=== PATIENT | male | born 1995 | race Caucasian/White ===

== ENCOUNTER 2016-03-08 06:10 | Emergency (ER) | payer OTHER ==
[~2016-03-08] VITALS: Ht 182.9 cm; Wt 88.0 kg
[~2016-03-08 06:10] MED LIST: CLIN1CAP6 PO; LEVO.1 PO; METO100T PO; MONT4CHW2 CHEW
[2016-03-08 06:14] VITALS: BP 145/72; PULSE 74; RESP 18; TEMP 100.2; O2SAT 98
[2016-03-08 07:57] VITALS: O2SAT 98
[2016-03-08] MEDS ORDERED: SODIUM CHLOR 0.9% 1000 ML INJ 1,000 ML IV SCH (08:02)
[2016-03-08] MEDS ORDERED: DEXAMETHASONE SOD PHOS 20 MG/5 ML VIAL IV ONE (08:15)
[2016-03-08] MEDS ORDERED: RESP: ALBUTEROL 2.5 MG/IPRATROPIUM 0.5 MG NEB (SCH) NEB ONE (08:15)
[2016-03-08] MEDS ORDERED: KETOROLAC TROMETHAMINE 30 MG/ML (IVP) VIAL IV PUSH ONE ×2 (08:15→10:00)
[2016-03-08] MEDS ORDERED: ACETAMINOPHEN 325 MG TAB PO ONE (08:15)
[2016-03-08] MEDS ORDERED: DICYCLOMINE HCL 10 MG CAP PO ONE (08:15)
[2016-03-08] MEDS ORDERED: SODIUM CHLORIDE 0.9% FLUSH 5 ML FLUSH IVF PRN (08:15)
[2016-03-08] MEDS ORDERED: ONDANSETRON HCL 4 MG/2 ML VIAL IVP ONE (08:15)
[2016-03-08 08:18] VITALS: BP 136/63; PULSE 93; RESP 15; O2SAT 98
[2016-03-08 08:30] VITALS: BP 136/63; PULSE 91; RESP 16; O2SAT 98
--- NOTE | 2016-03-08 08:33 | RADRPT ---
EXAM DATE/TIME: 03/08/2016 08:26 [place] COMPARISON: CHEST PA & LAT, November 14, 2015, 0:05. INDICATIONS : Short of breath. MEDICAL HISTORY : Heart myopathy. SURGICAL HISTORY : CABG. ENCOUNTER: Initial ACUITY: 1 day PAIN SCORE: 0/10 LOCATION: Bilateral chest FINDINGS: Rotated and underinflated portable AP view of the chest demonstrates a normal-sized cardiac silhouett e. Patient is post median sternotomy. Lungs are underinflated but no effusion, consolidation, or pneu mothorax is visualized. The bones and soft tissues demonstrate no acute finding. There is stable dext roscoliosis of the thoracic spine. CONCLUSION: Stable chest x-ray. No acute cardiopulmonary abnormality is identified. Zak Ellsworth MD on March 08, 2016 at 8:30 Board Certified Radiologist. This report was verified electronically.
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
[2016-03-08 08:43] LABS: AUTOMATED NEUTROPHIL # 3.7 TH/MM3 (1.8-7.7); BASOPHIL % 0.4 % (0.0-2.0); EOSINOPHIL % 0.3 % (0.0-4.0); HEMATOCRIT 39.8 % (39.0-51.0); HEMO FLAGS DIFF FINAL; LYMPH % 14.6 % (9.0-44.0); LYMPHOCYTE # 0.8 TH/MM3 (1.0-4.8); MEAN CELL VOLUME 84.2 FL (80.0-100.0); MEAN CORPUSCULAR HEMOGLOBIN 27.3 PG (27.0-34.0); MEAN CORPUSCULAR HGB CONC 32.4 % (32.0-36.0); MONO % 18.1 % (0.0-8.0); NEUT % 66.6 % (16.0-70.0); PLATELET COUNT 216 TH/MM3 (150-450); RED BLOOD COUNT 4.72 MIL/MM3 (4.50-5.90); RED CELL DISTRIBUTION WIDTH 16.1 % (11.6-17.2); WHITE BLOOD COUNT 5.6 TH/MM3 (4.0-11.0)
[2016-03-08 08:53] LABS: APTT (PATIENT) 29.4 SEC (24.3-30.1); PROTHROMBIN TIME - PATIENT 11.4 SEC (9.8-11.6)
[2016-03-08 09:01] LABS: ALT (GPT) 34 U/L (9-52); ANION GAP 10 MEQ/L (5-15); AST (GOT) 14 U/L (15-39); BICARBONATE 22.2 MEQ/L (21.0-32.0); BLOOD UREA NITROGEN 10 MG/DL (7-18); CHLORIDE 107 MEQ/L (98-107); GLOMERULAR FILTRATION RATE 76 ML/MIN (>89); POTASSIUM 3.6 MEQ/L (3.5-5.1); SODIUM (NA) 139 MEQ/L (136-145)
[2016-03-08 09:04] LABS: ALKALINE PHOSPHATASE 87 U/L (45-117); TOTAL BILIRUBIN ADULT 0.4 MG/DL (0.2-1.0)
[2016-03-08 09:10] LABS: BLOOD, URINE NEG (NEG); COMMENT (UR) CULT NOT INDICATED; CULTURE IF INDICATED CULT NOT INDICATED; GLUCOSE,URINE NEG (NEG); KETONE, URINE NEG (NEG); MUCUS URINE FEW /lpf (OCC); NITRITE,URINE NEG (NEG); URINE COLOR YELLOW (YELLW/STRAW)
[2016-03-08] MEDS ORDERED: OSEL75 PO (09:53)
[2016-03-08 10:09] VITALS: TEMP 99.3
[2016-03-08 16:44] LABS: C. DIFF EPI 027 PRESUMPTIVE NEGATIVE (NEGATIVE); C. DIFF TOXIN PCR NEGATIVE (NEGATIVE)
[2016-03-08] MEDS ORDERED: BENZ100 PO (21:18)
[2016-03-08] MEDS ORDERED: KETO10 PO (21:18)
[2016-03-08] MEDS ORDERED: PRED20 PO (21:18)
[2016-03-08] MEDS ORDERED: ZOFR4TAB PO (21:18)
== END 2016-03-08 10:23 | disposition home or self-care (01) ==
LOC: NEPE 06:10
DX: J10.1 Influenza due to other identified influenza virus with other respiratory manifestations (principal); E86.0 Dehydration; I42.2 Other hypertrophic cardiomyopathy; I25.10 Atherosclerotic heart disease of native coronary artery without angina pectoris; E03.9 Hypothyroidism, unspecified; Z72.0 Tobacco use
CPT/HCPCS: 71010; 80053; 81001; 83690; 85025; 85610; 85730; 87081; 87493; 87804; 87880; 96361; 96374; 96375; 96376; 99284; J1100; J1885; J2405; J7030

== ENCOUNTER 2016-03-08 20:49 | Emergency (ER) | payer OTHER ==
[~2016-03-08 20:49] MED LIST changes: +OSEL75 PO
[2016-03-08 20:55] VITALS: BP 145/77; PULSE 97; RESP 16; TEMP 98.7; O2SAT 99
[2016-03-08] MEDS ORDERED: SODIUM CHLOR 0.9% 1000 ML INJ 1,000 ML IV ONE (21:09)
[2016-03-08] MEDS ORDERED: ONDANSETRON HCL 4 MG/2 ML VIAL IVP ONE (21:15)
[2016-03-08] MEDS ORDERED: methylPREDNISolone SOD SUCC 125 MG/2 ML VIAL IV PUSH ONE (21:15)
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
[2016-03-08] MEDS ORDERED: BENZ100 PO (21:18)
[2016-03-08] MEDS ORDERED: ZOFR4TAB PO (21:18)
[2016-03-08] MEDS ORDERED: KETO10 PO (21:18)
[2016-03-08] MEDS ORDERED: PRED20 PO (21:18)
== END 2016-03-08 22:52 | disposition home or self-care (01) ==
LOC: NEPB 20:49
DX: J10.1 Influenza due to other identified influenza virus with other respiratory manifestations (principal); I42.1 Obstructive hypertrophic cardiomyopathy; I25.10 Atherosclerotic heart disease of native coronary artery without angina pectoris
CPT/HCPCS: 96361; 96374; 96375; 99283; J2405; J2930; J7030

== ENCOUNTER 2016-04-08 21:00 | Inpatient (IN) | payer OTHER ==
[~2016-04-08] VITALS: Ht 182.9 cm; Wt 88.5 kg
[~2016-04-08 21:00] MED LIST changes: +BENZ100 PO; +KETO10 PO; +PRED20 PO; +ZOFR4TAB PO
[2016-04-08 21:02] VITALS: BP 143/63; PULSE 78; RESP 20; TEMP 98.5; O2SAT 98
[2016-04-08] MEDS ORDERED: SODIUM CHLOR 0.9% 1000 ML INJ 1,000 ML IV SCH (21:36)
--- NOTE | 2016-04-08 21:41 | PD ---
HPI Chief Complaint: Abdominal Pain Time Seen by Provider: 21:27 Travel History International Travel<30 days: No Contact w/Intl Traveler<30days: No Traveled to known affect area: No History of Present Illness HPI 20-year-old male history of hypertrophic obstructive cardiomyopathy, hypothyroidism presents for evaluation of right upper quadrant abdominal pain. He reports this evening at approximately 6:37 PM he ate a hamburger and drank a few sips of beer. Shortly thereafter he developed right upper quadrant abdominal pain which she describes as stabbing, constant but getting worse in waves, associated with nausea and 2 episodes of green "bilious" vomiting. He tried taking a total of 1200 mg of ibuprofen but the pain persists which prompted evaluation. Denies any radiating pain symptoms, chest pain or shortness of breath, dysuria, flank pain, fevers or chills. He does report that he was hospitalized in late January in [place] with biliary colic type symptoms. He was told that he needed to have his gallbladder removed but he ended up returning here for school shortly thereafter without undergoing cholecystectomy. He has no other complaints at this time. PFSH Past Medical History Hx Anticoagulant Therapy: No Autoimmune Disease: No Heart Rhythm Problems: Yes Cancer: No Cardiomyopathy: Yes Cardiovascular Problems: Yes Chemotherapy: No Cerebrovascular Accident: No Coronary Artery Disease: Yes Diabetes: No Diminished Hearing: No Endocrine: Yes Genitourinary: No Immune Disorder: No Musculoskeletal: Yes (RECEIVES STEROID INJECTIONS FOR BACK) Neurologic: No Psychiatric: No Respiratory: No Immunizations Current: Yes Thyroid Disease: Yes (Hypothyroid) Past Surgical History Appendectomy: Yes (05/09/06) Cardiac Surgery: Yes (Removal of extra muscle out of mitral wall ) Hysterectomy: No Thoracic Surgery: Yes (Heart transplant age 6) Valve Replacement: Yes (removal of extra muscle out of mitrial wall ) Other Surgery: Yes (Subaortic resection) Social History Alcohol Use: Yes (occ) Tobacco Use: Yes (Cigars occ.) Substance Use: No Allergies-Medications (Allergen,Severity, Reaction): Coded Allergies: Penicillin (Verified Allergy, Intermediate, Rash, 04/08/16) Sulfa (Verified Allergy, Intermediate, Rash, 04/08/16) Imitrex (Verified Adverse Reaction, Severe, SVT, 04/08/16) Reported Meds & Prescriptions Reported Meds & Active Scripts Active Zofran (Ondansetron HCl) 4 Mg Tab 4 Mg PO Q6HR PRN Reported Metoprolol Succinate/HCTZ 100-12.5 ER 1 Tab Tab 1 Tab PO BID Synthroid (Levothyroxine Sodium) 100 Mcg Tab 100 Mcg PO DAILY Singulair (Montelukast Sodium) 4 Mg Chew 4 Mg CHEW HS Review of Systems Except as stated in HPI: all other systems reviewed are Neg Physical Exam Narrative GENERAL: Well-developed well-nourished male in no acute distress SKIN: Warm and dry. HEAD: Atraumatic. Normocephalic. EYES: Pupils equal and round. No scleral icterus. No injection or drainage. ENT: No nasal bleeding or discharge. Mucous membranes pink and moist. NECK: Trachea midline. No JVD. CARDIOVASCULAR: Regular rate and rhythm. 1+ holosystolic murmur noted. RESPIRATORY: No accessory muscle use. Clear to auscultation. Breath sounds equal bilaterally. GASTROINTESTINAL: Abdomen soft, tender to palpation right upper quadrant without guarding. No CVA tenderness. MUSCULOSKELETAL: No obvious deformities. No edema. NEUROLOGICAL: Awake and alert. No obvious cranial nerve deficits. Motor grossly within normal limits. Normal speech. PSYCHIATRIC: Appropriate mood and affect; insight and judgment normal. Data Data Last Documented VS Vital Signs Date Time Temp Pulse Resp B/P Pulse Ox O2 Delivery O2 Flow Rate FiO2 04/09/16 00:38 80 16 108/52 98 Room Air 04/08/16 21:02 98.5 Orders Complete Blood Count With Diff (04/08/16 21:36) Comprehensive Metabolic Panel (04/08/16 21:36) Lipase (04/08/16 21:36) Prothrombin Time / Inr (Pt) (04/08/16 21:36) Act Partial Throm Time (Ptt) (04/08/16 21:36) Us Abdomen Gallbladder (04/08/16 ) Iv Access Insert/Monitor (04/08/16 21:36) Ecg Monitoring (04/08/16 21:36) Oximetry (04/08/16 21:36) Ondansetron Inj (Zofran Inj) (04/08/16 21:45) Pantoprazole Inj (Protonix Inj) (04/08/16 21:45) Sodium Chlor 0.9% 1000 Ml Inj (Ns 1000 M (04/08/16 21:36) Sodium Chloride 0.9% Flush (Ns Flush) (04/08/16 21:45) Hydromorphone Pf Inj (Dilaudid Pf Inj) (04/08/16 21:45) Hydromorphone Pf Inj (Dilaudid Pf Inj) (04/08/16 22:45) Oral Contrast - Adult (04/08/16 22:56) Hydromorphone Pf Inj (Dilaudid Pf Inj) (04/09/16 00:30) Diatrizoate Liq (Md Marroquin Liq) (04/09/16 00:31) Ct Abd/Pel W Iv Contrast(Rout) (04/09/16 00:45) Iohexol 350 Inj (Omnipaque 350 Inj) (04/09/16 01:26) Ceftriaxone Inj (Rocephin Inj) (04/09/16 02:15) Metronidazole 500 Mg Inj (Flagyl 500 Mg (04/09/16 02:15) Admit Order (Ed Use Only) (04/09/16 ) Vital Signs (Adult) FRED.Q4H (04/09/16 02:15) Activity Oob Ad Pascale (04/09/16 02:15) Labs Laboratory Tests Test 04/08/16 21:45 White Blood Count 7.5 TH/MM3 Red Blood Count 3.80 MIL/MM3 Hemoglobin 10.6 GM/DL Hematocrit 32.4 % Mean Corpuscular Volume 85.2 FL Mean Corpuscular Hemoglobin 27.8 PG Mean Corpuscular Hemoglobin 32.7 % Concent Red Cell Distribution Width 17.0 % Platelet Count 363 TH/MM3 Mean Platelet Volume 7.3 FL Neutrophils (%) (Auto) 43.5 % Lymphocytes (%) (Auto) 45.1 % Monocytes (%) (Auto) 7.6 % Eosinophils (%) (Auto) 2.5 % Basophils (%) (Auto) 1.3 % Neutrophils # (Auto) 3.3 TH/MM3 Lymphocytes # (Auto) 3.4 TH/MM3 Monocytes # (Auto) 0.6 TH/MM3 Eosinophils # (Auto) 0.2 TH/MM3 Basophils # (Auto) 0.1 TH/MM3 CBC Comment DIFF FINAL Differential Comment Prothrombin Time 10.4 SEC Prothromb Time International 0.9 RATIO Ratio Activated Partial 25.7 SEC Thromboplast Time Sodium Level 141 MEQ/L Potassium Level 4.0 MEQ/L Chloride Level 106 MEQ/L Carbon Dioxide Level 26.9 MEQ/L Anion Gap 8 MEQ/L Blood Urea Nitrogen 17 MG/DL Creatinine 1.35 MG/DL Estimat Glomerular Filtration 67 ML/MIN Rate Random Glucose 101 MG/DL Calcium Level 8.9 MG/DL Total Bilirubin 0.5 MG/DL Aspartate Amino Transf 24 U/L (AST/SGOT) Alanine Aminotransferase 35 U/L (ALT/SGPT) Alkaline Phosphatase 89 U/L Total Protein 8.0 GM/DL Albumin 4.3 GM/DL Lipase 114 U/L MDM Medical Decision Making Medical Screen Exam Complete: Yes Emergency Medical Condition: Yes Medical Record Reviewed: Yes Interpretation(s) CBC hemoglobin 10.6 otherwise unremarkable CMP creatinine 1.35 otherwise unremarkable Differential Diagnosis Cholecystitis, biliary colic, choledocholithiasis, cholangitis, gastritis, pancreatitis Narrative Course 20-year-old male with right upper quadrant abdominal pain, nausea, vomiting after eating a hamburger this evening. Quadrant ultrasound has been ordered, basic lab work, Protonix, small dose of Dilaudid. The patient's hemoglobin is mildly low at 10.6, he does note that he gave blood about 1 week ago. Denies any hematochezia or hematemesis. Additional dose of 0.5 mg Dilaudid administered prior to ultrasound. At the end of my shift the patient was signed out to Dr. Hess pending CR/ ultrasound imaging. Holger Kline Apr 08, 2016 21:41
[2016-04-08] MEDS ORDERED: HYDROmorphone HCL PF 1 MG/ML VIAL IV PUSH ONE ×2 (21:45→22:45)
[2016-04-08] MEDS ORDERED: ONDANSETRON HCL 4 MG/2 ML VIAL IVP ONE (21:45)
[2016-04-08] MEDS ORDERED: SODIUM CHLORIDE 0.9% FLUSH 5 ML FLUSH IVF PRN (21:45)
[2016-04-08] MEDS ORDERED: PANTOPRAZOLE SODIUM 40 MG VIAL IVP ONE (21:45)
[2016-04-08 21:47] VITALS: PULSE 86; RESP 16; O2SAT 98
[2016-04-08 22:10] LABS: AUTOMATED NEUTROPHIL # 3.3 TH/MM3 (1.8-7.7); BASOPHIL # 0.1 TH/MM3 (0-0.2); BASOPHIL % 1.3 % (0.0-2.0); EOSINOPHIL # 0.2 TH/MM3 (0-0.4); EOSINOPHIL % 2.5 % (0.0-4.0); HEMATOCRIT 32.4 % (39.0-51.0); HEMO FLAGS DIFF FINAL; LYMPH % 45.1 % (9.0-44.0); LYMPHOCYTE # 3.4 TH/MM3 (1.0-4.8); MEAN CELL VOLUME 85.2 FL (80.0-100.0); MEAN CORPUSCULAR HEMOGLOBIN 27.8 PG (27.0-34.0); MEAN CORPUSCULAR HGB CONC 32.7 % (32.0-36.0); MONO % 7.6 % (0.0-8.0); NEUT % 43.5 % (16.0-70.0); PLATELET COUNT 363 TH/MM3 (150-450); WHITE BLOOD COUNT 7.5 TH/MM3 (4.0-11.0)
[2016-04-08 22:32] LABS: APTT (PATIENT) 25.7 SEC (24.3-30.1); INTERNATIONAL NORMALIZED RATIO 0.9 RATIO; PROTHROMBIN TIME - PATIENT 10.4 SEC (9.8-11.6)
[2016-04-08 22:38] LABS: ALKALINE PHOSPHATASE 89 U/L (45-117); TOTAL BILIRUBIN ADULT 0.5 MG/DL (0.2-1.0)
[2016-04-08 22:39] LABS: ALT (GPT) 35 U/L (9-52); ANION GAP 8 MEQ/L (5-15); AST (GOT) 24 U/L (15-39); BICARBONATE 26.9 MEQ/L (21.0-32.0); BLOOD UREA NITROGEN 17 MG/DL (7-18); CHLORIDE 106 MEQ/L (98-107); GLOMERULAR FILTRATION RATE 67 ML/MIN (>89); SODIUM (NA) 141 MEQ/L (136-145)
--- NOTE | 2016-04-08 23:45 | PD ---
Data Data Last Documented VS Vital Signs Date Time Temp Pulse Resp B/P Pulse Ox O2 Delivery O2 Flow Rate FiO2 04/09/16 00:38 80 16 108/52 98 Room Air 04/08/16 21:02 98.5 Orders Complete Blood Count With Diff (04/08/16 21:36) Comprehensive Metabolic Panel (04/08/16 21:36) Lipase (04/08/16 21:36) Prothrombin Time / Inr (Pt) (04/08/16 21:36) Act Partial Throm Time (Ptt) (04/08/16 21:36) Us Abdomen Gallbladder (04/08/16 ) Iv Access Insert/Monitor (04/08/16 21:36) Ecg Monitoring (04/08/16 21:36) Oximetry (04/08/16 21:36) Ondansetron Inj (Zofran Inj) (04/08/16 21:45) Pantoprazole Inj (Protonix Inj) (04/08/16 21:45) Sodium Chlor 0.9% 1000 Ml Inj (Ns 1000 M (04/08/16 21:36) Sodium Chloride 0.9% Flush (Ns Flush) (04/08/16 21:45) Hydromorphone Pf Inj (Dilaudid Pf Inj) (04/08/16 21:45) Hydromorphone Pf Inj (Dilaudid Pf Inj) (04/08/16 22:45) Oral Contrast - Adult (04/08/16 22:56) Hydromorphone Pf Inj (Dilaudid Pf Inj) (04/09/16 00:30) Diatrizoate Liq ( Gastroview Liq) (04/09/16 00:31) Ct Abd/Pel W Iv Contrast(Rout) (04/09/16 00:45) Iohexol 350 Inj (Omnipaque 350 Inj) (04/09/16 01:26) Ceftriaxone Inj (Rocephin Inj) (04/09/16 02:15) Metronidazole 500 Mg Inj (Flagyl 500 Mg (04/09/16 02:15) Admit Order (Ed Use Only) (04/09/16 ) Vital Signs (Adult) FRED.Q4H (04/09/16 02:15) Activity Oob Ad Pascale (04/09/16 02:15) Diet Npo (04/09/16 Breakfast) Labs Laboratory Tests Test 04/08/16 21:45 White Blood Count 7.5 TH/MM3 Red Blood Count 3.80 MIL/MM3 Hemoglobin 10.6 GM/DL Hematocrit 32.4 % Mean Corpuscular Volume 85.2 FL Mean Corpuscular Hemoglobin 27.8 PG Mean Corpuscular Hemoglobin 32.7 % Concent Red Cell Distribution Width 17.0 % Platelet Count 363 TH/MM3 Mean Platelet Volume 7.3 FL Neutrophils (%) (Auto) 43.5 % Lymphocytes (%) (Auto) 45.1 % Monocytes (%) (Auto) 7.6 % Eosinophils (%) (Auto) 2.5 % Basophils (%) (Auto) 1.3 % Neutrophils # (Auto) 3.3 TH/MM3 Lymphocytes # (Auto) 3.4 TH/MM3 Monocytes # (Auto) 0.6 TH/MM3 Eosinophils # (Auto) 0.2 TH/MM3 Basophils # (Auto) 0.1 TH/MM3 CBC Comment DIFF FINAL Differential Comment Prothrombin Time 10.4 SEC Prothromb Time International 0.9 RATIO Ratio Activated Partial 25.7 SEC Thromboplast Time Sodium Level 141 MEQ/L Potassium Level 4.0 MEQ/L Chloride Level 106 MEQ/L Carbon Dioxide Level 26.9 MEQ/L Anion Gap 8 MEQ/L Blood Urea Nitrogen 17 MG/DL Creatinine 1.35 MG/DL Estimat Glomerular Filtration 67 ML/MIN Rate Random Glucose 101 MG/DL Calcium Level 8.9 MG/DL Total Bilirubin 0.5 MG/DL Aspartate Amino Transf 24 U/L (AST/SGOT) Alanine Aminotransferase 35 U/L (ALT/SGPT) Alkaline Phosphatase 89 U/L Total Protein 8.0 GM/DL Albumin 4.3 GM/DL Lipase 114 U/L [facility] Supervised Visit with ARLEN: Yes Narrative Course Patient care assumed from Holger Kline [facility] at 2300. Briefly patient is a 20- year-old male presents right upper quadrant pain after eating a greasy hamburger tonight. Patient states she's had problems with his gallbladder in the past but is yet to have it removed. Patient denies any fever. He does state he has one episode of "bilious green vomiting". Patient does have an ultrasound which is equivocal for a coccus cholecystitis. CT scan of the abdomen performed after patient was given total of 2 mg Dilaudid and is negative for acute disease. Patient will be discussed with Dr. Miranda is laboratory operations coordinator for general surgery likely admitted for intractable abdominal pain and surgical consultation. Dr. Suárez has been consulted, will cover with roceparash and flagyl. Patient to CDU for night. Transition orders have been placed. Diagnosis Primary Impression: Right upper quadrant abdominal pain Admitting Information Admitting Physician Requests: Observation Condition: Stable Zeyad Hess MD Apr 08, 2016 23:45
[2016-04-09] VITALS (8 sets, daily range): BP systolic 94–129; BP diastolic 41–74; PULSE 64–87; RESP 14–20; TEMP 96.4–98.1; O2SAT 95–100
--- NOTE | 2016-04-09 00:06 | RADRPT ---
EXAM DATE/TIME: 04/08/2016 23:06 [facility] COMPARISON: No previous studies available for comparison. INDICATIONS : Right upper quadrant pain. MEDICAL HISTORY : Hypothyroidism. Cardiomyopathy. Coronary artery disease. Back pain. Irregul ar heart beat. Blood transfusion. SURGICAL HISTORY : Appendectomy. Heart transplant. Mitral valve surgery. Right knee arthrosco py. Subaortic resction. ENCOUNTER: Initial ACUITY: 1 day PAIN SCORE: 10/10 LOCATION: Right upper quadrant MEASUREMENTS: LIVER: 15.4 cm length COMMON DUCT: 4 mm RIGHT KIDNEY: 9.9 x 5.1 x 4.4 cm FINDINGS: Ultrasound of the upper abdomen demonstrates increased echogenicity of the liver compatible with fatt y infiltration or hepatocellular disease. The spleen is unremarkable. The pancreas is not visualized secondary to overlying bowel gas. The right kidney is unremarkable. The gallbladder wall is slightly thickened but no stones are identified. A positive sonographic Slater sign is present. Cholecystitis is not excluded. CONCLUSION: Possible acalculus cholecystitis. Radionuclide imaging is recommended for further evaluation if clini heaven indicated. There is fatty infiltration of the liver. Dickson Wheat MD on April 09, 2016 at 0:03 Board Certified Radiologist. This report was verified electronically.
[2016-04-09] MEDS ORDERED: HYDROmorphone HCL PF 1 MG/ML VIAL IV PUSH ONE (00:30)
[2016-04-09] MEDS ORDERED: DIATRIZOATE MEGLUM/DIATRIZOATE SOD 9 ML CUP ONE (00:31)
[2016-04-09] MEDS ORDERED: IOHEXOL 350 MG/ML 10 ML VIAL (for RAD DIAG) IV ONE (01:26)
--- NOTE | 2016-04-09 01:55 | RADRPT ---
EXAM DATE/TIME: 04/09/2016 01:26 [facility] COMPARISON: CT ABDOMEN & PELVIS W CONTRAST, September 01, 2015, 22:22. INDICATIONS : Right upper quadrant abdominal pain. IV CONTRAST: 80 cc Omnipaque 350 (iohexol) IV ORAL CONTRAST: Prescribed oral contrast ingested. RADIATION DOSE: 15.81 CTDIvol (mGy) MEDICAL HISTORY : Cardiovascular disease. Coronary artery disease. SURGICAL HISTORY : Appendectomy. ENCOUNTER: Initial ACUITY: 1 week PAIN SCALE: 4/10 LOCATION: Right upper quadrant abdomen TECHNIQUE: Volumetric scanning of the abdomen and pelvis was performed. Using automated exposure control and ad justment of the mA and/or kV according to patient size, radiation dose was kept as low as reasonably achievable to obtain optimal diagnostic quality images. FINDINGS: LOWER LUNGS: The visualized lower lungs are clear. LIVER: Homogeneous density without lesion. There is no dilation of the biliary tree. No calcified gallston es. SPLEEN: Normal size without lesion. PANCREAS: Within normal limits. KIDNEYS: Normal in size and shape. There is no mass, stone or hydronephrosis. ADRENAL GLANDS: Within normal limits. VASCULAR: There is no aortic aneurysm. BOWEL/MESENTERY: The stomach, small bowel, and colon demonstrate no acute abnormality. There is no free intraperitone al air or fluid. ABDOMINAL WALL: Within normal limits. RETROPERITONEUM: There is no lymphadenopathy. BLADDER: No wall thickening or mass. REPRODUCTIVE: Within normal limits. INGUINAL: There is no lymphadenopathy or hernia. MUSCULOSKELETAL: Moderate scoliotic deformity is present to the left with a rotatory component with the apex at L3 CONCLUSION: 1. No evidence of acute abdominal or pelvic process. No masses are identified. Dickson Wheat MD on April 09, 2016 at 1:51 Board Certified Radiologist. This report was verified electronically.
[2016-04-09] MEDS ORDERED: cefTRIAXone INJ 1,000 MG in SODIUM CHLORIDE 0.9% INJ 100 ML IV ONE (02:15)
[2016-04-09] MEDS ORDERED: metroNIDAZOLE 500 MG INJ 100 ML IV ONE (02:15)
[2016-04-09] MEDS ORDERED: ONDANSETRON HCL 4 MG/2 ML VIAL IV PUSH PRN (02:45)
[2016-04-09] MEDS ORDERED: SODIUM CHLOR 0.9% 1000 ML INJ 1,000 ML IV SCH ×2 (02:45→08:06)
[2016-04-09] MEDS: MORPHINE SULFATE 4 MG/ML INJ IV PRN ×3 (04:11→22:03)
[2016-04-09] MEDS ORDERED: METO-489 PO (05:09)
[2016-04-09] MEDS ORDERED: MAGNESIUM HYDROXIDE SUSP 30 ML CUP PO PRN (08:15)
[2016-04-09] MEDS ORDERED: SODIUM CHLORIDE 0.9% FLUSH 5 ML FLUSH IVF PRN (08:15)
[2016-04-09] MEDS ORDERED: ACETAMINOPHEN/HYDROcodone 325 MG/5 MG TAB PO PRN ×4 (08:15→18:15)
--- NOTE | 2016-04-09 08:50 | MH ---
cc: NEDA MCKEON DATE OF ADMISSION: 04/09/2016 CHIEF COMPLAINT Right upper quadrant pain. HISTORY OF PRESENT ILLNESS The patient is a 20-year-old male who presented to [facility] with intractable right upper quadrant pain. The patient had a history of right upper quadrant pain and biliary colic that was managed non-operatively in [place], as well as a strong family history of gallbladder disease. The patient ate a cheeseburger and macaroni and cheese and developed severe 10/10 right upper quadrant pain just below his xiphoid and to the right of his xiphoid. This is the pain that he had previous but much worse this time. The patient was evaluated in the emergency department with an ultrasound and CT scan suggestive of gallbladder disease, although no stones were visualized. Liver function tests were within normal limits. The patient did not respond to IV medication analgesics and had persistent pain. Therefore, there was concern for early acute cholecystitis due to the persistent pain and positive Slater's sign on exam. General surgery was consulted for evaluation and treatment of possible acute cholecystitis. The patient denied any fevers, chills, night sweats, nausea, vomiting, constipation, diarrhea, jaundice or any other sick contacts or illnesses. REVIEW OF SYSTEMS A 12-point review of systems was discussed with the patient and negative except for the pertinent positives mentioned above in history present illness. PAST MEDICAL HISTORY 1. History of cardiomyopathy treated with surgery in 2011. 2. Back pain. 3. Hypothyroidism. PAST SURGICAL HISTORY 1. Appendectomy in 2006. 2. Surgery for cardiomyopathy in 2011. ALLERGIES 1. PENICILLIN. 2. SULFA. 3. IMITREX MEDICATIONS 1. Synthroid. 2. Singulair. 3. Metoprolol. FAMILY HISTORY Strong history of benign gallbladder disease. SOCIAL HISTORY The patient drinks alcohol, occasionally smokes cigars, denies illicit drug use. PHYSICAL EXAMINATION VITAL SIGNS: Temperature 98.5 degrees, pulse 86, respiratory rate 16, blood pressure 143/63, O2 saturation 98%. GENERAL: The patient is a well-developed, well-nourished white male in no acute distress. He does not appear acute or chronically ill. HEENT: Head is normocephalic, atraumatic. Pupils round and reactive to light. Sclera is anicteric. Mucous membranes are moist. NECK: Supple. No JVD. LUNGS: Clear to auscultation bilaterally. Non-labored breathing pattern. HEART: Regular rate and rhythm. No murmurs. ABDOMEN: Soft. Tender to palpation in the right upper quadrant. Positive Slater's sign with deep inspiration. No ascites. No hernias. No organomegaly. BACK: No CVA tenderness. EXTREMITIES: No clubbing, cyanosis or edema. NEUROLOGIC: The patient is awake, alert and oriented x4, moving all extremities. Nonfocal. Cranial nerves II through XII grossly intact. ASSESSMENT AND PLAN The patient is a 20-year-old male with history of cardiomyopathy asymptomatic at this time with likely acute cholecystitis with severe unremitting right upper quadrant pain. I discussed with the patient the diagnosis and management of acute cholecystitis. I discussed the antibiotics and non-operative management as well as surgical intervention. Despite the patient's heart history he strongly desires to undergo laparoscopic cholecystectomy as he has had previous episodes in the past and would like to have pain relief from these recurrent episodes. We will continue the patient's home medications, give adequate analgesia and start the patient on appropriate antibiotics. Will perform a laparoscopic cholecystectomy at next available urgent operating time either later today or possibly tomorrow morning. MD NIGEL Gillespie/GALA /8:04 AM /8:34 AM
[2016-04-09] MEDS: HYDROCHLOROTHIAZIDE 12.5 MG CAP PO SCH ×2 (09:00→20:51)
[2016-04-09] MEDS ORDERED: NON-FORMULARY DRUG (Metoprolol Succinate/HCTZ 100-12.5 ER 1 TAB) PO SCH (09:00)
[2016-04-09] MEDS: METOPROLOL SUCCINATE 50 MG EXTENDED RELEASE TAB PO SCH ×2 (09:00→20:51)
[2016-04-09] MEDS ORDERED: LACTATED RINGER'S 1000 ML INJ 1,000 ML IV ONE ×2 (09:49)
[2016-04-09] MEDS ORDERED: KETOROLAC TROMETHAMINE 60 MG/2 ML (IM) VIAL IM ONE (09:49)
[2016-04-09] MEDS ORDERED: PHENYLEPH/NS 1000 MCG/10 ML SYR IV ONE (09:49)
[2016-04-09] MEDS ORDERED: NEOSTIGMINE 3 MG/3 ML SYR IV ONE (09:49)
[2016-04-09] MEDS ORDERED: PROPOFOL 200 MG/20 ML AMP IV ONE (09:49)
[2016-04-09] MEDS: ONDANSETRON HCL 4 MG/2 ML VIAL IV PRN ×2 (10:12→20:29)
[2016-04-09] MEDS: LEVOTHYROXINE SODIUM 100 MCG TAB PO SCH (10:12)
[2016-04-09] MEDS: PANTOPRAZOLE SODIUM 40 MG VIAL IVP SCH (10:13)
[2016-04-09] MEDS: CIPROFLOXACIN 400 MG PREMIX 200 ML IV SCH ×2 (10:13→20:27)
[2016-04-09] MEDS: HYDROmorphone HCL PF 1 MG/ML VIAL IVP PRN ×2 (11:11→13:51)
[2016-04-09] MEDS: metroNIDAZOLE 500 MG INJ 100 ML IV SCH ×2 (12:06→19:00)
[2016-04-09] MEDS ORDERED: BUPIVACAINE/EPINEPHRINE 0.25% PF 30 ML VIAL ONE (16:22)
[2016-04-09] MEDS ORDERED: ceFAZolin INJ 1,000 MG VIAL ONE (16:22)
--- NOTE | 2016-04-09 18:01 | HHI.PR ---
Immediate Post Op Note Procedure Date: Apr 09, 2016 Pre Op Diagnosis: (1) Acute cholecystitis Post Op Diagnosis: (1) Acute cholecystitis Surgeon: Chet Adams Java Programmer(s): none Procedure: Laparoscopic Cholecystectomy Findings: acute inflammation/edema Complications: none Specimen(s) removed: GB Estimated blood loss: 10ml Anesthesia: General Drains: None IVF Patient to: PACU Patient Condition: Good Chet Adams MD Apr 09, 2016 18:01
[2016-04-09] MEDS ORDERED: *HYDROmorphone PF 1 MG VIAL PERIprocedural Use ONLY ONE ×2 (18:14→18:28)
[2016-04-09] MEDS ORDERED: Post-op Orders (for Pharmacy) MISC XX ONE (18:15)
[2016-04-09] MEDS ORDERED: MIDAZOLAM HCL 2 MG/2 ML VIAL ONE (18:20)
[2016-04-09] MEDS ORDERED: fentaNYL CITRATE 250 MCG/5 ML AMP ONE (18:21)
[2016-04-09] MEDS ORDERED: MORPHINE SULFATE 4 MG/ML INJ ONE (18:21)
[2016-04-09] MEDS ORDERED: LORazepam 2 MG/ML VIAL ONE (18:40)
[2016-04-09] MEDS ORDERED: LORazepam 2 MG/ML VIAL IV ONE (19:15)
[2016-04-09] MEDS ORDERED: HYDROmorphone HCL PF 1 MG/ML VIAL IV ONE ×2 (19:15)
[2016-04-09] MEDS ORDERED: HYDROmorphone HCL PF 1 MG/ML VIAL IV PRN (19:15)
[2016-04-09] MEDS: KETOROLAC TROMETHAMINE 30 MG/ML (IVP) VIAL IVP PRN (20:04)
[2016-04-09] MEDS: SODIUM CHLORIDE 0.9% FLUSH 5 ML FLUSH IVF SCH (20:24)
[2016-04-09] MEDS ORDERED: diphenhydrAMINE HCL 50 MG/ML VIAL ONE (20:35)
[2016-04-09] MEDS: MONTELUKAST SODIUM 4 MG CHEWABLE TAB CHEW SCH (20:50)
[2016-04-10] VITALS (7 sets, daily range): BP systolic 98–130; BP diastolic 56–71; PULSE 66–86; RESP 16–18; TEMP 98–100.6; O2SAT 96–99
[2016-04-10] MEDS: HYDROmorphone HCL PF 1 MG/ML VIAL IVP PRN ×8 (00:59→22:06)
[2016-04-10] MEDS: KETOROLAC TROMETHAMINE 30 MG/ML (IVP) VIAL IVP PRN ×3 (03:16→17:33)
[2016-04-10] MEDS: MORPHINE SULFATE 4 MG/ML INJ IV PRN ×3 (04:32→23:24)
[2016-04-10] MEDS: LEVOTHYROXINE SODIUM 100 MCG TAB PO SCH (06:27)
[2016-04-10] MEDS: PANTOPRAZOLE SODIUM 40 MG VIAL IVP SCH (08:13)
[2016-04-10] MEDS: METOPROLOL SUCCINATE 50 MG EXTENDED RELEASE TAB PO SCH ×2 (08:14→20:45)
[2016-04-10] MEDS: SODIUM CHLORIDE 0.9% FLUSH 5 ML FLUSH IVF SCH ×2 (08:14→21:48)
[2016-04-10] MEDS: HYDROCHLOROTHIAZIDE 12.5 MG CAP PO SCH ×2 (08:14→21:00)
[2016-04-10] MEDS: SODIUM CHLORIDE 0.9% FLUSH 5 ML FLUSH IVF PRN ×5 (10:31→18:51)
--- NOTE | 2016-04-10 11:49 | HHI.PR ---
Subjective Subjective Notes pain not fully controlled on [place] Objective Vitals/I&O Vital Signs Date Time Temp Pulse Resp B/P Pulse Ox O2 Delivery O2 Flow Rate FiO2 04/10/16 11:20 98.2 66 18 98/60 96 04/09/16 20:00 Room Air 04/09/16 18:40 1 Cardiovascular: Regular Lungs: Clear Abdomen: Non-distended Extremities: No edema Narrative Exam incisions c/d/i A/P Assessment and Plan 20yo male s/p Lap [place], doing well. - change to percocet - DC home if pain controlled on oral meds Chet Adams MD Apr 10, 2016 11:49
[2016-04-10] MEDS ORDERED: diphenhydrAMINE HCL 25 MG CAP PO PRN (12:00)
[2016-04-10] MEDS ORDERED: diphenhydrAMINE HCL 25 MG CAP PO ONE (12:00)
[2016-04-10] MEDS: oxyCODONE/ACETAMINOPHEN 10 MG/325 MG TAB PO PRN ×2 (12:11→20:45)
[2016-04-10] MEDS ORDERED: ENOXAPARIN SODIUM 40 MG/0.4 ML SYRINGE SQ SCH (17:15)
[2016-04-10] MEDS: DOCUSATE SODIUM 100 MG CAP PO SCH ×2 (17:27→21:00)
[2016-04-10] MEDS ORDERED: diphenhydrAMINE HCL 50 MG CAP PO PRN (18:00)
[2016-04-10] MEDS: ONDANSETRON HCL 4 MG/2 ML VIAL IV PRN (19:58)
[2016-04-10] MEDS: MONTELUKAST SODIUM 4 MG CHEWABLE TAB CHEW SCH (21:48)
[2016-04-11] VITALS: BP 113/72; PULSE 72; RESP 20; TEMP 100; O2SAT 99
[2016-04-11] MEDS: KETOROLAC TROMETHAMINE 30 MG/ML (IVP) VIAL IVP PRN ×2 (01:07→08:12)
[2016-04-11] MEDS: MORPHINE SULFATE 4 MG/ML INJ IV PRN (03:45)
[2016-04-11 04:12] VITALS: PULSE 80; RESP 18; TEMP 99; O2SAT 99
[2016-04-11 08:00] VITALS: BP 124/67; PULSE 95; RESP 20; TEMP 101.6; O2SAT 100
[2016-04-11] MEDS: ONDANSETRON HCL 4 MG/2 ML VIAL IV PRN (08:11)
[2016-04-11] MEDS: SODIUM CHLORIDE 0.9% FLUSH 5 ML FLUSH IVF SCH (08:12)
[2016-04-11] MEDS: PANTOPRAZOLE SODIUM 40 MG VIAL IVP SCH (08:12)
[2016-04-11] MEDS ORDERED: IBUPROFEN 600 MG TAB PO PRN (08:30)
[2016-04-11] MEDS: HYDROCHLOROTHIAZIDE 12.5 MG CAP PO SCH (09:00)
[2016-04-11 09:10] VITALS: TEMP 99.7
[2016-04-11] MEDS: DOCUSATE SODIUM 100 MG CAP PO SCH (09:18)
[2016-04-11] MEDS: METOPROLOL SUCCINATE 50 MG EXTENDED RELEASE TAB PO SCH (09:19)
[2016-04-11] MEDS: LEVOTHYROXINE SODIUM 100 MCG TAB PO SCH (09:19)
[2016-04-11] MEDS: oxyCODONE/ACETAMINOPHEN 10 MG/325 MG TAB PO PRN ×2 (09:19→13:19)
[2016-04-11 12:00] VITALS: BP 121/68; PULSE 78; RESP 15; TEMP 99; O2SAT 99
[2016-04-11 12:12] LABS: AUTOMATED NEUTROPHIL # 4.4 TH/MM3 (1.8-7.7); BASOPHIL % 0.4 % (0.0-2.0); EOSINOPHIL # 0.1 TH/MM3 (0-0.4); EOSINOPHIL % 1.7 % (0.0-4.0); HEMATOCRIT 26.1 % (39.0-51.0); HEMO FLAGS DIFF FINAL; LYMPH % 19.3 % (9.0-44.0); LYMPHOCYTE # 1.2 TH/MM3 (1.0-4.8); MEAN CELL VOLUME 86.1 FL (80.0-100.0); MEAN CORPUSCULAR HEMOGLOBIN 28.2 PG (27.0-34.0); MEAN CORPUSCULAR HGB CONC 32.8 % (32.0-36.0); MONO % 8.3 % (0.0-8.0); NEUT % 70.3 % (16.0-70.0); PLATELET COUNT 264 TH/MM3 (150-450); RED BLOOD COUNT 3.03 MIL/MM3 (4.50-5.90); WHITE BLOOD COUNT 6.3 TH/MM3 (4.0-11.0)
[2016-04-11 12:29] LABS: ANION GAP 8 MEQ/L (5-15); AST (GOT) 15 U/L (15-39); BICARBONATE 28.1 MEQ/L (21.0-32.0); BLOOD UREA NITROGEN 14 MG/DL (7-18); CHLORIDE 105 MEQ/L (98-107); GLOMERULAR FILTRATION RATE 76 ML/MIN (>89); POTASSIUM 3.9 MEQ/L (3.5-5.1); SODIUM (NA) 141 MEQ/L (136-145)
[2016-04-11 12:33] LABS: ALKALINE PHOSPHATASE 71 U/L (45-117); ALT (GPT) 26 U/L (9-52); TOTAL BILIRUBIN ADULT 0.3 MG/DL (0.2-1.0)
[2016-04-11 13:20] VITALS: TEMP 98.4
--- NOTE | 2016-04-11 13:34 | MP ---
cc: NEDA MCKEON DATE OF SURGERY: 04/09/2016 PREOPERATIVE DIAGNOSIS Acute cholecystitis. POSTOPERATIVE DIAGNOSIS Acute cholecystitis. PROCEDURE Laparoscopic cholecystectomy. ANESTHESIA General. ATTENDING SURGEON Dr. Mckeon. LEAD CASE MANAGER Staff. BLOOD LOSS 10 ccs. COMPLICATIONS None. FINDINGS Some edema of the gallbladder consistent with minimal chronic inflammation. No other intra-abdominal pathology. INDICATIONS FOR PROCEDURE The patient is a 20-year-old male who developed severe right upper quadrant pain over the last 24 hours. The patient had a history of previous pain and was diagnosed with gallbladder disease of some type in [place]. The pain was not relieved after several hours in the emergency department with IV pain medications and he had persistent nausea and vomiting and pain and was unable to be treated as outpatient. His imaging did not show any significant findings, although clinically the patient had physical exam consistent with acute cholecystitis. After discussion with the patient about the risks, benefits, alternatives to laparoscopic cholecystectomy as well as his increased risk due to his history of cardiomyopathy, the patient wished to undergo the procedure. All questions were answered to his satisfaction. PROCEDURE After informed consent was obtained, the patient was taken to the operating room and placed in the supine position and placed under general endotracheal anesthesia. The patient's abdomen was shaved, prepped and draped in a sterile fashion. Time-out was performed. The abdomen was entered through OptiVu type technique with a 0 degree 5 mm camera with a 5 mm port just to the left of the umbilicus. Easily entered the abdomen under visualization and insufflated the abdomen without difficulty. We placed a 5 mm 30 degree camera through this port and surveyed the abdomen. There was no evidence of any complication from entry and there was no evidence of any intra-abdominal pathology. We placed a 10-mm port in the subxiphoid position and two 5 mm ports in the right upper quadrant under visualization with the laparoscope. We were then able to grasp the gallbladder and retract it upward and evaluate the gallbladder. There was no chronic inflammation, although there was some acute edema around the infundibulum in particular. We did use hook electrocautery to take down the visceral peritoneum around the triangle of [place]. We used the [place] dissector to define the cystic duct and cystic artery. There was a small cystic duct and a critical view of safety was obtained. We triply clipped the small cystic duct proximal and clipped distal and single clipped the cystic artery proximal and one distal and divided these structures with laparoscopic Endo geo. We used the hook electrocautery to take the gallbladder off the gallbladder fossa without difficulty. We took the gallbladder out of the abdomen with the EndoCatch bag at the subxiphoid port. We did have a very small amount of bile spillage during the surgery with no spillage of any stones. We were able to use suction [employer] or [employer] to remove this easily per the right upper quadrant and did irrigate this with sterile saline until all suctioning was clear. We identified our clips and there was no bleeding, no bile leak. No signs of any complication. We placed the omentum back into the gallbladder fossa. We removed all ports under visualization with the laparoscope and expressed pneumoperitoneum. The fascia of the 10 mm subxiphoid port was closed with a single 0 Vicryl suture. The skin was closed with 4-0 Monocryl and Dermabond. The patient was discontinued from anesthesia, taken to the PACU in stable condition. The patient tolerated the procedure well. No apparent complications. All counts were correct and I was present and scrubbed for the entire procedure. MD NIGEL Gillespie/CADE /6:09 PM /1:16 PM MTDStephanie
== END 2016-04-11 15:15 | disposition home or self-care (01) | DRG 418 ==
LOC: NEPC 21:00 → NEDA 04-09 02:17 → NEPFCDU 04-09 04:42 → N07B 04-09 16:57 → H6YA 04-09 21:47
PROVIDERS: ADMIT Surgery; ATTEND Surgery
PROC: 0FT44ZZ Resection of Gallbladder, Percutaneous Endoscopic Approach (ICD-10-PCS; principal; 2016-04-09 16:55)
DX: K81.0 Acute cholecystitis (principal); I42.1 Obstructive hypertrophic cardiomyopathy; E03.9 Hypothyroidism, unspecified; I25.10 Atherosclerotic heart disease of native coronary artery without angina pectoris; M54.9 Dorsalgia, unspecified; Z72.0 Tobacco use; I49.9 Cardiac arrhythmia, unspecified
CPT/HCPCS: 74177; 76705; 80053; 83690; 85025; 85610; 85730; 87804; 88304; 96374; 96375; 96376; C9113; J0690; J0696; J0744; J1170; J1200; J1885; J2060; J2250; J2270; J2370; J2405; J2710; J3010; J7030; J7120; Q0163; Q9963; Q9967

== ENCOUNTER 2016-04-29 18:22 | Emergency (ER) | payer OTHER ==
[~2016-04-29] VITALS: Ht 182.9 cm; Wt 101.0 kg
[~2016-04-29 18:22] MED LIST changes: -BENZ100 PO; -CLIN1CAP6 PO; -KETO10 PO; +METO-489 PO; -METO100T PO; -OSEL75 PO; -PRED20 PO
[2016-04-29 18:36] VITALS: BP 138/69; PULSE 97; RESP 16; TEMP 98.8; O2SAT 100
[2016-04-29] MEDS ORDERED: PERC5TAB12 PO ×2 (18:44→20:49)
[2016-04-29] MEDS ORDERED: ONDANSETRON HCL 4 MG/2 ML VIAL IVP ONE (19:30)
[2016-04-29] MEDS ORDERED: SODIUM CHLORIDE 0.9% FLUSH 5 ML FLUSH IVF PRN (19:30)
[2016-04-29] MEDS ORDERED: HYDROmorphone HCL PF 1 MG/ML VIAL IVS ONE (19:30)
--- NOTE | 2016-04-29 19:30 | PD ---
HPI Chief Complaint: Abdominal Pain Time Seen by Provider: 19:19 Travel History International Travel<30 days: No Contact w/Intl Traveler<30days: No Traveled to known affect area: No History of Present Illness HPI The patient is a 20-year-old male who complains of nausea, vomiting and diarrhea since 10 AM today. 2 weeks ago the patient had a laparoscopic cholecystectomy. All of his pain is in the right upper quadrant. The pain does not radiate. He states the pain is an 8/10 and aching in character. The patient also had an appendectomy as a child. He denies any fever. He denies any blood in the stool or vomitus. He states he was getting better following the laparoscopic cholecystectomy but this was a sudden change. PFSH Past Medical History Hx Anticoagulant Therapy: No Autoimmune Disease: No Heart Rhythm Problems: Yes Cancer: No Cardiomyopathy: Yes Cardiovascular Problems: Yes Chemotherapy: No Cerebrovascular Accident: No Coronary Artery Disease: Yes Diabetes: No Diminished Hearing: No Endocrine: Yes Gastrointestinal Disorders: Yes Genitourinary: No Immune Disorder: No Musculoskeletal: Yes (RECEIVES STEROID INJECTIONS FOR BACK) Neurologic: No Psychiatric: No Respiratory: No Immunizations Current: Yes Thyroid Disease: Yes (Hypothyroidism) Tetanus Vaccination: > 5 Years Influenza Vaccination: Yes Past Surgical History Appendectomy: Yes (05/09/06) Cardiac Surgery: Yes (Removal of extra muscle out of mitral wall ) Cholecystectomy: Yes (2017) Hysterectomy: No Thoracic Surgery: Yes (Heart transplant age 6) Valve Replacement: Yes (removal of extra muscle out of mitrial wall ) Other Surgery: Yes (Subaortic resection) Social History Alcohol Use: Yes (occ) Tobacco Use: Yes (Cigars occ.) Substance Use: No Allergies-Medications (Allergen,Severity, Reaction): Coded Allergies: Penicillin (Verified Allergy, Intermediate, Rash, 04/29/16) Sulfa (Verified Allergy, Intermediate, Rash, 04/29/16) Imitrex (Verified Adverse Reaction, Severe, SVT, 04/29/16) Reported Meds & Prescriptions Reported Meds & Active Scripts Active Zofran (Ondansetron HCl) 4 Mg Tab 4 Mg PO Q6HR PRN Percocet (Oxycodone-Acetaminophen) 5-325 mg Tab 1 Tab PO Q6H PRN Zofran (Ondansetron HCl) 4 Mg Tab 4 Mg PO Q6HR PRN Reported Percocet (Oxycodone-Acetaminophen) 5-325 mg Tab 1 Tab PO Q4H PRN Metoprolol Succinate/HCTZ 100-12.5 ER 1 Tab Tab 1 Tab PO BID Synthroid (Levothyroxine Sodium) 100 Mcg Tab 100 Mcg PO DAILY Singulair (Montelukast Sodium) 4 Mg Chew 4 Mg CHEW HS Review of Systems Except as stated in HPI: all other systems reviewed are Neg Physical Exam Narrative GENERAL: The patient is alert, oriented 3 in moderate apparent distress with his abdominal pain. His vital signs are normal. SKIN: Warm and dry. HEAD: Atraumatic. Normocephalic. EYES: Pupils equal and round. No scleral icterus. No injection or drainage. ENT: No nasal bleeding or discharge. Mucous membranes pink and moist. NECK: Trachea midline. No JVD. CARDIOVASCULAR: Regular rate and rhythm. No murmur appreciated. RESPIRATORY: No accessory muscle use. Clear to auscultation. Breath sounds equal bilaterally. GASTROINTESTINAL: Abdomen shows tenderness and some guarding in the right upper quadrant to direct palpation. No other tenderness is present and the abdomen is nondistended. Hepatic and splenic margins not palpable. MUSCULOSKELETAL: No obvious deformities. No clubbing. No cyanosis. No edema. NEUROLOGICAL: Awake and alert. No obvious cranial nerve deficits. Motor grossly within normal limits. Normal speech. PSYCHIATRIC: Appropriate mood and affect; insight and judgment normal. Data Data Last Documented VS Vital Signs Date Time Temp Pulse Resp B/P Pulse Ox O2 Delivery O2 Flow Rate FiO2 04/29/16 20:47 82 18 125/58 98 Room Air 04/29/16 18:36 98.8 Orders Complete Blood Count With Diff (04/29/16 19:25) Comprehensive Metabolic Panel (04/29/16 19:25) Lipase (04/29/16 19:25) Urinalysis - C+S If Indicated (04/29/16 19:25) Ct Abd/Pel W Iv Contrast(Rout) (04/29/16 19:25) Iv Access Insert/Monitor (04/29/16 19:25) Ecg Monitoring (04/29/16 19:25) Oximetry (04/29/16 19:25) Ondansetron Inj (Zofran Inj) (04/29/16 19:30) Sodium Chloride 0.9% Flush (Ns Flush) (04/29/16 19:30) Hydromorphone Pf Inj (Dilaudid Pf Inj) (04/29/16 19:30) Iohexol 350 Inj (Omnipaque 350 Inj) (04/29/16 20:05) Hydromorphone Pf Inj (Dilaudid Pf Inj) (04/29/16 20:15) Ondansetron Inj (Zofran Inj) (04/29/16 20:15) Labs Laboratory Tests Test 04/29/16 04/29/16 18:47 20:20 White Blood Count 8.3 TH/MM3 Red Blood Count 4.03 MIL/MM3 Hemoglobin 10.4 GM/DL Hematocrit 33.1 % Mean Corpuscular Volume 82.1 FL Mean Corpuscular Hemoglobin 25.9 PG Mean Corpuscular Hemoglobin 31.5 % Concent Red Cell Distribution Width 16.2 % Platelet Count 389 TH/MM3 Mean Platelet Volume 7.2 FL Neutrophils (%) (Auto) 82.5 % Lymphocytes (%) (Auto) 12.7 % Monocytes (%) (Auto) 3.9 % Eosinophils (%) (Auto) 0.4 % Basophils (%) (Auto) 0.5 % Neutrophils # (Auto) 6.9 TH/MM3 Lymphocytes # (Auto) 1.0 TH/MM3 Monocytes # (Auto) 0.3 TH/MM3 Eosinophils # (Auto) 0.0 TH/MM3 Basophils # (Auto) 0.0 TH/MM3 CBC Comment DIFF FINAL Differential Comment Sodium Level 140 MEQ/L Potassium Level 3.9 MEQ/L Chloride Level 104 MEQ/L Carbon Dioxide Level 28.8 MEQ/L Anion Gap 7 MEQ/L Blood Urea Nitrogen 16 MG/DL Creatinine 1.40 MG/DL Estimat Glomerular Filtration 65 ML/MIN Rate Random Glucose 127 MG/DL Calcium Level 8.6 MG/DL Total Bilirubin 0.5 MG/DL Aspartate Amino Transf 19 U/L (AST/SGOT) Alanine Aminotransferase 36 U/L (ALT/SGPT) Alkaline Phosphatase 87 U/L Total Protein 8.0 GM/DL Albumin 4.0 GM/DL Lipase 111 U/L Urine Color YELLOW Urine Turbidity CLEAR Urine pH 7.0 Urine Specific [place] 1.016 Urine Protein NEG mg/dL Urine Glucose (UA) NEG mg/dL Urine Ketones NEG mg/dL Urine Occult Blood NEG Urine Nitrite NEG Urine Bilirubin NEG Urine Leukocyte Esterase NEG Urine Squamous Epithelial 0-5 /hpf Cells Microscopic Urinalysis Comment CULT NOT INDICATED MDM Medical Decision Making Medical Screen Exam Complete: Yes Emergency Medical Condition: Yes Medical Record Reviewed: Yes Interpretation(s) The CBC is normal except for hemoglobin of 10.4 and hematocrit of 33.1. The complete metabolic profile shows a GFR of 65, creatinine 1.4 but is otherwise unremarkable. The lipase is normal. The CT abdomen/pelvis with IV contrast shows no acute disease. Differential Diagnosis Gastroenteritis, postsurgical pain, abdominal pain etiology undetermined, drug seeking behavior Narrative Course The patient requests some more Percocets. He states he ran out and promises he will follow-up with his surgeon. I can find no evidence of any surgical complication on the CT and the blood work is essentially normal. EForsce review reveals the patient on the got 50 tablets of Percocet 10, 60 tablets again on the of Percocet 10 and 50 tablets on the of last month of Percocet 10. In addition from another physician he had 20 tablets of Tylenol threes. The previous month he was given tramadol and in January he was given Percocet again. The patient is apparently a regular user of strong narcotics. Diagnosis Primary Impression: Abdominal pain of unknown etiology Additional Impression: Drug-seeking behavior Additional Instructions: Follow-up with your surgeon. I can find no etiology for your pain and nausea. We will give you Zofran for nausea, it is one every 6 hours as needed for nausea. Med/Other Pt SpecificInfo: Prescription(s) given Scripts Ondansetron (Zofran)4 Mg Tab4 Mg PO Q6HR PRN (NAUSEA OR VOMITING) #21 TAB Ref 0 Prov:Jacques Gallo MD 04/29/16 Oxycodone-Acetaminophen (Percocet)5-325 mg Tab1 Tab PO Q6H PRN (PAIN) #10 TAB Ref 0 Prov:Jacques Gallo MD 04/29/16 Disposition: 01 DISCHARGE HOME Condition: Stable Jacques Gallo MD Apr 29, 2016 19:30
[2016-04-29 19:45] LABS: AUTOMATED NEUTROPHIL # 6.9 TH/MM3 (1.8-7.7); BASOPHIL % 0.5 % (0.0-2.0); EOSINOPHIL % 0.4 % (0.0-4.0); HEMATOCRIT 33.1 % (39.0-51.0); HEMO FLAGS DIFF FINAL; LYMPH % 12.7 % (9.0-44.0); MEAN CELL VOLUME 82.1 FL (80.0-100.0); MEAN CORPUSCULAR HEMOGLOBIN 25.9 PG (27.0-34.0); MEAN CORPUSCULAR HGB CONC 31.5 % (32.0-36.0); MONO % 3.9 % (0.0-8.0); NEUT % 82.5 % (16.0-70.0); PLATELET COUNT 389 TH/MM3 (150-450); RED BLOOD COUNT 4.03 MIL/MM3 (4.50-5.90); RED CELL DISTRIBUTION WIDTH 16.2 % (11.6-17.2); WHITE BLOOD COUNT 8.3 TH/MM3 (4.0-11.0)
[2016-04-29] MEDS ORDERED: IOHEXOL 350 MG/ML 10 ML VIAL (for RAD DIAG) IV ONE (20:05)
[2016-04-29 20:08] LABS: CHLORIDE 104 MEQ/L (98-107); POTASSIUM 3.9 MEQ/L (3.5-5.1); SODIUM (NA) 140 MEQ/L (136-145)
--- NOTE | 2016-04-29 20:12 | RADHPO ---
EXAM DATE/TIME: 04/29/2016 19:43 [facility] COMPARISON: CT ABDOMEN & PELVIS W CONTRAST, April 09, 2016, 1:26. INDICATIONS : Right upper quadrant pain and vomiting 2 weeks status post cholecystectomy. IV CONTRAST: 70 cc Omnipaque 350 (iohexol) IV ORAL CONTRAST: No oral contrast ingested. RADIATION DOSE: 18.01 CTDIvol (mGy) MEDICAL HISTORY : Cardiovascular disease. SURGICAL HISTORY : Cholecystectomy. Appendectomy.Heart transplant ENCOUNTER: Initial ACUITY: 1 day PAIN SCALE: 7/10 LOCATION: Right upper quadrant TECHNIQUE: Volumetric scanning of the abdomen and pelvis was performed. Using automated exposure control and ad justment of the mA and/or kV according to patient size, radiation dose was kept as low as reasonably achievable to obtain optimal diagnostic quality images. FINDINGS: No pleural or pericardial effusions. The patient is status post cholecystectomy. Liver, spleen, pancr eas, stomach, adrenal glands, bilateral kidneys are unremarkable. Urinary bladder and prostate are un remarkable. No evidence of bowel obstruction. The patient is status post appendectomy. There is no ad enopathy or aneurysm. Lung bases are clear. Osseous structures demonstrate levoscoliosis. CONCLUSION: No acute disease. Sarkis Brewster MD on April 29, 2016 at 20:09 Board Certified Radiologist. This report was verified electronically.
[2016-04-29 20:13] LABS: ANION GAP 7 MEQ/L (5-15); BICARBONATE 28.8 MEQ/L (21.0-32.0); BLOOD UREA NITROGEN 16 MG/DL (7-18)
[2016-04-29] MEDS ORDERED: ONDANSETRON HCL 4 MG/2 ML VIAL IV ONE (20:15)
[2016-04-29] MEDS ORDERED: HYDROmorphone HCL PF 1 MG/ML VIAL IVP ONE (20:15)
[2016-04-29 20:16] LABS: ALT (GPT) 36 U/L (9-52); AST (GOT) 19 U/L (15-39); GLOMERULAR FILTRATION RATE 65 ML/MIN (>89)
[2016-04-29 20:17] LABS: TOTAL BILIRUBIN ADULT 0.5 MG/DL (0.2-1.0)
[2016-04-29 20:19] LABS: ALKALINE PHOSPHATASE 87 U/L (45-117)
[2016-04-29 20:35] LABS: BLOOD, URINE NEG (NEG); GLUCOSE,URINE NEG (NEG); KETONE, URINE NEG (NEG); NITRITE,URINE NEG (NEG)
[2016-04-29 20:41] LABS: URINE COLOR YELLOW (YELLW/STRAW)
[2016-04-29 20:42] VITALS: RESP 18; O2SAT 98
[2016-04-29 20:42] LABS: SQUAMOUS EPITHELIAL CELL URINE 0-5 /hpf (0-5)
[2016-04-29 20:47] VITALS: BP 125/58; PULSE 82; RESP 18; O2SAT 98
[2016-04-29 20:49] LABS: COMMENT (UR) CULT NOT INDICATED; CULTURE IF INDICATED CULT NOT INDICATED
[2016-04-29] MEDS ORDERED: ZOFR4TAB PO (20:50)
== END 2016-04-29 21:24 | disposition home or self-care (01) ==
LOC: PHED 18:22
DX: R10.9 Unspecified abdominal pain (principal); Z76.5 Malingerer [conscious simulation]; R19.7 Diarrhea, unspecified; Z72.0 Tobacco use
CPT/HCPCS: 74177; 80053; 81001; 83690; 85025; 96374; 96375; 96376; 99284; J1170; J2405; Q9967

== ENCOUNTER 2016-05-13 21:28 | Emergency (ER) | payer OTHER ==
[~2016-05-13] VITALS: Ht 182.9 cm; Wt 92.0 kg
[~2016-05-13 21:28] MED LIST changes: +PERC5TAB12 PO
[2016-05-13 21:32] VITALS: BP 147/71; PULSE 84; RESP 16; TEMP 97.9; O2SAT 99
[2016-05-13] MEDS ORDERED: SODIUM CHLOR 0.9% 1000 ML INJ 1,000 ML IV SCH (21:45)
[2016-05-13] MEDS ORDERED: SODIUM CHLORIDE 0.9% FLUSH 5 ML FLUSH IVF PRN (21:45)
[2016-05-13] MEDS ORDERED: ONDANSETRON HCL 4 MG/2 ML VIAL IVP ONE (21:45)
[2016-05-13] MEDS ORDERED: MORPHINE SULFATE 4 MG/ML INJ IV PUSH ONE ×2 (21:45→23:30)
[2016-05-13] MEDS ORDERED: METO100T PO (21:48)
[2016-05-13] MEDS ORDERED: MONT10TA2 PO (21:48)
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
[2016-05-13 22:12] VITALS: RESP 18; O2SAT 98
[2016-05-13 22:23] LABS: AUTOMATED NEUTROPHIL # 3.2 TH/MM3 (1.8-7.7); BASOPHIL # 0.1 TH/MM3 (0-0.2); BASOPHIL % 0.9 % (0.0-2.0); EOSINOPHIL # 0.2 TH/MM3 (0-0.4); EOSINOPHIL % 3.1 % (0.0-4.0); HEMATOCRIT 32.2 % (39.0-51.0); HEMO FLAGS DIFF FINAL; MEAN CELL VOLUME 80.7 FL (80.0-100.0); MEAN CORPUSCULAR HEMOGLOBIN 26.2 PG (27.0-34.0); MEAN CORPUSCULAR HGB CONC 32.4 % (32.0-36.0); MONO % 12.5 % (0.0-8.0); NEUT % 51.5 % (16.0-70.0); PLATELET COUNT 234 TH/MM3 (150-450); RED BLOOD COUNT 3.99 MIL/MM3 (4.50-5.90); RED CELL DISTRIBUTION WIDTH 16.8 % (11.6-17.2); WHITE BLOOD COUNT 6.2 TH/MM3 (4.0-11.0)
[2016-05-13 22:41] LABS: ALKALINE PHOSPHATASE 80 U/L (45-117); TOTAL BILIRUBIN ADULT 0.7 MG/DL (0.2-1.0)
[2016-05-13] MEDS ORDERED: IOHEXOL 350 MG/ML 10 ML VIAL (for RAD DIAG) IV ONE (22:43)
[2016-05-13 22:45] LABS: ALT (GPT) 27 U/L (9-52); ANION GAP 12 MEQ/L (5-15); AST (GOT) 46 U/L (15-39); BICARBONATE 21.1 MEQ/L (21.0-32.0); BLOOD UREA NITROGEN 9 MG/DL (7-18); CHLORIDE 108 MEQ/L (98-107); GLOMERULAR FILTRATION RATE 78 ML/MIN (>89); SODIUM (NA) 141 MEQ/L (136-145)
[2016-05-13 22:46] LABS: POTASSIUM 5.1 MEQ/L (3.5-5.1)
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
[2016-05-13] MEDS ORDERED: IBUP-232 PO (23:28)
[2016-05-13] MEDS ORDERED: CLIN150 PO (23:28)
[2016-05-13] MEDS ORDERED: NORC5TAB PO (23:28)
== END 2016-05-14 00:03 | disposition home or self-care (01) ==
LOC: NEPA 21:28
DX: S31.119A Laceration without foreign body of abdominal wall, unspecified quadrant without penetration into peritoneal cavity, initial encounter (principal); W45.8XXA Other foreign body or object entering through skin, initial encounter; Y93.9 Activity, unspecified; Y92.414 Local residential or business street as the place of occurrence of the external cause
CPT/HCPCS: 74177; 80053; 85025; 96361; 96374; 96375; 96376; 99284; J2270; J2405; J7030; Q9967

== ENCOUNTER 2016-05-18 21:49 | Emergency (ER) | payer OTHER ==
[~2016-05-18] VITALS: Ht 182.9 cm; Wt 89.0 kg
[~2016-05-18 21:49] MED LIST changes: +CLIN150 PO; +IBUP-232 PO; -METO-489 PO; +METO100T PO; +MONT10TA2 PO; -MONT4CHW2 CHEW; +NORC5TAB PO; -PERC5TAB12 PO; -ZOFR4TAB PO
[2016-05-18 21:50] VITALS: BP 137/94; PULSE 96; RESP 20; TEMP 98.6; O2SAT 100
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
[2016-05-18] MEDS ORDERED: KETOROLAC TROMETHAMINE 60 MG/2 ML (IM) VIAL IM ONE (22:45)
== END 2016-05-18 23:10 | disposition home or self-care (01) ==
LOC: NEPA 21:49
DX: S31.119D Laceration without foreign body of abdominal wall, unspecified quadrant without penetration into peritoneal cavity, subsequent encounter (principal); E03.9 Hypothyroidism, unspecified; Z86.79 Personal history of other diseases of the circulatory system; Z87.19 Personal history of other diseases of the digestive system; Z87.39 Personal history of other diseases of the musculoskeletal system and connective tissue; W45.8XXD Other foreign body or object entering through skin, subsequent encounter
CPT/HCPCS: 96372; 99282; J1885

== ENCOUNTER 2016-05-27 21:35 | Emergency (ER) | payer OTHER ==
[~2016-05-27] VITALS: Ht 182.9 cm; Wt 86.0 kg
[2016-05-27 21:37] VITALS: BP 138/77; PULSE 98; RESP 16; TEMP 98.4; O2SAT 97
== END 2016-05-27 22:37 | disposition left against medical advice (07) ==
LOC: NED 21:35
DX: R68.89 Other general symptoms and signs (principal)
CPT/HCPCS: 99281

== ENCOUNTER 2016-06-12 23:05 | Emergency (ER) | payer OTHER ==
[~2016-06-12] VITALS: Ht 182.9 cm; Wt 94.9 kg
[2016-06-12 23:21] VITALS: BP 136/80; PULSE 116; RESP 18; TEMP 98.3; O2SAT 99
[2016-06-13] MEDS ORDERED: NAPR500T PO (02:59)
[2016-06-13 03:05] VITALS: BP 147/72; PULSE 84; O2SAT 100
--- NOTE | 2016-06-13 03:24 | PD ---
HPI Chief Complaint: Back/ Neck Pain or Injury Time Seen by Provider: 03:19 Travel History International Travel<30 days: No Contact w/Intl Traveler<30days: No Traveled to known affect area: No History of Present Illness HPI The patient is a 20-year-old male who at 6 PM lifted a heavy tire and felt something pop in the lumbar region of his back. He laid down but when he woke up he had severe pain in that area. There is no radiation of pain. He took some ibuprofen and naproxen but this did not help. He denies any numbness, weakness or radiation of pain down his legs. He denies any bladder or bowel dysfunction. PFSH Past Medical History Hx Anticoagulant Therapy: No Autoimmune Disease: No Heart Rhythm Problems: Yes Cancer: No Cardiomyopathy: Yes Cardiovascular Problems: Yes (CARDIOMYOPATHY) Chemotherapy: No Cerebrovascular Accident: No Coronary Artery Disease: Yes Diabetes: No Diminished Hearing: No Endocrine: Yes Gastrointestinal Disorders: Yes Genitourinary: No Immune Disorder: No Implanted Vascular Access Dvce: No Musculoskeletal: Yes (RECEIVES STEROID INJECTIONS FOR BACK) Neurologic: No Psychiatric: No Respiratory: No Immunizations Current: Yes Thyroid Disease: Yes (Hypothyroidism) Past Surgical History Appendectomy: Yes (05/09/06) Cardiac Surgery: Yes (Removal of extra muscle out of mitral wall ) Cholecystectomy: Yes (2017) Hysterectomy: No Thoracic Surgery: Yes (Heart transplant age 6) Valve Replacement: Yes (removal of extra muscle out of mitrial wall ) Other Surgery: Yes (Subaortic resection) Social History Alcohol Use: Yes (occ) Tobacco Use: Yes (electronic cigarrette) Substance Use: No Allergies-Medications (Allergen,Severity, Reaction): Coded Allergies: Penicillin (Verified Allergy, Intermediate, Rash, 06/13/16) Sulfa (Verified Allergy, Intermediate, Rash, 06/13/16) Imitrex (Verified Adverse Reaction, Severe, SVT, 06/13/16) Reported Meds & Prescriptions Reported Meds & Active Scripts Active Lortab (Hydrocodone-Acetaminophen) 5-325 Mg Tab 1 Tab PO Q6H PRN Ibuprofen 800 Mg Tab 800 Mg PO TID Flexeril (Cyclobenzaprine HCl) 10 Mg Tab 10 Mg PO TID Ibuprofen 600 Mg Tab 600 Mg PO Q6H PRN Reported Naproxen 500 Mg Tab 500 Mg PO BID Singulair (Montelukast Sodium) 10 Mg Tab 10 Mg PO DAILY Metoprolol Tartrate 100 Mg Tab 100 Mg PO BID Synthroid (Levothyroxine Sodium) 100 Mcg Tab 100 Mcg PO DAILY Review of Systems Except as stated in HPI: all other systems reviewed are Neg Physical Exam Narrative GENERAL: The patient is alert, oriented 3 in moderate apparent distress with his lumbar pain. His vital signs initially showed a heart rate of 116 but repeat heart rate is 84. The rest of his vital signs are normal. He does not appear in any way intoxicated. SKIN: Focused skin assessment warm/dry. HEAD: Atraumatic. Normocephalic. EYES: Pupils equal and round. No scleral icterus. No injection or drainage. ENT: No nasal bleeding or discharge. Mucous membranes pink and moist. NECK: Trachea midline. No JVD. CARDIOVASCULAR: Regular rate and rhythm. No murmur appreciated. RESPIRATORY: No accessory muscle use. Clear to auscultation. Breath sounds equal bilaterally. GASTROINTESTINAL: Abdomen soft, non-tender, nondistended. Hepatic and splenic margins not palpable. MUSCULOSKELETAL: No obvious deformities. No clubbing. No cyanosis. No edema. There is tenderness around the L3-L4 spinous process area midline. No deformities noted. I can reproduce the patient's pain by pressing on this area. NEUROLOGICAL: Awake and alert. No obvious cranial nerve deficits. Motor grossly within normal limits. Normal speech. PSYCHIATRIC: Appropriate mood and affect; insight and judgment normal. Data Data Last Documented VS Vital Signs Date Time Temp Pulse Resp B/P Pulse Ox O2 Delivery O2 Flow Rate FiO2 06/13/16 03:05 84 147/72 100 Room Air 06/12/16 23:21 98.3 18 Orders Spine, Lumbar Comp W/Obliq (06/13/16 03:19) Ketorolac Inj (Toradol Inj) (06/13/16 03:30) Orphenadrine Inj (Norflex Inj) (06/13/16 03:30) Oxycodone-Acetamin 10-325 Mg (Percocet 1 (06/13/16 04:30) MDM Medical Decision Making Medical Screen Exam Complete: Yes Emergency Medical Condition: Yes Medical Record Reviewed: Yes Differential Diagnosis Herniated nucleus pulposus, acute lumbar strain, compression fracture lumbar spine, subluxation lumbar spine Narrative Course The patient has an acute lumbar strain. The Toradol and Flexeril did help he states that he wants something more for pain. He also wants a school and work excuse. Impression: Acute lumbar strain Plan: The patient is given Flexeril 10 mg 3 times daily, Motrin 800 mg 3 times daily and Lortab 5 No. 30. He needs to follow-up with his primary care physician. Diagnosis Primary Impression: Acute lumbar back pain Additional Instructions: As we discussed, do not drink alcohol or drive on the Flexeril or Lortab 5. Follow up with your primary care physician later this week or next week. A heating pad may be of benefit, turn onto the lowest setting an interpose a towel between your skin and the pad. Med/Other Pt SpecificInfo: Prescription(s) given Scripts Hydrocodone-Acetaminophen (Lort[place])5-325 Mg Tab1 Tab PO Q6H PRN (PAIN) #30 TAB Ref 0 Prov:Jacques Gallo MD 06/13/16 Ibuprofen 800 Mg Etn464 Mg PO TID #44 TAB Ref 0 Prov:Jacques Gallo MD 06/13/16 Cyclobenzaprine (Flexeril)10 Mg Tab10 Mg PO TID #60 TAB Ref 0 Prov:Jacques Gallo MD 06/13/16 Jacques Gallo MD Jun 13, 2016 03:24
[2016-06-13] MEDS ORDERED: KETOROLAC TROMETHAMINE 60 MG/2 ML (IM) VIAL IM ONE (03:30)
[2016-06-13] MEDS ORDERED: ORPHENADRINE INJ 60 MG/2 ML AMP IM ONE (03:30)
--- NOTE | 2016-06-13 03:43 | RADHPO ---
EXAM DATE/TIME: 06/13/2016 03:23 [facility] COMPARISON: No previous studies available for comparison. INDICATIONS : Lower back pain after lifting a tire today. MEDICAL HISTORY : None. SURGICAL HISTORY : None. ENCOUNTER: Initial ACUITY: 1 day PAIN SCORE: 10/10 LOCATION: Bilateral lower back. FINDINGS: There are five non-rib bearing vertebral bodies. The vertebral bodies are in normal alignment withou t evidence of subluxation or scoliosis. The disc spaces are maintained. The posterior elements are intact without evidence of spondylolysis. The pedicles are intact. Bony mineralization is normal. No fracture is identified. Cholecystectomy clips CONCLUSION: Unremarkable examination of the lumbar spine. Cristian Silvestre MD on June 13, 2016 at 3:41 Board Certified Radiologist. This report was verified electronically.
[2016-06-13] MEDS ORDERED: CYCL1TAB29 PO (04:25)
[2016-06-13] MEDS ORDERED: IBUP800T23 PO (04:25)
[2016-06-13] MEDS ORDERED: HYDR-3533 PO (04:25)
[2016-06-13] MEDS ORDERED: oxyCODONE/ACETAMINOPHEN 10 MG/325 MG TAB PO ONE (04:30)
[2016-06-13] MEDS ORDERED: PHENERGAN 25 MG IM ONE ×2 (04:45)
[2016-06-13 04:53] VITALS: BP 140/54; O2SAT 96
== END 2016-06-13 05:02 | disposition home or self-care (01) ==
LOC: PHED 23:05
DX: S39.012A Strain of muscle, fascia and tendon of lower back, initial encounter (principal); M54.5 Low back pain; I42.9 Cardiomyopathy, unspecified; I25.10 Atherosclerotic heart disease of native coronary artery without angina pectoris; E03.9 Hypothyroidism, unspecified; F17.200 Nicotine dependence, unspecified, uncomplicated; X50.0XXA Overexertion from strenuous movement or load, initial encounter; Y93.9 Activity, unspecified; Y92.9 Unspecified place or not applicable; Y99.8 Other external cause status
CPT/HCPCS: 72110; 96372; 99283; J1885; J2360

== ENCOUNTER 2016-07-21 21:15 | Emergency (ER) | payer OTHER ==
[~2016-07-21] VITALS: Ht 182.9 cm; Wt 97.0 kg
[~2016-07-21 21:15] MED LIST changes: -CLIN150 PO; +CYCL1TAB29 PO; +HYDR-3533 PO; +IBUP800T23 PO; +NAPR500T PO; -NORC5TAB PO
[2016-07-21 21:26] VITALS: BP 139/75; PULSE 85; RESP 18; TEMP 98.2; O2SAT 100
[2016-07-21] MEDS ORDERED: METO100T9 PO (21:36)
[2016-07-21] MEDS ORDERED: DICL75TA PO (21:36)
[2016-07-21] MEDS ORDERED: MONT10TA2 PO (21:36)
--- NOTE | 2016-07-21 22:17 | PD ---
HPI Chief Complaint: Pain: Acute or Chronic Time Seen by Provider: 21:48 Travel History International Travel<30 days: No Contact w/Intl Traveler<30days: No Traveled to known affect area: No History of Present Illness HPI Patient 21-year-old male presents emergency department for evaluation of right foot pain. Patient states that he was taking a tire of a car at work and dropped the tire onto his foot. Patient states happened approximately 2:00. He was evaluated in urgent care facility with an x-ray his paperwork to say so which was negative. He was discharged and states he's been taking them at home without any relief. Patient states he doesn't think he is going to be able to sleep this amount of pain control. Review the patient's records show that his been here multiple times for multiple chronic pain conditions. Eforsce showed significant use of narcotics in the past. Patient was here in May for chronic back pain was prescribed narcotics that time. Patient denies any fever denies any abdominal pain nausea vomiting or other injuries. PFSH Past Medical History Hx Anticoagulant Therapy: No Autoimmune Disease: No Heart Rhythm Problems: Yes Cancer: No Cardiomyopathy: Yes Cardiovascular Problems: Yes (CARDIOMYOPATHY) Chemotherapy: No Cerebrovascular Accident: No Coronary Artery Disease: Yes Diabetes: No Diminished Hearing: No Endocrine: Yes Gastrointestinal Disorders: Yes Genitourinary: No Immune Disorder: No Implanted Vascular Access Dvce: No Musculoskeletal: Yes (Receives steroid injections for back ) Neurologic: No Psychiatric: No Respiratory: No Immunizations Current: Yes Thyroid Disease: Yes (Hypothyroidism) Tetanus Vaccination: Unknown Influenza Vaccination: Yes Past Surgical History Appendectomy: Yes (05/09/06) Cardiac Surgery: Yes (Removal of extra muscle out of mitral wall ) Cholecystectomy: Yes (2017) Hysterectomy: No Thoracic Surgery: Yes (Heart transplant age 6) Valve Replacement: Yes (removal of extra muscle out of mitrial wall ) Other Surgery: Yes (Subaortic resection) Social History Alcohol Use: Yes ("Rarely") Tobacco Use: Yes ("Cigars rarely" ) Substance Use: No Allergies-Medications (Allergen,Severity, Reaction): Coded Allergies: Penicillin (Verified Allergy, Intermediate, Rash, 07/21/16) Sulfa (Verified Allergy, Intermediate, Rash, 07/21/16) Imitrex (Verified Adverse Reaction, Severe, SVT, 07/21/16) Reported Meds & Prescriptions Reported Meds & Active Scripts Active Reported Diclofenac Sodium DR (Diclofenac Sodium) 75 Mg Tabdr 75 Mg PO BID Singulair (Montelukast Sodium) 10 Mg Tab 10 Mg PO HS Metoprolol Succinate ER 24 HR (Metoprolol Succinate) 100 Mg Tab 100 Mg PO BID Synthroid (Levothyroxine Sodium) 100 Mcg Tab 100 Mcg PO DAILY Review of Systems Except as stated in HPI: all other systems reviewed are Neg Physical Exam Narrative GENERAL: Well-nourished, well-developed patient. No apparent distress SKIN: Focused skin assessment warm/dry. HEAD: Normocephalic. EYES: No scleral icterus. No injection or drainage. NECK: Supple, trachea midline. No JVD or lymphadenopathy. CARDIOVASCULAR: Regular rate and rhythm without murmurs, gallops, or rubs. RESPIRATORY: Breath sounds equal bilaterally. No accessory muscle use. GASTROINTESTINAL: Abdomen soft, non-tender, nondistended. MUSCULOSKELETAL: No cyanosis, or edema. Left lower extremity: No apparent trauma to the left foot ankle tib-fib knee. Right lower extremity shows no tenderness to the right knee tib-fib and ankle. There is some minimal tenderness to the dorsum of the right foot. Range of motion of the toes is intact. And relates even with no apparent pain. No edema is appreciated. Pulses motor and sensory intact distally in all 4 extremities. Compartments are soft. BACK: Nontender without obvious deformity. No CVA tenderness. Data Data Last Documented VS Vital Signs Date Time Temp Pulse Resp B/P Pulse Ox O2 Delivery O2 Flow Rate FiO2 07/21/16 21:26 98.2 85 18 139/75 100 Room Air Orders Ketorolac Inj (Toradol Inj) (07/21/16 22:30) [facility] Medical Decision Making Medical Screen Exam Complete: Yes Emergency Medical Condition: Yes Differential Diagnosis Contusion, strain, sprain, fracture is already been excluded today. Narrative Course pATIENT was initially visited by one of the PAs here, they recognized each other and the patient requested to see the physician instead. My evaluation patient is calm and collected. He was offered a repeat x-ray but told him that contusions are usually treated with NSAIDs rest and ibuprofen as well as compression. Verbalized understanding and stated that he's been taking NSAIDs and they've not been working. Patient states he doesn't think this can be able to sleep tonight. Patient was offered a dose of Toradol in the emergency department and declined. Patient was then offered Ultram in the emergency department I informed him I would not be discharging him narcotics. Patient then stated that he didn't think he would be able to cope with the pain without narcotics. Again he appears calm. I confronted him about his E forced this time and asked him when the last time he had prescription for narcotics was and he said it was 3 months ago. Patient has had multiple scripts from multiple providers in the past 3 months. I gave him 3 opportunities asking repeatedly if he has had any narcotic scripts prior to that. He was confronted with the knowledge of receiving Percocet prescription here for his back pain in May and he states that he "forgot about it". At this point I not inclined to treat him with narcotics given in the emergency department. He was offered a short referral for a second time and he was agreeable. He was then discharged to follow-up with orthopedics and his primary care physician. Discussed symptomatic management. He placed his boots on when ambulating from the emergency department in no distress Diagnosis Primary Impression: Foot contusion Qualified Code: S90.31XA - Contusion of right foot, initial encounter Additional Impression: Drug-seeking behavior Referrals: Chuy Hendricks MD [facility] Patient Instructions: General Instructions, RICE Therapy (GEN) Disposition: 01 DISCHARGE HOME Condition: Stable Zeyad Hess MD July 21, 2016 22:17
[2016-07-21] MEDS ORDERED: KETOROLAC TROMETHAMINE 60 MG/2 ML (IM) VIAL IM ONE (22:30)
== END 2016-07-21 22:25 | disposition home or self-care (01) ==
LOC: PHEFT 21:15
DX: S90.31XA Contusion of right foot, initial encounter (principal); I42.9 Cardiomyopathy, unspecified; I25.10 Atherosclerotic heart disease of native coronary artery without angina pectoris; E03.9 Hypothyroidism, unspecified; Z94.1 Heart transplant status; Z76.5 Malingerer [conscious simulation]; Z95.2 Presence of prosthetic heart valve; W22.8XXA Striking against or struck by other objects, initial encounter; Y93.89 Activity, other specified; Y92.69 Other specified industrial and construction area as the place of occurrence of the external cause; Y99.0 Civilian activity done for income or pay
CPT/HCPCS: 96372; 99284; J1885

== ENCOUNTER 2016-07-30 01:03 | Emergency (ER) | payer OTHER ==
[~2016-07-30 01:03] MED LIST changes: -CYCL1TAB29 PO; +DICL75TA PO; -HYDR-3533 PO; -IBUP-232 PO; -IBUP800T23 PO; -METO100T PO; +METO100T9 PO; -NAPR500T PO
[2016-07-30 01:06] VITALS: BP 138/82; PULSE 97; RESP 16; TEMP 99.1; O2SAT 97
[2016-07-30] MEDS ORDERED: KETOROLAC TROMETHAMINE 60 MG/2 ML (IM) VIAL IM ONE (01:45)
--- NOTE | 2016-07-30 02:20 | PD ---
HPI Chief Complaint: Injury Time Seen by Provider: 01:30 Travel History International Travel<30 days: No Contact w/Intl Traveler<30days: No Traveled to known affect area: No History of Present Illness HPI Patient is a 21-year-old male presenting emergency department for evaluation of right foot pain. Patient dropped a large tire on his foot at work over a week ago. He was initially evaluated urgent care where there was a negative x-ray performed. He then came to this emergency department and was seen and evaluated and 07/21/16. He states that the pain has not gotten any better. He states it's throbbing and painful. He reports his pain as a 6 out of 10. He denies any numbness, tingling, weakness. Patient denies any new injury or trauma. PFSH Past Medical History Hx Anticoagulant Therapy: No Autoimmune Disease: No Heart Rhythm Problems: Yes Cancer: No Cardiomyopathy: Yes Cardiovascular Problems: Yes (CARDIOMYOPATHY) Chemotherapy: No Cerebrovascular Accident: No Coronary Artery Disease: Yes Diabetes: No Diminished Hearing: No Endocrine: Yes Gastrointestinal Disorders: Yes Genitourinary: No Immune Disorder: No Implanted Vascular Access Dvce: No Musculoskeletal: Yes (Receives steroid injections for back ) Neurologic: No Psychiatric: No Respiratory: No Immunizations Current: Yes Thyroid Disease: Yes (Hypothyroidism) ?: Not Past Surgical History Appendectomy: Yes (05/09/06) Cardiac Surgery: Yes (Removal of extra muscle out of mitral wall ) Cholecystectomy: Yes (2017) Hysterectomy: No Thoracic Surgery: Yes (Heart transplant age 6) Valve Replacement: Yes (removal of extra muscle out of mitrial wall ) Other Surgery: Yes (Subaortic resection) Social History Alcohol Use: Yes ("Rarely") Tobacco Use: Yes ("Cigars rarely" ) Substance Use: No Allergies-Medications (Allergen,Severity, Reaction): Coded Allergies: Penicillin (Verified Allergy, Intermediate, Rash, 07/21/16) Sulfa (Verified Allergy, Intermediate, Rash, 07/21/16) Imitrex (Verified Adverse Reaction, Severe, SVT, 07/21/16) Reported Meds & Prescriptions Reported Meds & Active Scripts Active Reported Diclofenac Sodium DR (Diclofenac Sodium) 75 Mg Tabdr 75 Mg PO BID Singulair (Montelukast Sodium) 10 Mg Tab 10 Mg PO HS Metoprolol Succinate ER 24 HR (Metoprolol Succinate) 100 Mg Tab 100 Mg PO BID Synthroid (Levothyroxine Sodium) 100 Mcg Tab 100 Mcg PO DAILY Review of Systems Except as stated in HPI: all other systems reviewed are Neg Musculoskeletal: Positive: Arthralgias, Edema, Pain Skin: Positive Change in Pigmentation Physical Exam Narrative GENERAL: Well-nourished, well-developed patient. SKIN: Focused skin assessment warm/dry. HEAD: Normocephalic. EYES: No scleral icterus. No injection or drainage. NECK: Supple, trachea midline. No JVD or lymphadenopathy. CARDIOVASCULAR: Regular rate and rhythm without murmurs, gallops, or rubs. RESPIRATORY: Breath sounds equal bilaterally. No accessory muscle use. GASTROINTESTINAL: Abdomen soft, non-tender, nondistended. MUSCULOSKELETAL: No cyanosis, trace edema noted to the dorsal aspect of the right foot, mild faint ecchymosis noted to the dorsal aspect of the right foot. Positive pedal pulses, brisk is a 3 second capillary refill. Full range of motion toes of the right foot and right ankle. No obvious deformities noted. BACK: Nontender without obvious deformity. No CVA tenderness. Data Data Last Documented VS Vital Signs Date Time Temp Pulse Resp B/P Pulse Ox O2 Delivery O2 Flow Rate FiO2 07/30/16 01:06 99.1 97 16 138/82 97 Room Air Orders Foot, Limited (2vws) (07/30/16 ) Ketorolac Inj (Toradol Inj) (07/30/16 01:45) MDM Medical Decision Making Medical Screen Exam Complete: Yes Emergency Medical Condition: Yes Medical Record Reviewed: Yes Interpretation(s) Vital Signs Date Time Temp Pulse Resp B/P Pulse Ox O2 Delivery O2 Flow Rate FiO2 07/30/16 01:06 99.1 97 16 138/82 97 Room Air Differential Diagnosis Contusion versus stress fracture versus brain versus strain versus other Narrative Course Patient is a 21-year-old male presenting to the emergency department for the second time with the same complaint since July 21. We'll reimage patient's right foot to rule out stress fracture. Patient offered Toradol for pain. Repeat imaging shows no acute fracture. Patient was encouraged to rest, ice, elevate extremity. He was encouraged to take anti-inflammatory medication as needed and as directed for pain. He was encouraged to follow up with primary doctor or care transitions manager ongoing evaluation and management. He was advised to return to emergency department for any new or worsening symptoms. Patient verbalized understanding, he is stable for discharge. Diagnosis Primary Impression: Foot contusion Qualified Code: S90.31XD - Contusion of right foot, subsequent encounter Referrals: [facility] Primary Care Physician Patient Instructions: Foot Contusion (ED), General Instructions Additional Instructions: Rest, ice, elevate extremity Take medications as directed Follow-up with your primary doctor or your Workmen's Comp. physician as needed Return to emergency department for any new or worsening symptoms Med/Other Pt SpecificInfo: Prescription(s) given Scripts Ibuprofen 600 Mg Qsc624 Mg PO Q6H PRN (Pain/Inflammation) #40 TAB Ref 0 Prov:Karol Major 07/30/16 Disposition: 01 DISCHARGE HOME Condition: Stable Karol Major Jul 30, 2016 02:20
--- NOTE | 2016-07-30 03:05 | RADRPT ---
EXAM DATE/TIME: 07/30/2016 02:01 [facility] COMPARISON: No previous studies available for comparison. INDICATIONS : Dropped tire on foot 07/20. MEDICAL HISTORY : None. SURGICAL HISTORY : None. ENCOUNTER: Initial ACUITY: 1 week PAIN SCORE: 0/10 LOCATION: Right foot FINDINGS: Two view examination of the right foot demonstrates no soft tissue swelling, dislocation, or fracture . The calcaneus is intact. Bony mineralization is normal. CONCLUSION: Unremarkable limited examination of the right foot. Cristian Silvestre MD on July 30, 2016 at 3:03 Board Certified Radiologist. This report was verified electronically.
[2016-07-30] MEDS ORDERED: IBUP-232 PO (03:10)
== END 2016-07-30 03:22 | disposition home or self-care (01) ==
LOC: NEPD 01:03
DX: S90.31XA Contusion of right foot, initial encounter (principal); W20.8XXA Other cause of strike by thrown, projected or falling object, initial encounter
CPT/HCPCS: 73620; 96372; 99284; J1885

== ENCOUNTER 2016-09-10 21:39 | Emergency (ER) | payer OTHER ==
[~2016-09-10] VITALS: Ht 182.9 cm; Wt 88.5 kg
[~2016-09-10 21:39] MED LIST changes: +IBUP-232 PO
[2016-09-10 21:41] VITALS: BP 156/100; PULSE 106; RESP 20; TEMP 98.9; O2SAT 100
[2016-09-10 22:32] VITALS: BP 120/57; PULSE 87; RESP 17; O2SAT 100
[2016-09-10] MEDS ORDERED: IBUP800T23 PO (22:37)
[2016-09-10] MEDS ORDERED: NAPR500T PO (22:37)
--- NOTE | 2016-09-10 22:47 | PD ---
HPI Chief Complaint: Abdominal Pain Time Seen by Provider: 22:29 Travel History International Travel<30 days: No Contact w/Intl Traveler<30days: No Traveled to known affect area: No History of Present Illness HPI The patient is a 21 year old male who presents to the [facility] emergency department with a history of abdominal pain that he reports is been present since 9 to 10 AM this morning. He reports that the pain has been constant and gradually worsening with time. He reports that the pain is sharp in character. He reports that the only thing that seems to make the pain better is lying curled up on his side. He denies any effect with eating food. He reports that he last ate a turkey sandwich at 5 PM. He reports having nausea but no vomiting or diarrhea. He reports that his stool has been slightly loose over the last 2 days and green to black in color throughout that period of time. He denies any prior history of GI bleed. He does however report that he has been taking ibuprofen alternating with naproxen for his chronic back pain and recent head injury. He denies having any chest pain, chest pressure, or shortness of breath. He denies having any fevers or chills. He denies having any dysuria, hematuria, urinary urgency, or frequency. Otherwise on review of systems, the patient denies any cough, congestion, neck pain, or neurologic symptoms. [facility], [facility] Past Medical History Narrative Medical The patient's past medical history is significant for having a hypertrophic cardiomyopathy status post surgical treatment 2011, history of chronic back pain , history of allergies, history of hypothyroid disorder. Hx Anticoagulant Therapy: No Autoimmune Disease: No Heart Rhythm Problems: Yes Cancer: No Cardiomyopathy: Yes Cardiovascular Problems: Yes (hypertrophic cardiomyopathy, open heart surgery 2011) Chemotherapy: No Cerebrovascular Accident: No Coronary Artery Disease: Yes Diabetes: No Diminished Hearing: No Endocrine: Yes Gastrointestinal Disorders: Yes Genitourinary: No Immune Disorder: No Implanted Vascular Access Dvce: No Musculoskeletal: Yes (Receives steroid injections for back ) Neurologic: No Psychiatric: No Respiratory: No Immunizations Current: Yes Thyroid Disease: Yes (Hypothyroidism) Past Surgical History Narrative Surgical The patient's past surgical history is significant for a mitral valve myomectomy , subaortic resection, cholecystectomy, appendectomy. Appendectomy: Yes (05/09/06) Cardiac Surgery: Yes (Removal of extra muscle out of mitral wall ) Cholecystectomy: Yes (2017) Hysterectomy: No Thoracic Surgery: Yes (Heart transplant age 6) Valve Replacement: Yes (removal of extra muscle out of mitrial wall 2011) Other Surgery: Yes (Subaortic resection) Social History Alcohol Use: Yes ("Rarely") Tobacco Use: Yes ("Cigars rarely" ) Substance Use: No Allergies-Medications (Allergen,Severity, Reaction): Coded Allergies: Penicillin (Verified Allergy, Intermediate, Rash, 09/10/16) Sulfa (Verified Allergy, Intermediate, Rash, 09/10/16) Imitrex (Verified Adverse Reaction, Severe, SVT, 09/10/16) Reported Meds & Prescriptions Reported Meds & Active Scripts Active Reported Ibuprofen 800 Mg Tab 800 Mg PO Q8H PRN Naproxen 500 Mg Tab 500 Mg PO BID Singulair (Montelukast Sodium) 10 Mg Tab 10 Mg PO HS Metoprolol Succinate ER 24 HR (Metoprolol Succinate) 100 Mg Tab 100 Mg PO BID Synthroid (Levothyroxine Sodium) 100 Mcg Tab 100 Mcg PO DAILY Review of Systems Except as stated in HPI: all other systems reviewed are Neg General / Constitutional: No: Fever Eyes: No: Visual changes HENT: No: Headaches Cardiovascular: No: Chest Pain or Discomfort Respiratory: No: Shortness of Breath Gastrointestinal: Positive: Nausea, Abdominal Pain, Changes in Bowel Habits, Indigestion, No: Vomiting, Diarrhea, Hematemesis, Hematochezia, Loss of Appetite Genitourinary: No: Urgency, Frequency, Dysuria, Flank Pain Musculoskeletal: No: Pain Skin: No Rash Neurologic: No: Weakness Psychiatric: No: Depression Endocrine: No: Polydipsia Hematologic/Lymphatic: No: Easy Bruising Physical Exam Narrative General: The patient is a well-developed well-nourished male in no acute distress. Head and Neck exam: Head is normocephalic atraumatic. Eyes: EOMI, pupils are equal round and reactive to light. Nose: Midline septum with pink mucous membranes Mouth: Dentition unremarkable. Moist mucus membranes. Posterior oropharynx is not erythematous. No tonsillar hypertrophy. Uvula midline. Airway patent. Neck: No palpable lymphadenopathy. No nuchal rigidity. No thyromegaly. Cardiovascular: Regular rate and rhythm with a 1/6 systolic murmur. No gallops or rubs. Lungs: Clear to auscultation bilaterally. No wheezes, rhonchi, or rales. Abdomen: Soft, with tenderness on palpation of the midepigastric area and right upper quadrant of the abdomen, no other tenderness on palpation of the other quadrants. No guarding, rebound, or rigidity. Negative Laotto sign. Normal bowel sounds are audible. No tenderness on palpation of McBurney's point. Extremities: No clubbing, cyanosis, or edema. 2+ pulses in all 4 extremities. No calf tenderness on palpation. Back: No spinous process tenderness to palpation. No costovertebral angle tenderness to palpation. Neurologic Exam: Grossly nonfocal. Skin Exam: No rash noted. Intact skin that is warm and dry. RECTAL EXAM: No masses or tenderness, stool is brown. Stool is Hemoccult negative. Data Data Last Documented VS Vital Signs Date Time Temp Pulse Resp B/P Pulse Ox O2 Delivery O2 Flow Rate FiO2 09/10/16 22:32 87 17 120/57 100 09/10/16 21:41 98.9 Orders Complete Blood Count With Diff (09/10/16 22:38) Comprehensive Metabolic Panel (09/10/16 22:38) Prothrombin Time / Inr (Pt) (09/10/16 22:38) Act Partial Throm Time (Ptt) (09/10/16 22:38) C-Reactive Protein (Crp) (09/10/16 22:38) Lipase (09/10/16 22:38) Urinalysis - C+S If Indicated (09/10/16 22:38) Chest, Single Ap (09/10/16 22:38) Ct Abd/Pel W Iv Contrast(Rout) (09/10/16 22:38) Iv Access Insert/Monitor (09/10/16 22:38) Ecg Monitoring (09/10/16 22:38) Oximetry (09/10/16 22:38) Type And Screen (09/10/16 22:38) Sodium Chlor 0.9% 1000 Ml Inj (Ns 1000 M (09/10/16 23:00) Ondansetron Inj (Zofran Inj) (09/10/16 23:00) Morphine Inj (Morphine Inj) (09/10/16 23:00) Ketorolac Inj (Toradol Inj) (09/10/16 23:45) Iohexol 350 Inj (Omnipaque 350 Inj) (09/10/16 23:59) Pantoprazole Inj (Protonix Inj) (09/11/16 00:15) Labs Laboratory Tests Test 09/10/16 22:50 White Blood Count 5.8 TH/MM3 Red Blood Count 5.21 MIL/MM3 Hemoglobin 12.2 GM/DL Hematocrit 38.9 % Mean Corpuscular Volume 74.7 FL Mean Corpuscular Hemoglobin 23.4 PG Mean Corpuscular Hemoglobin 31.3 % Concent Red Cell Distribution Width 18.7 % Platelet Count 318 TH/MM3 Mean Platelet Volume 7.2 FL Neutrophils (%) (Auto) 50.8 % Lymphocytes (%) (Auto) 35.3 % Monocytes (%) (Auto) 9.7 % Eosinophils (%) (Auto) 3.5 % Basophils (%) (Auto) 0.7 % Neutrophils # (Auto) 3.0 TH/MM3 Lymphocytes # (Auto) 2.1 TH/MM3 Monocytes # (Auto) 0.6 TH/MM3 Eosinophils # (Auto) 0.2 TH/MM3 Basophils # (Auto) 0.0 TH/MM3 CBC Comment DIFF FINAL Differential Comment Prothrombin Time 10.4 SEC Prothromb Time International 0.9 RATIO Ratio Activated Partial 25.5 SEC Thromboplast Time Urine Color YELLOW Urine Turbidity CLEAR Urine pH 5.5 Urine Specific [place] 1.011 Urine Protein NEG mg/dL Urine Glucose (UA) NEG mg/dL Urine Ketones NEG mg/dL Urine Occult Blood NEG Urine Nitrite NEG Urine Bilirubin NEG Urine Urobilinogen LESS THAN 2.0 MG/DL Urine Leukocyte Esterase NEG Urine WBC LESS THAN 1 /hpf Urine Mucus FEW /lpf Microscopic Urinalysis Comment CULT NOT INDICATED Sodium Level 140 MEQ/L Potassium Level 3.8 MEQ/L Chloride Level 105 MEQ/L Carbon Dioxide Level 26.1 MEQ/L Anion Gap 9 MEQ/L Blood Urea Nitrogen 12 MG/DL Creatinine 1.14 MG/DL Estimat Glomerular Filtration 81 ML/MIN Rate Random Glucose 103 MG/DL Calcium Level 9.1 MG/DL Total Bilirubin 0.5 MG/DL Aspartate Amino Transf 22 U/L (AST/SGOT) Alanine Aminotransferase 34 U/L (ALT/SGPT) Alkaline Phosphatase 102 U/L C-Reactive Protein LESS THAN 0.29 MG/DL Total Protein 8.3 GM/DL Albumin 4.4 GM/DL Lipase 111 U/L Blood Type O POSITIVE Antibody Screen NEGATIVE Blood Bank Comment MDM Medical Decision Making Medical Screen Exam Complete: Yes Emergency Medical Condition: Yes Medical Record Reviewed: Yes Interpretation(s) Last Impressions Chest X-Ray 09/10/162237 Signed Impressions: Service Date/Time: Saturday, September 10, 2016 22:40 - CONCLUSION: No acute disease. No significant change has occurred. Kulwinder Gunn MD Differential Diagnosis Biliary obstruction, versus peptic ulcer disease, versus pyelonephritis, versus ureterolithiasis Narrative Course During the course of the patients emergency department visit, the patients history, examination, and differential diagnosis were reviewed with the patient. The patient had IV access obtained and blood work sent for analysis. The patient was placed on a solution advisor with oximetry and blood pressure monitoring. CT scan of the abdomen and pelvis was ordered. The patient was initially provided normal saline 1 L IV fluid bolus, morphine 4 mg IV for pain, Zofran 4 mg IV for nausea. The patient reports that his pain level had improved, however he did still have some discomfort and was given Toradol 15 mg IV after Hemoccult of the stools were negative. The patients laboratory studies were reviewed and remarkable for a white count of 5.8, hemoglobin 12.2, compared to previously this is improved from 10.4, hematocrit is 38.9, platelets 318 with 9.7 monocytes, CMP is remarkable for a GFR of 81, C-reactive protein is less than 0.29, total protein 8.3, lipase 111, PT 10.4, PTT 25.5, urinalysis is unremarkable. Radiology studies were reviewed and remarkable for a chest x-ray that shows no acute disease, no significant change from prior studies. CT scan of the abdomen and pelvis shows no acute abnormality. I had a lengthy discussion with the patient regarding his use of ibuprofen and Naprosyn. I recommended that he discontinue the anti-inflammatory pain medications I offered a prescription for an alternative pain medication as I'm concerned that this may be contributing to his abdominal pain. He reports that he has a long-standing history of acid reflux and heartburn and has been on Nexium for years. I recommended that he discontinue the Nexium and instead started on famotidine. The patient reports that he does not want a prescription for pain medication. He is requesting additional pain relief here. The patient was given tramadol by mouth. The patient is resting comfortably and feels better, is alert and in no distress. The patients results and examination findings were discussed with the patient. The repeat examination is unremarkable and benign. The history, exam, diagnostic testing, and current condition do not suggest any significant pathology to warrant further testing, continued ED treatment, admission, or surgical evaluation at this point. The vital signs have been stable. The patient does not have uncontrollable pain, intractable vomiting, or other significant symptoms. The patient's condition is stable and appropriate for discharge. The patient will pursue further outpatient evaluation with a primary care physician or other designated or consulting physician as indicated in the discharge instructions. The patient expressed understanding and was agreeable with this plan. [facility] Point of Care Internal Pos. & Neg. Controls: Passed Fecal Specimen Occult Blood: Negative Diagnosis Primary Impression: Abdominal pain Qualified Code: R10.13 - Epigastric pain Referrals: Primary Care Physician 3 days Patient Instructions: Abdominal Pain (ED), General Instructions Additional Instructions: Discontinue taking ibuprofen and Naprosyn together. Discontinue the Nexium that you were on and instead start the new prescription. Med/Other Pt SpecificInfo: Prescription(s) given Scripts Famotidine 20 Mg Tab20 Mg PO BID #60 TAB Ref 0 Prov:Yasmeen Oakley MD 09/11/16 Disposition: 01 DISCHARGE HOME Condition: Stable Yasmeen Oakley MD Sep 10, 2016 22:46
[2016-09-10] MEDS ORDERED: ONDANSETRON HCL 4 MG/2 ML VIAL IV ONE (23:00)
[2016-09-10] MEDS ORDERED: SODIUM CHLOR 0.9% 1000 ML INJ 1,000 ML IV ONE (23:00)
[2016-09-10] MEDS ORDERED: MORPHINE SULFATE 8 MG/ML INJ IV PUSH ONE (23:00)
[2016-09-10 23:18] LABS: BASOPHIL % 0.7 % (0.0-2.0); EOSINOPHIL # 0.2 TH/MM3 (0-0.4); EOSINOPHIL % 3.5 % (0.0-4.0); HEMATOCRIT 38.9 % (39.0-51.0); HEMO FLAGS DIFF FINAL; LYMPH % 35.3 % (9.0-44.0); LYMPHOCYTE # 2.1 TH/MM3 (1.0-4.8); MEAN CELL VOLUME 74.7 FL (80.0-100.0); MEAN CORPUSCULAR HEMOGLOBIN 23.4 PG (27.0-34.0); MEAN CORPUSCULAR HGB CONC 31.3 % (32.0-36.0); MONO % 9.7 % (0.0-8.0); NEUT % 50.8 % (16.0-70.0); PLATELET COUNT 318 TH/MM3 (150-450); RED BLOOD COUNT 5.21 MIL/MM3 (4.50-5.90); RED CELL DISTRIBUTION WIDTH 18.7 % (11.6-17.2); WHITE BLOOD COUNT 5.8 TH/MM3 (4.0-11.0)
--- NOTE | 2016-09-10 23:31 | RADRPT ---
EXAM DATE/TIME: 09/10/2016 22:40 [facility] COMPARISON: CHEST SINGLE AP, March 08, 2016, 8:26. INDICATIONS : Right lower chest, upper right abdomen pain. MEDICAL HISTORY : Subaortic resection. Coronary artery disease. SURGICAL HISTORY : Appendectomy. Cholecystectomy. ENCOUNTER: Subsequent ACUITY: 1 day PAIN SCORE: 7/10 LOCATION: Right lower chest FINDINGS: A single view of the chest demonstrates the lungs to be symmetrically aerated without evidence of mas s, infiltrate or effusion. The cardiomediastinal contours are unremarkable. There is evidence of pre vious cardiothoracic surgery. Osseous structures are intact. There is curvature of the thoracic spin e to the right. No significant changes. CONCLUSION: No acute disease. No significant change has occurred. Kulwinder Gunn MD on September 10, 2016 at 23:29 Board Certified Radiologist. This report was verified electronically.
[2016-09-10 23:35] LABS: APTT (PATIENT) 25.5 SEC (24.3-30.1); INTERNATIONAL NORMALIZED RATIO 0.9 RATIO; PROTHROMBIN TIME - PATIENT 10.4 SEC (9.8-11.6)
[2016-09-10 23:38] LABS: ALT (GPT) 34 U/L (12-78); ANION GAP 9 MEQ/L (5-15); AST (GOT) 22 U/L (15-37); BICARBONATE 26.1 MEQ/L (21.0-32.0); BLOOD UREA NITROGEN 12 MG/DL (7-18); CHLORIDE 105 MEQ/L (98-107); GLOMERULAR FILTRATION RATE 81 ML/MIN (>89); POTASSIUM 3.8 MEQ/L (3.5-5.1); SODIUM (NA) 140 MEQ/L (136-145)
[2016-09-10 23:40] LABS: ALKALINE PHOSPHATASE 102 U/L (45-117); TOTAL BILIRUBIN ADULT 0.5 MG/DL (0.2-1.0)
[2016-09-10 23:42] LABS: BLOOD, URINE NEG (NEG); COMMENT (UR) CULT NOT INDICATED; CULTURE IF INDICATED CULT NOT INDICATED; GLUCOSE,URINE NEG (NEG); KETONE, URINE NEG (NEG); MUCUS URINE FEW /lpf (OCC); NITRITE,URINE NEG (NEG); PH, URINE 5.5 (5.0-8.5); URINE COLOR YELLOW (YELLW/STRAW)
[2016-09-10] MEDS ORDERED: KETOROLAC TROMETHAMINE 30 MG/ML (IVP) VIAL IV PUSH ONE (23:45)
[2016-09-10] MEDS ORDERED: IOHEXOL 350 MG/ML 10 ML VIAL (for RAD DIAG) IV ONE (23:59)
--- NOTE | 2016-09-11 00:09 | RADRPT ---
EXAM DATE/TIME: 09/10/2016 23:47 [facility] COMPARISON: CT ABDOMEN & PELVIS W CONTRAST, May 13, 2016, 22:41. INDICATIONS : Epigastric abdominal pain with discolored stool. IV CONTRAST: 92 cc Omnipaque 350 (iohexol) IV ORAL CONTRAST: No oral contrast ingested. RADIATION DOSE: 14.48 CTDIvol (mGy) MEDICAL HISTORY : Coronary artery disease. SURGICAL HISTORY : Appendectomy. Cholecystectomy.CABGHeart transplant as child. ENCOUNTER: Initial ACUITY: 1 day PAIN SCALE: 7/10 LOCATION: abdomen TECHNIQUE: Volumetric scanning of the abdomen and pelvis was performed. Using automated exposure control and ad justment of the mA and/or kV according to patient size, radiation dose was kept as low as reasonably achievable to obtain optimal diagnostic quality images. DICOM format image data is available electro nically for review and comparison. FINDINGS: LOWER LUNGS: The visualized lower lungs are clear. LIVER: Homogeneous density without lesion. There is no dilation of the biliary tree. No gallbladder, surgi heaven removed.. SPLEEN: Normal size without lesion. PANCREAS: Within normal limits. KIDNEYS: Normal in size and shape. There is no mass, stone or hydronephrosis. ADRENAL GLANDS: Within normal limits. VASCULAR: There is no aortic aneurysm. BOWEL/MESENTERY: The stomach, small bowel, and colon demonstrate no acute abnormality. There is no free intraperitone al air or fluid. There is stool throughout the colon. No inflammatory changes. ABDOMINAL WALL: Within normal limits. RETROPERITONEUM: There is no lymphadenopathy. BLADDER: No wall thickening or mass. REPRODUCTIVE: Within normal limits. INGUINAL: There is no lymphadenopathy or hernia. MUSCULOSKELETAL: Within normal limits for patient age. Curvature of the lumbar spine to the left. No significant change compared to prior exam. CONCLUSION: 1. Unremarkable and stable CT scan of the abdomen/pelvis compared to the prior examination. 2. No acute pathology. Kulwinder Gunn MD on September 11, 2016 at 0:05 Board Certified Radiologist. This report was verified electronically.
[2016-09-11] MEDS ORDERED: PANTOPRAZOLE SODIUM 40 MG VIAL IV PUSH ONE (00:15)
[2016-09-11] MEDS ORDERED: FAMO20TA2 PO (00:18)
[2016-09-11] MEDS ORDERED: traMADol HCL 50 MG TAB PO ONE (00:30)
[2016-09-11] MEDS ORDERED: PROCHLORPERAZINE INJ 10 MG/2 ML VIAL IV PUSH ONE (00:30)
== END 2016-09-11 01:26 | disposition home or self-care (01) ==
LOC: NEPC 21:39
DX: R10.13 Epigastric pain (principal); R11.0 Nausea; E03.9 Hypothyroidism, unspecified; Z72.0 Tobacco use; Z86.79 Personal history of other diseases of the circulatory system; Z87.39 Personal history of other diseases of the musculoskeletal system and connective tissue; Z87.19 Personal history of other diseases of the digestive system
CPT/HCPCS: 71010; 74177; 80053; 81001; 83690; 85025; 85610; 85730; 86140; 86850; 86900; 86901; 96374; 96375; 99285; C9113; J0780; J1885; J2270; J2405; J7030; Q9967

== ENCOUNTER 2016-10-01 21:51 | Emergency (ER) | payer OTHER ==
[~2016-10-01] VITALS: Ht 177.8 cm; Wt 95.0 kg
[~2016-10-01 21:51] MED LIST changes: -DICL75TA PO; +FAMO20TA2 PO; -IBUP-232 PO; +IBUP800T23 PO; +NAPR500T PO
[2016-10-01 22:00] VITALS: BP 136/86; PULSE 78; RESP 20; TEMP 98.6; O2SAT 98
[2016-10-01] MEDS ORDERED: ACETAMINOPHEN 500 MG CPLT PO ONE (22:15)
[2016-10-01] MEDS ORDERED: SODIUM CHLORIDE 0.9% FLUSH 10 ML FLUSH IVF PRN (22:15)
--- NOTE | 2016-10-01 22:21 | PD ---
HPI Chief Complaint: Chest Pain Time Seen by Provider: 21:59 Travel History International Travel<30 days: No Contact w/Intl Traveler<30days: No History of Present Illness HPI This is a 21-year-old male who has a history of hypertrophic cardiomyopathy having had a subaortic resection and a mitral wall resection in the past who presents to the emergency department having had some chest discomfort earlier today and then subsequently having severe back pain in the middle of his scapular blades, constant, feeling like a stabbing pain. He says he has never had pain like this before. He denies any drug use. Currently he says his pain is 10/10 and he took Tylenol and naproxen prior to arrival. PFSH Past Medical History Hx Anticoagulant Therapy: No Autoimmune Disease: No Heart Rhythm Problems: Yes Cancer: No Cardiomyopathy: Yes Cardiovascular Problems: Yes (hypertrophic cardiomyopathy, open heart surgery 2011) Chemotherapy: No Cerebrovascular Accident: No Coronary Artery Disease: Yes Diabetes: No Diminished Hearing: No Endocrine: Yes Gastrointestinal Disorders: Yes Genitourinary: No Immune Disorder: No Implanted Vascular Access Dvce: No Musculoskeletal: Yes (Receives steroid injections for back ) Neurologic: No Psychiatric: No Respiratory: No Immunizations Current: Yes Thyroid Disease: Yes (Hypothyroidism) Past Surgical History Appendectomy: Yes (05/09/06) Cardiac Surgery: Yes (Removal of extra muscle out of mitral wall ) Cholecystectomy: Yes (2016) Hysterectomy: No Thoracic Surgery: Yes (Heart transplant age 6) Valve Replacement: Yes (removal of extra muscle out of mitrial wall 2011) Other Surgery: Yes (Subaortic resection) Social History Alcohol Use: Yes ("Rarely") Tobacco Use: Yes ("Cigars rarely" ) Substance Use: No Allergies-Medications (Allergen,Severity, Reaction): Coded Allergies: Penicillin (Verified Allergy, Intermediate, Rash, 10/01/16) Sulfa (Verified Allergy, Intermediate, Rash, 10/01/16) Imitrex (Verified Adverse Reaction, Severe, SVT, 10/01/16) Reported Meds & Prescriptions Reported Meds & Active Scripts Active Reported Ibuprofen 800 Mg Tab 800 Mg PO Q8H PRN Naproxen 500 Mg Tab 500 Mg PO BID Singulair (Montelukast Sodium) 10 Mg Tab 10 Mg PO HS Metoprolol Succinate ER 24 HR (Metoprolol Succinate) 100 Mg Tab 100 Mg PO BID Synthroid (Levothyroxine Sodium) 100 Mcg Tab 100 Mcg PO DAILY Review of Systems Except as stated in HPI: all other systems reviewed are Neg Physical Exam Narrative GENERAL:Uncomfortable appearing, yelling in pain SKIN: Focused skin assessment warm and dry. HEAD: Atraumatic. Normocephalic. EYES: Pupils equal and round. No injection or drainage. ENT: Moist mucous membranes NECK: Trachea midline. CARDIOVASCULAR: Regular rate and rhythm. No murmur appreciated. RESPIRATORY: Clear to auscultation. Breath sounds equal bilaterally. GASTROINTESTINAL: Abdomen soft, non-tender, nondistended. MUSCULOSKELETAL: No obvious deformities. NEUROLOGICAL: Awake and alert. No obvious cranial nerve deficits. Moving all extremities. PSYCHIATRIC: Appropriate mood and affect; insight and judgment normal. Data Data Last Documented VS Vital Signs Date Time Temp Pulse Resp B/P Pulse Ox O2 Delivery O2 Flow Rate FiO2 10/01/16 23:11 18 10/01/16 23:06 68 130/80 99 Room Air 10/01/16 22:00 98.6 Orders Electrocardiogram (10/01/16 22:04) Complete Blood Count With Diff (10/01/16 22:04) Comprehensive Metabolic Panel (10/01/16 22:04) Troponin I (10/01/16 22:04) Ecg Monitoring (10/01/16 22:04) Bilateral Bp Monitoring (10/01/16 22:04) Iv Access Insert/Monitor (10/01/16 22:04) Oximetry (10/01/16 22:04) Oxygen Administration (10/01/16 22:04) Sodium Chloride 0.9% Flush (Ns Flush) (10/01/16 22:15) Cta Thor Abd Aorta W Iv C W3d (10/01/16 22:04) Acetaminophen (Tylenol) (10/01/16 22:15) Ed Poc Ultrasound (10/01/16 ) Labs Laboratory Tests Test 10/01/16 22:55 White Blood Count 6.6 TH/MM3 Red Blood Count 4.60 MIL/MM3 Hemoglobin 10.6 GM/DL Hematocrit 34.6 % Mean Corpuscular Volume 75.1 FL Mean Corpuscular Hemoglobin 23.0 PG Mean Corpuscular Hemoglobin 30.6 % Concent Red Cell Distribution Width 17.2 % Platelet Count 312 TH/MM3 Mean Platelet Volume 7.4 FL Neutrophils (%) (Auto) 57.0 % Lymphocytes (%) (Auto) 31.0 % Monocytes (%) (Auto) 7.9 % Eosinophils (%) (Auto) 3.8 % Basophils (%) (Auto) 0.3 % Neutrophils # (Auto) 3.8 TH/MM3 Lymphocytes # (Auto) 2.0 TH/MM3 Monocytes # (Auto) 0.5 TH/MM3 Eosinophils # (Auto) 0.3 TH/MM3 Basophils # (Auto) 0.0 TH/MM3 CBC Comment AUTO DIFF Sodium Level 139 MEQ/L Potassium Level 3.8 MEQ/L Chloride Level 106 MEQ/L Carbon Dioxide Level 25.6 MEQ/L Anion Gap 7 MEQ/L Blood Urea Nitrogen 16 MG/DL Creatinine 1.00 MG/DL Estimat Glomerular Filtration 94 ML/MIN Rate Random Glucose 84 MG/DL Calcium Level 9.1 MG/DL Aspartate Amino Transf 14 U/L (AST/SGOT) Alanine Aminotransferase 29 U/L (ALT/SGPT) Albumin 4.2 GM/DL MDM Medical Decision Making Medical Screen Exam Complete: Yes Emergency Medical Condition: Yes Interpretation(s) Afebrile, no tachycardia, normotensive EKG: Normal sinus rhythm, left bundle branch block similar to EKG from 11/13/15 Differential Diagnosis Aortic dissection, musculoskeletal back pain, drug-seeking behavior, opiate dependence Narrative Course This is a 21-year-old male who presents to the emergency department reporting back pain that was preceded by chest pain. He does have a history of hypertrophic cardiomyopathy and subaortic resection. An IV was established and is placed on a monitor. EKG is similar to prior. CTA will be obtained to evaluate for aortic dissection given the nature of the patient's pain. The patient has multiple red flags for drug-seeking behavior. He repeatedly asked for pain medication that is stronger than Tylenol and ibuprofen. He has filled 54 controlled substance prescriptions from 18 different providers in the past year. He has multiple ER related visits for pain related complaints. When looking back in of the patient's chart is seems like he has a very unfortunate history. If you look back in 2006 the patient had an admission as a child for leg pain and Dr. Patel noted that at that time he had an entrapped nerve during an appendectomy and was intermittently on Vicodin. This patient's opiate dependence likely started in childhood and continued when he had his cardiothoracic surgery. Over the past year the patient has had his gallbladder out in the setting of limited objective findings, has had an exploratory hand surgery with no culture growth and is currently being followed by orthopedics receiving opiates for a foot injury. I don't think this patient would benefit from any additional opiates prescribed here in the emergency department. If we rule out aortic dissection I think the patient can safely be discharged home. Diagnosis Primary Impression: Opiate dependence, continuous Additional Impression: Back pain Qualified Code: M54.6 - Acute midline thoracic back pain Patient Instructions: General Instructions Med/Other Pt SpecificInfo: Prescription(s) given Scripts Methylprednisolone Dosepak (Medrol Dosepak)4 Mg Dspk4 Mg PO DIRECTED #1 DSPK Ref 0 Per Pharmacist direction Prov:Анна Ansari MD 10/01/16 Disposition: 01 DISCHARGE HOME Condition: Stable Анна Ansari MD Oct 01, 2016 22:21
[2016-10-01 23:06] VITALS: BP_SYST 122; BP_SYST 130; BP_DIAS 68; BP_DIAS 80; PULSE 68; RESP 18; O2SAT 99
[2016-10-01 23:10] LABS: AUTOMATED NEUTROPHIL # 3.8 TH/MM3 (1.8-7.7); BASOPHIL % 0.3 % (0.0-2.0); EOSINOPHIL # 0.3 TH/MM3 (0-0.4); EOSINOPHIL % 3.8 % (0.0-4.0); HEMATOCRIT 34.6 % (39.0-51.0); MEAN CELL VOLUME 75.1 FL (80.0-100.0); MEAN CORPUSCULAR HGB CONC 30.6 % (32.0-36.0); MONO % 7.9 % (0.0-8.0); PLATELET COUNT 312 TH/MM3 (150-450); RED CELL DISTRIBUTION WIDTH 17.2 % (11.6-17.2); WHITE BLOOD COUNT 6.6 TH/MM3 (4.0-11.0)
[2016-10-01 23:12] LABS: HEMO FLAGS AUTO DIFF
[2016-10-01 23:20] LABS: CHLORIDE 106 MEQ/L (98-107); POTASSIUM 3.8 MEQ/L (3.5-5.1); SODIUM (NA) 139 MEQ/L (136-145)
[2016-10-01 23:23] LABS: ANION GAP 7 MEQ/L (5-15); BICARBONATE 25.6 MEQ/L (21.0-32.0)
[2016-10-01 23:24] LABS: BLOOD UREA NITROGEN 16 MG/DL (7-18)
[2016-10-01 23:27] LABS: ALT (GPT) 29 U/L (12-78); AST (GOT) 14 U/L (15-37); GLOMERULAR FILTRATION RATE 94 ML/MIN (>89)
[2016-10-01 23:28] LABS: TOTAL BILIRUBIN ADULT 0.4 MG/DL (0.2-1.0)
[2016-10-01 23:29] LABS: ALKALINE PHOSPHATASE 76 U/L (45-117)
[2016-10-01] MEDS ORDERED: MEDR4PAK PO (23:33)
[2016-10-01] MEDS ORDERED: IOHEXOL 350 MG/ML 10 ML VIAL (for RAD DIAG) IV ONE (23:50)
[2016-10-01 23:51] LABS: PLATELET ESTIMATE SMEAR NORMAL (NORMAL); PLATELET MORPHOLOGY NORMAL (NORMAL); SCAN/DIFF AUTO DIFF CONFIRMED; STOMATOCYTES 1+ (NORMAL)
[2016-10-02] MEDS ORDERED: KETOROLAC TROMETHAMINE 30 MG/ML (IVP) VIAL IV PUSH ONE
[2016-10-02 00:29] VITALS: BP 133/66; PULSE 71; RESP 16; O2SAT 100
--- NOTE | 2016-10-02 00:31 | RADRPT ---
EXAM DATE/TIME: 10/01/2016 23:53 [facility] COMPARISON: No previous studies available for comparison. INDICATIONS : Evaluate for aortic dissection. Chest and back pain. IV CONTRAST: 100 cc Omnipaque 350 (iohexol) IV RADIATION DOSE: 22.21 CTDIvol (mGy) MEDICAL HISTORY : Cardiovascular disease. SURGICAL HISTORY : Appendectomy. Cholecystectomy.CABGHeart transplant ENCOUNTER: Initial ACUITY: 1 day PAIN SCALE: 7/10 LOCATION: Bilateral chest back TECHNIQUE: Volumetric scanning was performed using a multi-row detector CT scanner. The data was post processed with a variety of visualization algorithms including full volume maximum intensity projection, multi -planar sliding thin slab reformation, curved planar reformation, and surface rendering techniques. Using automated exposure control and adjustment of the mA and/or kV according to patient size, radiat ion dose was kept as low as reasonably achievable to obtain optimal diagnostic quality images. DICOM format image data is available electronically for review and comparison. FINDINGS: LUNGS: There is no consolidation or pneumothorax. No concerning pulmonary nodule is visualized. No pleural fluid is present. MEDIASTINUM: No abnormally enlarged lymph nodes by CT criteria. No axillary or hilar abnormalities are identified. There is surgical clips in the mediastinum the patient has had previous median sternotomy. ABDOMEN: The liver and spleen are free of focal defects. The gallbladder and pancreas demonstrate no abnormali ty. The adrenal glands are normal. The kidneys demonstrate no evidence of solid renal mass or hydrone phrosis. No free fluid or abdominal masses are identified. No para-aortic adenopathy is seen. PELVIS: No evidence of free fluid or pelvic mass. No abnormally enlarged inguinal or retroperitoneal lymph no dena are present. The bladder is unremarkable. THORACIC AORTA: The thoracic aortic root is normal with normal branching of the great vessels. There is no evidence of aneurysm or dissection. ABDOMINAL AORTA: The aorta is normal in caliber without aneurysm or dissection. The renal arteries are patent bilater ally. The proximal celiac and superior mesenteric arteries are patent and normal in diameter. PELVIC VESSELS: The internal iliac and external iliac vessels are patent without aneurysm or stenosis. CONCLUSION: 1. No evidence for aortic dissection. 2. Gynecomastia. Sarkis Brewster MD on October 02, 2016 at 0:28 Board Certified Radiologist. This report was verified electronically.
--- NOTE | 2016-10-02 00:39 | PD ---
Physical Exam Date Seen by Provider: Oct 02, 2016 Time Seen by Provider: 00:20 Narrative accepted in transfer of care from Dr Ansari Data Data Last Documented VS Vital Signs Date Time Temp Pulse Resp B/P Pulse Ox O2 Delivery O2 Flow Rate FiO2 10/02/16 00:29 71 16 133/66 100 Room Air 10/01/16 22:00 98.6 Orders Electrocardiogram (10/01/16 22:04) Complete Blood Count With Diff (10/01/16 22:04) Comprehensive Metabolic Panel (10/01/16 22:04) Troponin I (10/01/16 22:04) Ecg Monitoring (10/01/16 22:04) Bilateral Bp Monitoring (10/01/16 22:04) Iv Access Insert/Monitor (10/01/16 22:04) Oximetry (10/01/16 22:04) Oxygen Administration (10/01/16 22:04) Sodium Chloride 0.9% Flush (Ns Flush) (10/01/16 22:15) Cta Thor Abd Aorta W Iv C W3d (10/01/16 22:04) Acetaminophen (Tylenol) (10/01/16 22:15) Ed Poc Ultrasound (10/01/16 ) Ketorolac Inj (Toradol Inj) (10/02/16 00:00) Iohexol 350 Inj (Omnipaque 350 Inj) (10/01/16 23:50) Labs Laboratory Tests Test 10/01/16 22:55 White Blood Count 6.6 TH/MM3 Red Blood Count 4.60 MIL/MM3 Hemoglobin 10.6 GM/DL Hematocrit 34.6 % Mean Corpuscular Volume 75.1 FL Mean Corpuscular Hemoglobin 23.0 PG Mean Corpuscular Hemoglobin 30.6 % Concent Red Cell Distribution Width 17.2 % Platelet Count 312 TH/MM3 Mean Platelet Volume 7.4 FL Neutrophils (%) (Auto) 57.0 % Lymphocytes (%) (Auto) 31.0 % Monocytes (%) (Auto) 7.9 % Eosinophils (%) (Auto) 3.8 % Basophils (%) (Auto) 0.3 % Neutrophils # (Auto) 3.8 TH/MM3 Lymphocytes # (Auto) 2.0 TH/MM3 Monocytes # (Auto) 0.5 TH/MM3 Eosinophils # (Auto) 0.3 TH/MM3 Basophils # (Auto) 0.0 TH/MM3 CBC Comment AUTO DIFF Differential Comment AUTO DIFF CONFIRMED Platelet Estimate NORMAL Platelet Morphology Comment NORMAL Stomatocytes 1+ Sodium Level 139 MEQ/L Potassium Level 3.8 MEQ/L Chloride Level 106 MEQ/L Carbon Dioxide Level 25.6 MEQ/L Anion Gap 7 MEQ/L Blood Urea Nitrogen 16 MG/DL Creatinine 1.00 MG/DL Estimat Glomerular Filtration 94 ML/MIN Rate Random Glucose 84 MG/DL Calcium Level 9.1 MG/DL Total Bilirubin 0.4 MG/DL Aspartate Amino Transf 14 U/L (AST/SGOT) Alanine Aminotransferase 29 U/L (ALT/SGPT) Alkaline Phosphatase 76 U/L Troponin I LESS THAN 0.02 NG/ML Total Protein 7.4 GM/DL Albumin 4.2 GM/DL [facility] Medical Record Reviewed: Yes Supervised Visit with ARLEN: No Interpretation(s) CTA thoracic/abdominal aorta: Per reading radiologist no evidence for aortic dissection Differential Diagnosis accepted in transfer of care from Dr Ansari; please refer to her dictation Narrative Course accepted in transfer of care from Dr Ansari; for follow up on CTA; plan to D/C home with medrol dosepack if normal study CTA reveals no acute abnormality; patient is informed of imaging results and stable for outpatient management; patient given Toradol 30 mg IV times one dose Diagnosis Primary Impression: Opiate dependence, continuous Additional Impression: Back pain Qualified Code: M54.6 - Acute midline thoracic back pain Referrals: Primary Care Physician call for appointment Patient Instructions: General Instructions Additional Instruction: Follow-up with primary care provider Return to the emergency department for a concerns Complete course of steroid as prescribed Med/Other Pt SpecificInfo: Prescription(s) given Scripts Methylprednisolone Dosepak (Medrol Dosepak)4 Mg Dspk4 Mg PO DIRECTED #1 DSPK Ref 0 Per Pharmacist direction Prov:Анна Ansari MD 10/01/16 Disposition: 01 DISCHARGE HOME Condition: Stable Debra Jon MD Oct 02, 2016 00:39
[2016-10-02 00:54] VITALS: BP 131/65
--- NOTE | 2016-10-02 15:37 | EKG ---
Date Performed: 10/01/2016 Time Performed: 21:58:11 PTAGE: 21 years EKG: Sinus rhythm WITH SINUS ARRHYTHMIA LEFT BUNDLE BRANCH BLOCK ABNORMAL ECG PREVIOUS TRACING : 11/13/2015 23.18 DOCTOR: Krista Sutton Interpretating Date/Time 10/02/2016 15:34:42
== END 2016-10-02 01:11 | disposition home or self-care (01) ==
LOC: PHED 21:51
DX: F11.20 Opioid dependence, uncomplicated (principal); M54.6 Pain in thoracic spine
CPT/HCPCS: 71275; 74174; 80053; 84484; 85025; 93005; 96374; 99285; J1885; Q9967

== ENCOUNTER 2016-11-21 21:35 | Emergency (ER) | payer OTHER ==
[~2016-11-21] VITALS: Ht 182.9 cm; Wt 90.0 kg
[~2016-11-21 21:35] MED LIST changes: -FAMO20TA2 PO; +MEDR4PAK PO
[2016-11-21] MEDS ORDERED: IOHEXOL 350 MG/ML 10 ML VIAL (for RAD DIAG) IVCONTRAST ONE (21:36)
[2016-11-21 21:37] VITALS: BP 135/78; PULSE 77; RESP 16; TEMP 98.9; O2SAT 100
--- NOTE | 2016-11-21 22:56 | PD ---
HPI Chief Complaint: Back/ Neck Pain or Injury Time Seen by Provider: 22:42 Travel History International Travel<30 days: No Contact w/Intl Traveler<30days: No Traveled to known affect area: No History of Present Illness HPI 21-year-old male patient presents to [facility] for evaluation left-sided abdominal, flank pain. Patient states this started this morning when he woke up. He states the pain is gotten to the point where he has vomited once. He states it is sharp stabbing, pain, exacerbated with movement. Radiates to his abdomen. Patient denies fever or chills. No history of injury. Normal bowel movements and voids. He has no chest pain or tightness. He has no other symptoms to report. PFSH Past Medical History Hx Anticoagulant Therapy: No Autoimmune Disease: No Heart Rhythm Problems: Yes Cancer: No Cardiomyopathy: Yes Cardiovascular Problems: Yes (hypertrophic cardiomyopathy, open heart surgery 2011) Chemotherapy: No Cerebrovascular Accident: No Coronary Artery Disease: Yes Diabetes: No Diminished Hearing: No Endocrine: Yes Gastrointestinal Disorders: Yes Genitourinary: No Immune Disorder: No Implanted Vascular Access Dvce: No Musculoskeletal: Yes (Receives steroid injections for back ) Neurologic: No Psychiatric: No Respiratory: No Immunizations Current: Yes Thyroid Disease: Yes (Hypothyroidism) Influenza Vaccination: Yes Past Surgical History Appendectomy: Yes (05/09/06) Cardiac Surgery: Yes (Removal of extra muscle out of mitral wall ) Cholecystectomy: Yes (2016) Hysterectomy: No Thoracic Surgery: Yes (Heart transplant age 6) Valve Replacement: Yes (removal of extra muscle out of mitrial wall 2011) Other Surgery: Yes (Subaortic resection) Social History Alcohol Use: Yes ("Rarely") Tobacco Use: Yes ("Cigars rarely" ) Substance Use: No Allergies-Medications (Allergen,Severity, Reaction): Coded Allergies: tramadol (Verified Allergy, Severe, 11/21/16) Sulfa (Sulfonamide Antibiotics) (Unverified Allergy, Intermediate, Rash, ) penicillin G (Unverified Allergy, Intermediate, Rash, 11/21/16) sumatriptan (Unverified Adverse Reaction, Severe, SVT, 11/21/16) Reported Meds & Prescriptions Reported Meds & Active Scripts Active Ibuprofen 800 Mg Tab 800 Mg PO Q8H PRN Lortab (Hydrocodone-Acetaminophen) 5-325 Mg Tab 1 Tab PO Q6H PRN Reported Singulair (Montelukast Sodium) 10 Mg Tab 10 Mg PO HS Metoprolol Succinate ER 24 HR (Metoprolol Succinate) 100 Mg Tab 100 Mg PO BID Synthroid (Levothyroxine Sodium) 100 Mcg Tab 100 Mcg PO DAILY Review of Systems Except as stated in HPI: all other systems reviewed are Neg Physical Exam Narrative GENERAL: Well-nourished male patient, lying flat on his back in the stretcher in no acute distress. SKIN: Focused skin assessment warm/dry. HEAD: Atraumatic. Normocephalic. EYES: Pupils equal and round. No scleral icterus. No injection or drainage. ENT: No nasal bleeding or discharge. Mucous membranes pink and moist. NECK: Trachea midline. No JVD. CARDIOVASCULAR: Regular rate and rhythm. No murmur appreciated. RESPIRATORY: No accessory muscle use. Clear to auscultation. Breath sounds equal bilaterally. GASTROINTESTINAL: Abdomen soft, nondistended. Left upper and lower quadrant tenderness to palpation. Left flank tenderness to palpation.. Hepatic and splenic margins not palpable. MUSCULOSKELETAL: No obvious deformities. No clubbing. No cyanosis. No edema. No hyperreflexia. No clonus. Negative straight leg. NEUROLOGICAL: Awake and alert. No obvious cranial nerve deficits. Motor grossly within normal limits. Normal speech. 5 posterior thecal bilateral extremities. PSYCHIATRIC: Appropriate mood and affect; insight and judgment normal. Data Data Last Documented VS Vital Signs Date Time Temp Pulse Resp B/P (MAP) Pulse Ox O2 Delivery O2 Flow Rate FiO2 11/21/16 21:37 98.9 77 16 135/78 (97) 100 Room Air Orders Orders Iv Access Insert/Monitor (11/21/16 22:54) Urinalysis - C+S If Indicated (11/21/16 22:54) Complete Blood Count With Diff (11/21/16 22:54) Basic Metabolic Panel (Bmp) (11/21/16 22:54) Ketorolac Inj (Toradol Inj) (11/21/16 23:00) Sodium Chlor 0.9% 1000 Ml Inj (Ns 1000 M (11/21/16 23:00) Ct Abd/Pel W Iv Contrast(Rout) (11/21/16 ) Iohexol 350 Inj (Omnipaque 350 Inj) (11/21/16 21:36) Morphine Inj (Morphine Inj) (11/22/16 00:30) Ondansetron Inj (Zofran Inj) (11/22/16 00:30) Labs Laboratory Tests Test 11/21/16 23:17 11/21/16 23:29 White Blood Count 5.3 TH/MM3 Red Blood Count 4.44 MIL/MM3 Hemoglobin 10.4 GM/DL Hematocrit 33.3 % Mean Corpuscular Volume 74.8 FL Mean Corpuscular Hemoglobin 23.5 PG Mean Corpuscular Hemoglobin Concent 31.3 % Red Cell Distribution Width 17.1 % Platelet Count 259 TH/MM3 Mean Platelet Volume 7.5 FL Neutrophils (%) (Auto) 53.6 % Lymphocytes (%) (Auto) 29.5 % Monocytes (%) (Auto) 13.6 % Eosinophils (%) (Auto) 2.7 % Basophils (%) (Auto) 0.6 % Neutrophils # (Auto) 2.9 TH/MM3 Lymphocytes # (Auto) 1.6 TH/MM3 Monocytes # (Auto) 0.7 TH/MM3 Eosinophils # (Auto) 0.1 TH/MM3 Basophils # (Auto) 0.0 TH/MM3 CBC Comment DIFF FINAL Differential Comment Blood Urea Nitrogen 16 MG/DL Creatinine 1.23 MG/DL Random Glucose 92 MG/DL Calcium Level 8.9 MG/DL Sodium Level 138 MEQ/L Potassium Level 3.5 MEQ/L Chloride Level 102 MEQ/L Carbon Dioxide Level 29.2 MEQ/L Anion Gap 7 MEQ/L Estimat Glomerular Filtration Rate 74 ML/MIN Urine Color LIGHT-YELLOW Urine Turbidity CLEAR Urine pH 6.0 Urine Specific Ramah 1.012 Urine Protein NEG mg/dL Urine Glucose (UA) NEG mg/dL Urine Ketones NEG mg/dL Urine Occult Blood NEG Urine Nitrite NEG Urine Bilirubin NEG Urine Urobilinogen LESS THAN 2.0 MG/DL Urine Leukocyte Esterase NEG Urine WBC LESS THAN 1 /hpf Urine Mucus FEW /lpf Microscopic Urinalysis Comment CULT NOT INDICATED MDM Medical Decision Making Medical Screen Exam Complete: Yes Emergency Medical Condition: Yes Medical Record Reviewed: Yes Differential Diagnosis Pancreatitis versus visceral pain versus colitis versus muscle strain versus spasm Narrative Course 21-year-old male presents to emergency department for evaluation of left-sided flank, abdominal pain. Patient appears without distress. He is lying flat on the stretcher and not moving because he states this helps his pain. Patient is given nonnarcotic pain control. Lab work is obtained. CT imaging of the abdomen and pelvis is ordered despite ACT 2 months ago that was without acute abnormality. Lab work is without acute concern. CT imaging does not demonstrate any etiology for the patient's pain. Patient is requesting additional pain control. He is given this. My attending physician has also assessed him. He'll be given pain control outpatient. He agrees to return immediately with any acute worsening symptoms. Diagnosis Primary Impression: Abdominal pain of unknown etiology Referrals: [employer] Primary Care Physician Patient Instructions: Abdominal Pain (ED), General Instructions Departure Forms: Tests/Procedures, Work Release Enter return to work date: Nov 23, 2016 Additional Instructions: Follow up with a primary care provider Return to ED with acute worsening of symptoms Med/Other Pt SpecificInfo: Prescription(s) given Scripts Ibuprofen (Ibuprofen) 800 Mg Tab 800 MG PO Q8H Y for Pain/Inflammation, #30 TAB 0 Refills Prov: Kira Eldridge 11/22/16 Hydrocodone-Acetaminophen (Lortab) 5-325 Mg Tab 1 TAB PO Q6H Y for PAIN GREATER THAN 6, #6 TAB 0 Refills Prov: Kira Eldridge 11/22/16 Disposition: 01 DISCHARGE HOME Condition: Stable Kira Eldridge Nov 21, 2016 22:56
[2016-11-21] MEDS ORDERED: KETOROLAC TROMETHAMINE 30 MG/ML (IVP) VIAL IV PUSH ONE (23:00)
[2016-11-21] MEDS ORDERED: SODIUM CHLOR 0.9% 1000 ML INJ 1,000 ML IV ONE (23:00)
[2016-11-21 23:25] LABS: AUTOMATED NEUTROPHIL # 2.9 TH/MM3 (1.8-7.7); BASOPHIL % 0.6 % (0.0-2.0); EOSINOPHIL # 0.1 TH/MM3 (0-0.4); EOSINOPHIL % 2.7 % (0.0-4.0); HEMATOCRIT 33.3 % (39.0-51.0); HEMO FLAGS DIFF FINAL; LYMPH % 29.5 % (9.0-44.0); LYMPHOCYTE # 1.6 TH/MM3 (1.0-4.8); MEAN CELL VOLUME 74.8 FL (80.0-100.0); MEAN CORPUSCULAR HEMOGLOBIN 23.5 PG (27.0-34.0); MEAN CORPUSCULAR HGB CONC 31.3 % (32.0-36.0); MONO % 13.6 % (0.0-8.0); NEUT % 53.6 % (16.0-70.0); PLATELET COUNT 259 TH/MM3 (150-450); RED BLOOD COUNT 4.44 MIL/MM3 (4.50-5.90); RED CELL DISTRIBUTION WIDTH 17.1 % (11.6-17.2); WHITE BLOOD COUNT 5.3 TH/MM3 (4.0-11.0)
[2016-11-21 23:41] LABS: BICARBONATE 29.2 MEQ/L (21.0-32.0); POTASSIUM 3.5 MEQ/L (3.5-5.1)
[2016-11-21 23:54] LABS: BLOOD, URINE NEG (NEG); COMMENT (UR) CULT NOT INDICATED; CULTURE IF INDICATED CULT NOT INDICATED; GLUCOSE,URINE NEG (NEG); KETONE, URINE NEG (NEG); MUCUS URINE FEW /lpf (OCC); NITRITE,URINE NEG (NEG); URINE COLOR LIGHT-YELLOW (YELLW/STRAW)
[2016-11-22] MEDS ORDERED: ONDANSETRON HCL 4 MG/2 ML VIAL IV PUSH ONE (00:30)
[2016-11-22] MEDS ORDERED: MORPHINE SULFATE 4 MG/ML INJ IV PUSH ONE (00:30)
--- NOTE | 2016-11-22 00:33 | RADRPT ---
EXAM DATE/TIME: 11/21/2016 23:55 [facility] COMPARISON: CT ABDOMEN & PELVIS W CONTRAST, September 10, 2016, 23:47. INDICATIONS : Left lower back pain. IV CONTRAST: 95 cc Omnipaque 350 (iohexol) IV ORAL CONTRAST: Prescribed oral contrast ingested. RADIATION DOSE: 16.79 CTDIvol (mGy) MEDICAL HISTORY : Cardiovascular disease. SURGICAL HISTORY : Cholecystectomy. Appendectomy.Valve replacement ENCOUNTER: Initial ACUITY: 1 day PAIN SCALE: 7/10 LOCATION: Left lower back TECHNIQUE: Volumetric scanning of the abdomen and pelvis was performed. Using automated exposure control and ad justment of the mA and/or kV according to patient size, radiation dose was kept as low as reasonably achievable to obtain optimal diagnostic quality images. DICOM format image data is available electro nically for review and comparison. FINDINGS: Lung bases are clear. Postoperative median sternotomy. Stomach is distended. Previous cholecystectomy . Mild fatty liver. Spleen, adrenals, kidneys and pancreas demonstrate no acute findings. No free air or free fluid. No bowel obstruction. No acute bony abnormalities. Mild levoscoliosis. CONCLUSION: 1. No acute findings. Gastric distention. Previous cholecystectomy. Mild fatty infiltration of the li sun. Ariel Perez MD on November 22, 2016 at 0:26 Board Certified Radiologist. This report was verified electronically.
[2016-11-22] MEDS ORDERED: HYDR-3533 PO (01:06)
[2016-11-22] MEDS ORDERED: IBUP800T23 PO (01:06)
== END 2016-11-22 01:15 | disposition home or self-care (01) ==
LOC: NEPD 21:35
DX: R10.9 Unspecified abdominal pain (principal); I42.2 Other hypertrophic cardiomyopathy; I25.10 Atherosclerotic heart disease of native coronary artery without angina pectoris; E03.9 Hypothyroidism, unspecified; F17.290 Nicotine dependence, other tobacco product, uncomplicated; Z79.899 Other long term (current) drug therapy; Z88.5 Allergy status to narcotic agent; Z88.2 Allergy status to sulfonamides; Z88.0 Allergy status to penicillin
CPT/HCPCS: 74177; 80048; 81001; 85025; 96374; 96375; 99285; J1885; J2270; J2405; J7030; Q9967

== ENCOUNTER 2016-11-29 21:28 | Emergency (ER) | payer OTHER ==
[~2016-11-29] VITALS: Ht 182.9 cm; Wt 88.5 kg
[~2016-11-29 21:28] MED LIST changes: +HYDR-3533 PO; -MEDR4PAK PO; -NAPR500T PO
[2016-11-29 21:31] VITALS: BP 138/77; PULSE 81; RESP 16; TEMP 98.7; O2SAT 100
--- NOTE | 2016-11-29 22:40 | PD ---
HPI Chief Complaint: Injury Time Seen by Provider: 22:31 Travel History International Travel<30 days: No Contact w/Intl Traveler<30days: No Traveled to known affect area: No History of Present Illness HPI 21-year-old male here for evaluation of left hand pain. The patient reports pain between his second and third MCP joints. He reports that he injured his hand and was told that he had a fracture in the third metacarpal about 3 months ago, was seen by hand physician Dr. Tao, but did not require any surgical intervention. He states that last night after going to a concert and drinking alcohol, he lifted up some furniture and felt a pop in his hand. He has had continued and worsening pain since then. Pain is currently a 10 out of 10, constant, worse with movement and palpation. The patient is right-handed. PFSH Past Medical History Hx Anticoagulant Therapy: No Autoimmune Disease: No Heart Rhythm Problems: Yes Cancer: No Cardiomyopathy: Yes Cardiovascular Problems: Yes (Hypertrophic cardiomyopathy) Chemotherapy: No Cerebrovascular Accident: No Coronary Artery Disease: Yes Diabetes: No Diminished Hearing: No Endocrine: Yes Gastrointestinal Disorders: Yes Genitourinary: No Immune Disorder: No Implanted Vascular Access Dvce: No Musculoskeletal: Yes (Receives steroid injections for back ) Neurologic: No Psychiatric: No Respiratory: No Immunizations Current: Yes Thyroid Disease: Yes (Hypothyroidism) Tetanus Vaccination: Unknown Influenza Vaccination: Yes Past Surgical History Appendectomy: Yes (05/09/06) Cardiac Surgery: Yes (Removal of extra muscle out of mitral wall ) Cholecystectomy: Yes (2017) Hysterectomy: No Thoracic Surgery: Yes (Heart transplant age 6) Valve Replacement: Yes (removal of extra muscle out of mitrial wall 2011) Other Surgery: Yes (Subaortic resection) Social History Alcohol Use: Yes ("Rarely") Tobacco Use: Yes ("Cigars rarely" ) Substance Use: No Allergies-Medications (Allergen,Severity, Reaction): Coded Allergies: tramadol (Verified Allergy, Severe, 11/21/16) Sulfa (Sulfonamide Antibiotics) (Unverified Allergy, Intermediate, Rash, ) penicillin G (Unverified Allergy, Intermediate, Rash, 11/21/16) sumatriptan (Unverified Adverse Reaction, Severe, SVT, 11/21/16) Reported Meds & Prescriptions Reported Meds & Active Scripts Active Ibuprofen 800 Mg Tab 800 Mg PO Q8H PRN Reported Singulair (Montelukast Sodium) 10 Mg Tab 10 Mg PO HS Metoprolol Succinate ER 24 HR (Metoprolol Succinate) 100 Mg Tab 100 Mg PO BID Synthroid (Levothyroxine Sodium) 100 Mcg Tab 100 Mcg PO DAILY Review of Systems Except as stated in HPI: all other systems reviewed are Neg Physical Exam Narrative GENERAL: Well-developed, well-nourished, comfortable, no apparent distress. SKIN: Focused skin assessment warm/dry. No lacerations, abrasions, or ecchymosis. CARDIOVASCULAR: Bilateral distal radial pulses are brisk and equal. Regular rate and rhythm. Normal capillary refill in left hand. MUSCULOSKELETAL: Left hand is without obvious deformity with tenderness at the second and third MCP joints. There is normal range of flexion and extension in all 5 fingers and the left hand with all FDS and FDP as well as extensor tendons intact. NEUROLOGICAL: Awake and alert. No obvious cranial nerve deficits. Motor grossly within normal limits. Normal speech. Normal sensation in left hand. PSYCHIATRIC: Appropriate mood and affect; insight and judgment normal. Data Data Last Documented VS Vital Signs Date Time Temp Pulse Resp B/P (MAP) Pulse Ox O2 Delivery O2 Flow Rate FiO2 11/29/16 23:21 11/29/16 21:31 98.7 81 16 100 Room Air Orders Orders Hand, Complete ([id number]) (11/29/16 ) Oxycodone-Acetamin 5-325 Mg (Percocet (11/29/16 22:45) Oxycodone-Acetamin 10-325 Mg (Percocet 1 (11/29/16 23:15) [facility] Medical Decision Making Medical Screen Exam Complete: Yes Emergency Medical Condition: Yes Differential Diagnosis Left hand sprain, left hand fracture, ligamentous/tendinous injury Narrative Course Right hand x-ray: CONCLUSION: Small fracture fragment at the proximal lateral base of the third proximal phalanx. Patient was made aware of all findings. He is still complaining of pain despite receiving a dose of Percocet 5/325. I will give him another dose of Percocet. He is right-hand will be replaced and hand splint. He has normal range of flexion and extension in all 5 fingers in his left hand in isolation. I do not suspect a complete tendinous injury. His left hand will be placed in a splint. He will follow-up with his hand surgeon Dr. Singh in the next week. He was informed on when to return to the emergency department. He verbalizes understanding and agreement with plan. Diagnosis Primary Impression: Closed fracture of proximal phalanx of left middle finger Qualified Codes: S62.643A - Nondisplaced fracture of proximal phalanx of left middle finger, initial encounter for closed fracture Referrals: Enrique Singh MD 2 days Additional Instructions: Follow-up with your hand surgeon Dr. Singh in the next 2-3 days. Return to the emergency department for worsening symptoms or any other concerns. Scripts Oxycodone-Acetaminophen (Percocet) 10-325 mg Tab 1 TAB PO Q6H Y for PAIN, #12 TAB 0 Refills Prov: Jose G Land MD 11/29/16 Disposition: 01 DISCHARGE HOME Condition: Stable Jose G Land MD Nov 29, 2016 22:40
[2016-11-29] MEDS ORDERED: oxyCODONE/ACETAMINOPHEN 5 MG/325 MG TAB PO ONE (22:45)
--- NOTE | 2016-11-29 23:02 | RADRPT ---
EXAM DATE/TIME: 11/29/2016 22:47 [facility] COMPARISON: No previous studies available for comparison. INDICATIONS : Left hand pain in third metacarpal area. Punched a wall three months ago. MEDICAL HISTORY : Coronary artery disease SURGICAL HISTORY : Appendectomy. Cholecystectomy.CABGHeart transplant as child. ENCOUNTER: Initial ACUITY: 3 months PAIN SCORE: 7/10 LOCATION: Left hand FINDINGS: There is a small fracture fragment at the proximal lateral base of the third proximal phalanx. No oth er fracture is seen. The bones and joints are normally aligned. CONCLUSION: Small fracture fragment at the proximal lateral base of the third proximal phalanx. Zak Coronado MD on November 29, 2016 at 22:59 Board Certified Radiologist. This report was verified electronically.
[2016-11-29] MEDS ORDERED: oxyCODONE/ACETAMINOPHEN 10 MG/325 MG TAB PO ONE (23:15)
[2016-11-29] MEDS ORDERED: PERC10TA27 PO (23:22)
== END 2016-11-29 23:38 | disposition home or self-care (01) ==
LOC: NEPD 21:28
DX: S62.643A Nondisplaced fracture of proximal phalanx of left middle finger, initial encounter for closed fracture (principal); X50.0XXA Overexertion from strenuous movement or load, initial encounter; Y92.89 Other specified places as the place of occurrence of the external cause; Z72.0 Tobacco use
CPT/HCPCS: 29125; 73130

== ENCOUNTER 2016-12-01 21:20 | Emergency (ER) | payer OTHER ==
[~2016-12-01] VITALS: Ht 182.9 cm; Wt 90.0 kg
[~2016-12-01 21:20] MED LIST changes: -HYDR-3533 PO; +PERC10TA27 PO
[2016-12-01 21:21] VITALS: BP 144/85; PULSE 101; RESP 18; TEMP 98.2; O2SAT 99
[2016-12-01] MEDS ORDERED: LIDOCAINE HCL 1% 50 ML VIAL INFIL ONE (22:15)
[2016-12-01] MEDS ORDERED: BUPIVACAINE HCL PF 0.5% 10 ML VIAL INFIL ONE (22:15)
[2016-12-01] MEDS ORDERED: TETANUS/DIPHTHERIA TOXOID ADULT 0.5 ML VIAL IM ONE (22:15)
[2016-12-01] MEDS ORDERED: MORPHINE SULFATE 4 MG/ML INJ IV PUSH ONE (22:30)
[2016-12-01] MEDS ORDERED: ONDANSETRON HCL 4 MG/2 ML VIAL IV PUSH ONE (22:30)
[2016-12-01] MEDS ORDERED: KETOROLAC TROMETHAMINE 30 MG/ML (IVP) VIAL IV PUSH ONE (22:30)
[2016-12-01] MEDS ORDERED: CLINDAMYCIN INJ 600 MG in SODIUM CHLORIDE 0.9% INJ 100 ML IV ONE (22:45)
--- NOTE | 2016-12-01 22:46 | PD ---
HPI Chief Complaint: Bite or Sting Time Seen by Provider: 22:12 Travel History International Travel<30 days: No Contact w/Intl Traveler<30days: No Traveled to known affect area: No History of Present Illness HPI 21-year-old male that presents to the ED for evaluation of bite to the right middle finger. Patient states that he was bit by a dog. Per patient he was a friend's dog. She knows the employee adviser and and he states that the dogs up-to-date with vaccinations. No other medical issues reported. Patient was recently seen for a fracture to his left hand. Injury occurred about half an hour ago. Patient states that his pain is 10 out of 10. Screaming in pain. Patient does have lacerations to the right middle finger especially on the dorsal aspect of the finger as well as the palmar aspect of it. Patient states that he cannot flex it secondary to severe pain. He denies any numbness, tilling, weakness. No other injuries reported. He is unsure of his last tetanus booster. PFSH Past Medical History Hx Anticoagulant Therapy: No Autoimmune Disease: No Heart Rhythm Problems: Yes Cancer: No Cardiomyopathy: Yes Cardiovascular Problems: Yes (Hypertrophic cardiomyopathy) Chemotherapy: No Cerebrovascular Accident: No Coronary Artery Disease: Yes Diabetes: No Diminished Hearing: No Endocrine: Yes Gastrointestinal Disorders: Yes Genitourinary: No Immune Disorder: No Implanted Vascular Access Dvce: No Musculoskeletal: Yes (Receives steroid injections for back ) Neurologic: No Psychiatric: No Respiratory: No Immunizations Current: Yes Thyroid Disease: Yes (Hypothyroidism) Past Surgical History Appendectomy: Yes (05/09/06) Cardiac Surgery: Yes (Removal of extra muscle out of mitral wall ) Cholecystectomy: Yes (2017) Hysterectomy: No Thoracic Surgery: Yes (Heart transplant age 6) Valve Replacement: Yes (removal of extra muscle out of mitrial wall 2011) Other Surgery: Yes (Subaortic resection) Social History Alcohol Use: Yes ("Rarely") Tobacco Use: Yes ("Cigars rarely" ) Substance Use: No Allergies-Medications (Allergen,Severity, Reaction): Coded Allergies: tramadol (Verified Allergy, Severe, 12/01/16) Sulfa (Sulfonamide Antibiotics) (Unverified Allergy, Intermediate, Rash, 12/01/16) penicillin G (Unverified Allergy, Intermediate, Rash, 12/01/16) sumatriptan (Unverified Adverse Reaction, Severe, SVT, 12/01/16) Reported Meds & Prescriptions Reported Meds & Active Scripts Active Percocet (Oxycodone-Acetaminophen) 10-325 mg Tab 1 Tab PO Q6H PRN Ibuprofen 800 Mg Tab 800 Mg PO Q8H PRN Reported Clindamycin (Clindamycin HCl) 300 Mg Cap 300 Mg PO Q6H Singulair (Montelukast Sodium) 10 Mg Tab 10 Mg PO HS Metoprolol Succinate ER 24 HR (Metoprolol Succinate) 100 Mg Tab 100 Mg PO BID Synthroid (Levothyroxine Sodium) 100 Mcg Tab 100 Mcg PO DAILY Review of Systems Except as stated in HPI: all other systems reviewed are Neg Physical Exam Narrative GENERAL: SKIN: Warm and dry. HEAD: Atraumatic. Normocephalic. EYES: Pupils equal and round. No scleral icterus. No injection or drainage. ENT: No nasal bleeding or discharge. Mucous membranes pink and moist. Tongue is midline. No uvula deviation. NECK: Trachea midline. No JVD. CARDIOVASCULAR: Regular rate and rhythm. No murmurs, S3, S4. RESPIRATORY: No accessory muscle use. Clear to auscultation. Breath sounds equal bilaterally. GASTROINTESTINAL: Abdomen soft, non-tender, nondistended. Hepatic and splenic margins not palpable. MUSCULOSKELETAL: Extremities without clubbing, cyanosis, or edema. No obvious deformities. Full range of motion of the upper and lower extremities bilaterally. 2+ pulses bilaterally. Patient able to move the fingers with exception of the right middle finger. Patient does have cuts to the dorsal and the last back of the right hand. No obvious tendon or vessel damage noted. Heart to assess secondary to patient's pain. Patient does appear to have good capillary refill. NEUROLOGICAL: Awake and alert. No obvious cranial nerve deficits. Motor grossly within normal limits. Five out of 5 muscle strength in the arms and legs. Normal speech. PSYCHIATRIC: Appropriate mood and affect; insight and judgment normal. Data Data Last Documented VS Vital Signs Date Time Temp Pulse Resp B/P (MAP) Pulse Ox O2 Delivery O2 Flow Rate FiO2 12/01/16 21:21 98.2 101 18 144/85 (104) 99 Room Air Orders Orders Finger ([id number]) (12/01/16 22:14) Wound Care (12/01/16 22:14) Tetanus/Diphtheria Tox Adult (Tetanus/Di (12/01/16 22:15) Bupivacaine Pf 0.5% Inj (Marcaine Pf 0.5 (12/01/16 22:15) Lidocaine 1% Inj (50 Ml) (Xylocaine 1% I (12/01/16 22:15) Morphine Inj (Morphine Inj) (12/01/16 22:30) Ketorolac Inj (Toradol Inj) (12/01/16 22:30) Ondansetron Inj (Zofran Inj) (12/01/16 22:30) Clindamycin Inj (Cleocin Inj) (12/01/16 22:45) Splint Or Brace Apply/Monitor (12/01/16 23:23) MDM Medical Decision Making Medical Screen Exam Complete: Yes Emergency Medical Condition: Yes Medical Record Reviewed: Yes Interpretation(s) xray of the right middle finger was negative for acute disease Differential Diagnosis Fracture versus dogbite versus animal bite versus laceration Narrative Course 21-year-old male that presents to the ED for evaluation of bite to the right middle finger. Patient was properly examined and was found to have signs and symptoms concerning for dog bite. X-ray was ordered. Patient had a digital block performed by me. Patient was given tetanus booster. After explained procedure to the patient and she agreed to it laceration was repaired as stated in procedure note. Patient did have some relief from the pain. Patient was given parenteral IV. Patient declined clindamycin stating to already takes clindamycin IV. Patient was requesting more pain medication. My attending Dr. Patel recommended against it. Patient was not happy about this but did let me perform the procedure on him. Patient does have a history of opiate dependance. He wanted me to fix his lacerations so he can go. Patient states that he can take amoxicillin. Augmentin was prescribed to him. He was told to discontinue the clindamycin. See ED worsening symptoms. Motrin for pain. Recheck if worse. Follow up with hand surgeon. Patient was told to apply ice to the area. Procedures Procedure Narrative LACERATION LOCATION: right middle finger LENGTH: 1.5 cm laceration dorsal finger NUMBER OF STITCHES/STEPHANIE: 2 loose sutures REPAIR: The area of the laceration was prepped with Betadine and sterilely draped. The laceration was infiltrated with 1% Xylocaine and 0.5% Bupivacaine. The wound was copiously irrigated and explored without evidence of foreign body, tendon injury or neurovascular injury. The wound was closed using 4-0 Prolene. This was a 1 layer repair. A sterile dressing was applied. The patient was advised to keep the dressing clean and dry. Patient tolerated the procedure well. Diagnosis Primary Impression: Dog bite of finger Qualified Codes: S61.259A - Open bite of unspecified finger without damage to nail, initial encounter; W54.0XXA - Bitten by dog, initial encounter Patient Instructions: General Instructions Additional Instructions: Wound care daily with soap and water. You can apply bandaid if needed. Neosporyn or OTC antibiotic ointment to area as needed twice a day for at least 2 weeks to help with scarring and prevent infection. Meoderma OTC for scarring if needed. Avoid sun exposure for 2 months as the sun could make scar darker and more noticeable. Get sutures removed in 14 days. See ED if worst. Med/Other Pt SpecificInfo: Prescription(s) given Disposition: 01 DISCHARGE HOME Condition: Stable Luis A Botello Dec 01, 2016 22:46
--- NOTE | 2016-12-01 22:48 | RADRPT ---
EXAM DATE/TIME: 12/01/2016 22:21 [facility] COMPARISON: No previous studies available for comparison. INDICATIONS : Pain and laceration due to dog bite. MEDICAL HISTORY : Previous boxers fracture. SURGICAL HISTORY : Repaired boxers fracture. ENCOUNTER: Initial ACUITY: 1 day PAIN SCORE: 8/10 LOCATION: Right upper extremity hand, third digit. FINDINGS: Examination of the third digit of the right hand demonstrates no evidence of fracture or dislocation. No radiopaque foreign bodies are seen. The soft tissues demonstrate focal swelling dorsal third PI P region at the site of laceration. There is trace subcutaneous emphysema dorsal to the base of the t hird middle phalanx. No fractures. CONCLUSION: Soft tissue swelling and trace subcutaneous air. Sarkis Brewster MD on December 01, 2016 at 22:46 Board Certified Radiologist. This report was verified electronically.
[2016-12-01] MEDS ORDERED: CLIN1CAP6 PO (23:02)
[2016-12-01] MEDS ORDERED: AUGM875T3 PO (23:27)
== END 2016-12-02 00:40 | disposition home or self-care (01) ==
LOC: NEPC 21:20
DX: S61.252A Open bite of right middle finger without damage to nail, initial encounter (principal); W54.0XXA Bitten by dog, initial encounter; Z23 Encounter for immunization
CPT/HCPCS: 73140; 90471; 90714; 96374; 96375; 99284; J1885; J2405

== ENCOUNTER 2016-12-13 20:44 | Observation (INO) | payer OTHER ==
[~2016-12-13] VITALS: Ht 182.9 cm; Wt 87.0 kg
[~2016-12-13 20:44] MED LIST changes: +AUGM875T3 PO; +CLIN1CAP6 PO
[2016-12-13 20:46] VITALS: BP 147/80; PULSE 76; RESP 16; TEMP 97.8; O2SAT 100
--- NOTE | 2016-12-13 20:52 | PD ---
Physical Exam Date Seen by Provider: Dec 13, 2016 Time Seen by Provider: 20:48 Narrative 21-year-old male with history of dog bite to the right middle finger, treated with Augmentin outpatient and seen by , 2 days ago. Patient states his pain is worse in the last 2 days and he called the surgeon who recommended he come in for evaluation and possible admission for surgery. Pain is currently rated at a 6-7 out of 10. Patient currently not on oral antibiotics. Patient is allergic to penicillin, sumatriptan, tramadol, and sulfa. Data Data Last Documented VS Vital Signs Date Time Temp Pulse Resp B/P (MAP) Pulse Ox O2 Delivery O2 Flow Rate FiO2 12/13/16 20:46 97.8 76 16 147/80 (102) 100 Room Air [facility] Medical Record Reviewed: Yes Supervised Visit with ARLEN: Yes Narrative Course Vital signs are stable. Patient awaiting bed placement. Condition: Stable Chet Sykes Dec 13, 2016 20:52
[2016-12-13] MEDS ORDERED: ACETAMINOPHEN 500 MG CPLT PO ONE (22:00)
[2016-12-13 22:22] LABS: AUTOMATED NEUTROPHIL # 2.8 TH/MM3 (1.8-7.7); BASOPHIL # 0.1 TH/MM3 (0-0.2); BASOPHIL % 1.1 % (0.0-2.0); EOSINOPHIL # 0.2 TH/MM3 (0-0.4); EOSINOPHIL % 3.3 % (0.0-4.0); HEMATOCRIT 38.6 % (39.0-51.0); HEMO FLAGS DIFF FINAL; LYMPH % 33.7 % (9.0-44.0); LYMPHOCYTE # 1.7 TH/MM3 (1.0-4.8); MEAN CELL VOLUME 74.8 FL (80.0-100.0); MEAN CORPUSCULAR HEMOGLOBIN 23.9 PG (27.0-34.0); MEAN CORPUSCULAR HGB CONC 31.9 % (32.0-36.0); MONO % 8.5 % (0.0-8.0); NEUT % 53.4 % (16.0-70.0); PLATELET COUNT 310 TH/MM3 (150-450); RED BLOOD COUNT 5.16 MIL/MM3 (4.50-5.90); RED CELL DISTRIBUTION WIDTH 17.5 % (11.6-17.2); WHITE BLOOD COUNT 5.2 TH/MM3 (4.0-11.0)
[2016-12-13 22:32] LABS: ALT (GPT) 33 U/L (12-78); ANION GAP 7 MEQ/L (5-15); AST (GOT) 18 U/L (15-37); BICARBONATE 24.4 MEQ/L (21.0-32.0); BLOOD UREA NITROGEN 19 MG/DL (7-18); CHLORIDE 105 MEQ/L (98-107); GLOMERULAR FILTRATION RATE 86 ML/MIN (>89); POTASSIUM 4.1 MEQ/L (3.5-5.1); SODIUM (NA) 136 MEQ/L (136-145)
[2016-12-13 22:35] LABS: ALKALINE PHOSPHATASE 88 U/L (45-117); TOTAL BILIRUBIN ADULT 0.5 MG/DL (0.2-1.0)
[2016-12-13] MEDS ORDERED: GADODIAMIDE PF 287 MG/ML 20 ML VIAL (for RAD MRI) IVCONTRAST ONE (22:47)
[2016-12-13] MEDS ORDERED: MORPHINE SULFATE 2 MG/ML INJ IM PRN (23:30)
[2016-12-13] MEDS: METOPROLOL SUCCINATE 50 MG EXTENDED RELEASE TAB PO SCH (23:30)
--- NOTE | 2016-12-13 23:30 | PD ---
HPI Chief Complaint: Pain: Acute or Chronic Time Seen by Provider: 21:09 Travel History International Travel<30 days: No Contact w/Intl Traveler<30days: No Traveled to known affect area: No History of Present Illness HPI This is a 21-year-old male who presents to the emergency department with right finger pain that's been going on ever since the dog bit his finger 2 weeks ago. He says his pain is severe, constant, throbbing and worse with movement. He had a laceration repair in the emergency department. He's been following with Dr. Ramos in clinic and has seen him several times this week for increasing pain in his finger. He's been receiving Percocet. PFSH Past Medical History Hx Anticoagulant Therapy: No Autoimmune Disease: No Heart Rhythm Problems: Yes Cancer: No Cardiomyopathy: Yes Cardiovascular Problems: Yes (Hypertrophic cardiomyopathy) Chemotherapy: No Cerebrovascular Accident: No Coronary Artery Disease: Yes Diabetes: No Diminished Hearing: No Endocrine: Yes Gastrointestinal Disorders: Yes Genitourinary: No Immune Disorder: No Implanted Vascular Access Dvce: No Musculoskeletal: Yes (Receives steroid injections for back ) Neurologic: No Psychiatric: No Respiratory: No Immunizations Current: Yes Thyroid Disease: Yes (Hypothyroidism) Tetanus Vaccination: < 5 Years Influenza Vaccination: Yes Past Surgical History Appendectomy: Yes (05/09/06) Cardiac Surgery: Yes (Removal of extra muscle out of mitral wall ) Cholecystectomy: Yes (2017) Hysterectomy: No Thoracic Surgery: Yes (Heart transplant age 6) Valve Replacement: Yes (removal of extra muscle out of mitrial wall 2011) Other Surgery: Yes (Subaortic resection) Social History Alcohol Use: Yes (OCCASSIONALLY) Tobacco Use: No Substance Use: No Allergies-Medications (Allergen,Severity, Reaction): Coded Allergies: tramadol (Verified Allergy, Severe, 12/13/16) Sulfa (Sulfonamide Antibiotics) (Verified Allergy, Intermediate, Rash, ) penicillin G (Verified Allergy, Intermediate, Rash, 12/13/16) sumatriptan (Verified Adverse Reaction, Severe, SVT, 12/13/16) Reported Meds & Prescriptions Reported Meds & Active Scripts Active Reported Singulair (Montelukast Sodium) 10 Mg Tab 10 Mg PO HS Metoprolol Succinate ER 24 HR (Metoprolol Succinate) 100 Mg Tab 100 Mg PO BID Synthroid (Levothyroxine Sodium) 100 Mcg Tab 100 Mcg PO DAILY Review of Systems Except as stated in HPI: all other systems reviewed are Neg Physical Exam Narrative GENERAL:Well appearing, no acute distress SKIN: Focused skin assessment warm and dry. HEAD: Atraumatic. Normocephalic. EYES: Pupils equal and round. No injection or drainage. ENT: Moist mucous membranes NECK: Trachea midline. CARDIOVASCULAR: Regular rate and rhythm. No murmur appreciated. RESPIRATORY: Clear to auscultation. Breath sounds equal bilaterally. GASTROINTESTINAL: Abdomen soft, non-tender, nondistended. MUSCULOSKELETAL: Some swelling involving the right third PIP, well healing scar , no redness, warmth and some pain with flexion of the finger. NEUROLOGICAL: Awake and alert. No obvious cranial nerve deficits. Moving all extremities. PSYCHIATRIC: Appropriate mood and affect; insight and judgment normal. Data Data Last Documented VS Vital Signs Date Time Temp Pulse Resp B/P (MAP) Pulse Ox O2 Delivery O2 Flow Rate FiO2 12/13/16 20:46 97.8 76 16 147/80 (102) 100 Room Air Orders Orders Complete Blood Count With Diff (12/13/16 21:26) Comprehensive Metabolic Panel (12/13/16 21:26) ^ Insert Iv (12/13/16 21:26) Acetaminophen (Tylenol) (12/13/16 22:00) Admit Order (Ed Use Only) (12/13/16 22:44) Labs Laboratory Tests Test 12/13/16 21:56 White Blood Count 5.2 TH/MM3 Red Blood Count 5.16 MIL/MM3 Hemoglobin 12.3 GM/DL Hematocrit 38.6 % Mean Corpuscular Volume 74.8 FL Mean Corpuscular Hemoglobin 23.9 PG Mean Corpuscular Hemoglobin Concent 31.9 % Red Cell Distribution Width 17.5 % Platelet Count 310 TH/MM3 Mean Platelet Volume 7.3 FL Neutrophils (%) (Auto) 53.4 % Lymphocytes (%) (Auto) 33.7 % Monocytes (%) (Auto) 8.5 % Eosinophils (%) (Auto) 3.3 % Basophils (%) (Auto) 1.1 % Neutrophils # (Auto) 2.8 TH/MM3 Lymphocytes # (Auto) 1.7 TH/MM3 Monocytes # (Auto) 0.4 TH/MM3 Eosinophils # (Auto) 0.2 TH/MM3 Basophils # (Auto) 0.1 TH/MM3 CBC Comment DIFF FINAL Differential Comment Blood Urea Nitrogen 19 MG/DL Creatinine 1.08 MG/DL Random Glucose 75 MG/DL Total Protein 8.3 GM/DL Albumin 4.1 GM/DL Calcium Level 9.4 MG/DL Alkaline Phosphatase 88 U/L Aspartate Amino Transf (AST/SGOT) 18 U/L Alanine Aminotransferase (ALT/SGPT) 33 U/L Total Bilirubin 0.5 MG/DL Sodium Level 136 MEQ/L Potassium Level 4.1 MEQ/L Chloride Level 105 MEQ/L Carbon Dioxide Level 24.4 MEQ/L Anion Gap 7 MEQ/L Estimat Glomerular Filtration Rate 86 ML/MIN MDM Medical Decision Making Medical Screen Exam Complete: Yes Emergency Medical Condition: Yes Interpretation(s) No leukocytosis, Electrolytes are reassuring Differential Diagnosis Septic arthritis, osteoarthritis, drug-seeking behavior Narrative Course This is a 21-year-old male who presents to the emergency department with pain involving his third PIP ever since a dog bite. He has a fairly benign physical exam with no warmth or erythema at the joint. Labs are obtained which are reassuring and he is afebrile. I spoke to who would like to place the patient in observation to evaluate him for possible septic arthritis. Patient will be kept nothing by mouth after midnight. I do suspect that there is a component of drug-seeking behavior to this patient' s presentation. He's filled 44 controlled substance prescriptions from 15 different providers in the past year and is been seen multiple times in the emergency department for pain-related complaints. Physician Communication Physician Communication Discussed with Dr. Ramos and Diagnosis Primary Impression: Finger pain Admitting Information Admitting Physician Requests: Observation Condition: Stable Анна Ansari MD Dec 13, 2016 23:30
[2016-12-14 00:34] VITALS: BP 122/62; PULSE 67; RESP 18; TEMP 98.7; O2SAT 100
[2016-12-14] MEDS: metroNIDAZOLE 500 MG INJ 100 ML IV SCH ×2 (00:39→07:42)
[2016-12-14] MEDS: ONDANSETRON HCL 4 MG/2 ML VIAL IV PRN ×2 (00:46→12:39)
[2016-12-14] MEDS: CIPROFLOXACIN 400 MG PREMIX 200 ML IV SCH ×2 (02:00→12:27)
[2016-12-14 03:55] VITALS: BP 114/56; PULSE 64; RESP 16; TEMP 98.1; O2SAT 97
[2016-12-14] MEDS: MORPHINE SULFATE 4 MG/ML INJ IM PRN ×3 (04:00→11:54)
[2016-12-14] MEDS ORDERED: LEVOTHYROXINE SODIUM 100 MCG TAB PO SCH (06:00)
[2016-12-14] MEDS: METOPROLOL SUCCINATE 50 MG EXTENDED RELEASE TAB PO SCH (07:42)
[2016-12-14] MEDS ORDERED: DEXT 5%-NACL 0.45% 1000 ML INJ 1,000 ML IV SCH (08:30)
--- NOTE | 2016-12-14 08:59 | MH ---
cc: LUCY SINGH MD,SHERI ZUÑIGA DR. DATE OF ADMISSION 12/13/2016 DATE OF 1995 ADMITTING DOCTOR Ghazal Kearney MD PRIMARY CARE DOCTOR Dr. Sheri Valencia REASON FOR ADMISSION Pain in the right third finger. HISTORY OF PRESENT ILLNESS The patient is a 21-year-old male with significant past history of hypertrophic cardiomyopathy, hypothyroidism and atopic allergies for which he is on medication. The patient had a dog bit approximately two weeks ago for which he came to the ER. In the ER, he was evaluated by the ER physician at that time. The laceration was repaired by stitches. The patient was followed by Dr. Singh, hand surgeon who took out the stitches later on and who was following the patient. As per patient, the pain subsided and then restarted again. For the past one week, he has been to the ER several times for increasing pain in his finger. He has been receiving Percocet. Again, he had severe pain yesterday for which he came to the ER and because of this severe pain, evaluation and management and the patient was admitted as was recommended by Dr. Singh. At present, the patient has pain 4-6. At times it goes to 7-8. There is no fever. There is no discharge from the finger. There is no redness. Pain on movement. There are no other associated symptoms. PAST MEDICAL HISTORY 1. Hypertrophic cardiomyopathy for which the patient had surgery done in 2011 extra muscle was removed. 2. Hypothyroidism 3. Atopic allergies PAST SURGICAL HISTORY As described above. 1. Heart surgery for hypertrophic cardiomyopathy in 2011. 2. Appendectomy 3. Cholecystectomy MEDICATIONS The patient is on: 1. Singulair 2. Metoprolol 3. Synthroid This was confirmed with the patient. ALLERGIES The patient is allergic to TRAMADOL CAUSING RASH AND VOMITING. SULFA, THE PATIENT HAD HIVES IN CHILDHOOD, BUT DOES NOT REMEMBER, HE WAS TOLD. PENICILLIN-G SAME, HE WAS TOLD HE HAS ALLERGIES, BUT HE DOES NOT KNOW THAT. IMITREX CAUSING SEVERE TACHYCARDIA. SOCIAL HISTORY The patient used to smoke cigars in the past and now he is smoking just no nicotine vaporizer. He drink occasionally. He does not do any street drugs. He is a student at [employer]. FAMILY HISTORY Positive for hypothyroidism only. Mother and father both had hypothyroidism. REVIEW OF SYSTEMS As described above in history of present illness, otherwise negative for 10 systems. PHYSICAL EXAMINATION The patient is alert and oriented, well-built, lying on bed without any apparent distress. VITAL SIGNS: The patient is afebrile, pulse is 64, respiratory rate is 16, blood pressure 114/56, pulse ox of 97% on room air. HEENT: Head is, normocephalic. Eyes, negative conjunctival icterus. Mouth unremarkable. NECK: Supple. No increased JVD. Central trachea. CHEST: Clear to auscultation. CARDIOVASCULAR: S1, S2 audible. There is a very soft systolic ejection murmur which is normal as per patient. This is after surgery and it is normal for him because of hypertrophic cardiomyopathy. No other sounds noted. ABDOMEN: Soft. No organomegaly. Positive bowel sounds. MUSCULOSKELETAL: No cyanosis noted. No pedal edema. There is a very mild swelling of the right third finger proximal interphalangeal joint area with a small healing laceration on the lateral side of it approximately 1 cm without any redness or discharge or any foul smell or any crepitations. There is a healed scar on the same right hand third finger MCP joint. This is from the previous surgery. Positive pulses. No cyanosis noted. Positive capillary refill within normal limits in all fingers. Normal sensation. DEMONSTRATOR KNITTING: Alert and oriented. Normal facial features and movement. Normal part of extremities. SKIN: Warm and moist. PSYCH: Appropriate mood and affect. INVESTIGATIONS WBC 5.2, hemoglobin 12.3, hematocrit 38.6, platelet count is 310. Chemistry shows BUN 19. otherwise within normal. LFTs within normal limits. Total protein 8.3. The finger x-rays done on December 01 shows soft tissue swelling and trace subcutaneous air. There is a trace subcutaneous emphysema dorsal to the base of the third middle finger. No fracture. ASSESSMENT 1. Severe pain at right middle finger proximal interphalangeal joint after a dog bite and treatment with suture of laceration and removal of suture after healing. 2. Hypothyroidism 3. History of hypertrophic cardiomyopathy status post surgery in 2011. 4. Atopic allergies. PLAN 1. Admit to the floor under observation. 2. Discussed with hand surgeon on the floor. As discussed with hand surgeon, plan for MRI without contrast. Continue his home medication. 3. Analgesics on a p.r.n. basis. 4. Antiemetics on a p.r.n. basis. 5. IV hydration. 6. Condition discussed with the patient. 7. Discussed with hand surgeon. 8. Continue antibiotic. \ Further recommendation to follow as per patient progress. Discussed with RN. Ghazal Kearney MD JP/ILDA /8:11 AM /8:27 AM
[2016-12-14 09:35] VITALS: BP 111/55; PULSE 58; RESP 18; TEMP 98; O2SAT 97
--- NOTE | 2016-12-14 10:07 | RADRPT ---
EXAM DATE/TIME: 12/14/2016 09:04 [facility] COMPARISON: FINGER RIGHT 3RD DIGIT ([id number]), December 01, 2016, 22:21. INDICATIONS : Septic joint/dog bite CONTRAST: 19 cc Omniscan (gadodiamide) IV MEDICAL HISTORY : None. SURGICAL HISTORY : None. ENCOUNTER: Initial ACUITY: 4-6 days PAIN SCORE: 5/10 LOCATION: Right hand TECHNIQUE: Multiplanar, multisequence MRI examination was performed without contrast and after the intravenous a dministration of gadolinium. FINDINGS: There is inhomogeneous fat suppression in the mid to distal second through fourth digits. There is subcutaneous edema and mild enhancement within the soft tissues in the mid third digit just proximal to the proximal interphalangeal joint. Bone marrow signal is within normal limits. No fluid is visualized in the joint space. The tendons on the volar aspect of the digits demonstrate no abnorm ality. No fluid collection is present. CONCLUSION: There is subcutaneous edema and inflammation of the third digit, just proximal to the PIP joint. Ther e are no imaging findings to indicate osteomyelitis and there are no findings to indicate a septic amira int. Zak Ellsworth MD on December 14, 2016 at 10:01 Board Certified Radiologist. This report was verified electronically.
[2016-12-14 11:44] VITALS: BP 116/59; PULSE 60; RESP 18; TEMP 97.5; O2SAT 100
[2016-12-14] MEDS ORDERED: oxyCODONE/ACETAMINOPHEN 5 MG/325 MG TAB PO PRN ×2 (13:45→14:00)
[2016-12-14] MEDS ORDERED: PERC5TAB12 PO (15:09)
--- NOTE | 2016-12-14 15:16 | HHI.PR ---
Objective Objective Results - Vital Signs Date Time Temp Pulse Resp B/P (MAP) Pulse Ox O2 Delivery O2 Flow Rate FiO2 12/14/16 11:44 97.5 60 18 116/59 (78) 100 12/14/16 09:35 98.0 58 18 111/55 (73) 97 12/14/16 03:55 98.1 64 16 114/56 (75) 97 12/14/16 00:34 98.7 67 18 122/62 (82) 100 12/14/16 00:14 12/13/16 20:46 97.8 76 16 147/80 (102) 100 Room Air I/O 12/13/16 12/13/16 12/13/16 12/14/16 12/14/16 12/14/16 07:00 15:00 23:00 07:00 15:00 23:00 Intake Total 550 ml Balance 550 ml Intake Oral 250 ml IV Total 300 ml # Voids 1 Result Diagram: 12/13/16215512/13/162155 Other Results Laboratory Tests Test 12/13/16 21:56 White Blood Count 5.2 Red Blood Count 5.16 Hemoglobin 12.3 Hematocrit 38.6 Mean Corpuscular Volume 74.8 Mean Corpuscular Hemoglobin 23.9 Mean Corpuscular Hemoglobin Concent 31.9 Red Cell Distribution Width 17.5 Platelet Count 310 Mean Platelet Volume 7.3 Neutrophils (%) (Auto) 53.4 Lymphocytes (%) (Auto) 33.7 Monocytes (%) (Auto) 8.5 Eosinophils (%) (Auto) 3.3 Basophils (%) (Auto) 1.1 Neutrophils # (Auto) 2.8 Lymphocytes # (Auto) 1.7 Monocytes # (Auto) 0.4 Eosinophils # (Auto) 0.2 Basophils # (Auto) 0.1 CBC Comment DIFF FINAL Differential Comment Blood Urea Nitrogen 19 Creatinine 1.08 Random Glucose 75 Total Protein 8.3 Albumin 4.1 Calcium Level 9.4 Alkaline Phosphatase 88 Aspartate Amino Transf (AST/SGOT) 18 Alanine Aminotransferase (ALT/SGPT) 33 Total Bilirubin 0.5 Sodium Level 136 Potassium Level 4.1 Chloride Level 105 Carbon Dioxide Level 24.4 Anion Gap 7 Estimat Glomerular Filtration Rate 86 A/P Assessment and Plan MRi reviewed by hand sx. as per hand surgeon ok to dc without abx and follow as outpt. pt wants pain medication advised for ibuprofen and percocet priscription given. Side effects and precautions explained to pt icluding and not limited to if sleeepy or drowsy not to operate any machinary car or sarp object and not ot swim. he understood Ghazal Kearney MD Dec 14, 2016 15:16
[2016-12-14] MEDS ORDERED: MONTELUKAST SODIUM 10 MG TAB PO SCH (21:00)
== END 2016-12-14 16:13 | disposition home or self-care (01) ==
LOC: NEPD 20:44 → NEDA 22:46 → NEPHCDU 12-14 00:10
PROVIDERS: ADMIT Specialist; ATTEND Specialist
DX: M79.644 Pain in right finger(s) (principal); S61.252A Open bite of right middle finger without damage to nail, initial encounter; W54.0XXA Bitten by dog, initial encounter; Z88.0 Allergy status to penicillin; I42.2 Other hypertrophic cardiomyopathy; I25.10 Atherosclerotic heart disease of native coronary artery without angina pectoris; E03.9 Hypothyroidism, unspecified
CPT/HCPCS: 73220; 80053; 85025; 96365; 96366; 96375; 96376; 99285; A9579; G0378; J0744; J2270; J2405

== ENCOUNTER 2016-12-27 21:37 | Emergency (ER) | payer OTHER ==
[~2016-12-27] VITALS: Ht 182.9 cm; Wt 88.0 kg
[~2016-12-27 21:37] MED LIST changes: -AUGM875T3 PO; -CLIN1CAP6 PO; -IBUP800T23 PO; -METO100T9 PO; +METO1TAB43 PO; -PERC10TA27 PO; +PERC5TAB12 PO
[2016-12-27 21:40] VITALS: BP 154/84; PULSE 79; RESP 15; TEMP 98.1; O2SAT 99
--- NOTE | 2016-12-27 22:30 | PD ---
HPI Chief Complaint: Injury Time Seen by Provider: 22:22 Travel History International Travel<30 days: No Contact w/Intl Traveler<30days: No Traveled to known affect area: No History of Present Illness HPI Patient comes in complaining of continued pain in his right third digit status post dog bite approximately month ago. Patient states he saw hand surgeon this week and was told everything was okay however is concerned he may have injured it in his sleep. Patient states that he is a heavy sleeper as he wakes up with bruises from time to time. Patient is noted to be on Ambien. Patient states he tried taking ibuprofen with minimal relief of his symptoms. Pain is worse palpation. Patient denies any known injury. Patient is requesting an x-ray. PFSH Past Medical History Hx Anticoagulant Therapy: No Autoimmune Disease: No Heart Rhythm Problems: Yes Cancer: No Cardiomyopathy: Yes Cardiovascular Problems: Yes (HYPERTROPIC CARDIOMYOPATHY) Chemotherapy: No Cerebrovascular Accident: No Coronary Artery Disease: Yes Diabetes: No Diminished Hearing: No Endocrine: Yes Gastrointestinal Disorders: Yes Genitourinary: No Immune Disorder: No Implanted Vascular Access Dvce: No Musculoskeletal: Yes (Receives steroid injections for back ) Neurologic: No Psychiatric: No Respiratory: No Immunizations Current: Yes Thyroid Disease: Yes (Hypothyroidism) Past Surgical History Appendectomy: Yes (05/09/06) Cardiac Surgery: Yes (Removal of extra muscle out of mitral wall ) Cholecystectomy: Yes (2017) Hysterectomy: No Thoracic Surgery: Yes (Heart transplant age 6) Valve Replacement: Yes (removal of extra muscle out of mitrial wall 2011) Other Surgery: Yes (Subaortic resection 2012, appendectomy, cholecystectomy ) Social History Alcohol Use: Yes (OCCASSIONALLY) Tobacco Use: No Substance Use: No Allergies-Medications (Allergen,Severity, Reaction): Coded Allergies: tramadol (Verified Allergy, Severe, 12/27/16) Sulfa (Sulfonamide Antibiotics) (Verified Allergy, Intermediate, Rash, 12/27/16) penicillin G (Verified Allergy, Intermediate, Rash, 12/27/16) sumatriptan (Verified Adverse Reaction, Severe, SVT, 12/27/16) Reported Meds & Prescriptions Reported Meds & Active Scripts Active Percocet (Oxycodone-Acetaminophen) 5-325 mg Tab 1 Tab PO Q6H PRN Reported Singulair (Montelukast Sodium) 10 Mg Tab 10 Mg PO HS Metoprolol Succinate ER 24 HR (Metoprolol Succinate) 100 Mg Tab 100 Mg PO BID Synthroid (Levothyroxine Sodium) 100 Mcg Tab 100 Mcg PO DAILY Review of Systems Except as stated in HPI: all other systems reviewed are Neg Physical Exam Narrative GENERAL: Well-developed, overly nourished, in no acute distress, and non-ill appearing. SKIN: Well-healing dog bite wounds noted over the PIP joint right middle finger with minimal soft tissue swelling. No erythematous, crepitus, streaking, induration, drainage, or fluctuation noted. Neurovascularly intact distally. HEAD: Atraumatic. Normocephalic. EYES: Pupils equal and round. EOMI. No scleral icterus. No injection or drainage. ENT: No nasal bleeding or discharge. Mucous membranes pink and moist. NECK: Trachea midline. Supple. No nuclear rigidity. CARDIOVASCULAR: Capillary refill less than 2 seconds. Radial pulses 2+, intact , and equal bilaterally. RESPIRATORY: No accessory muscle use. No respiratory distress. MUSCULOSKELETAL: No obvious deformities. No clubbing. No cyanosis. No edema. Full range of motion. NEUROLOGICAL: Awake and alert. No obvious cranial nerve deficits. Motor grossly within normal limits. Normal speech. PSYCHIATRIC: Appropriate mood and affect; insight and judgment normal. Data Data Last Documented VS Vital Signs Date Time Temp Pulse Resp B/P (MAP) Pulse Ox O2 Delivery O2 Flow Rate FiO2 12/27/16 22:53 12/27/16 21:40 98.1 79 15 99 Room Air Orders Orders Finger ([id number]) (12/27/16 ) Ed Discharge Order (12/27/16 22:45) [facility] Medical Decision Making Medical Screen Exam Complete: Yes Emergency Medical Condition: Yes Interpretation(s) X-ray of the finger shows no acute abnormalities. To be over read by the radiologist. Differential Diagnosis Fracture, dislocation, drug-seeking, wound infection, wound check, chronic pain , opioid dependence, other Narrative Course Patient in no obvious distress upon re-evaluation. All pertinent Radiology result(s) discussed with patient. Any questions/concerns in reference to patient diagnosis/condition discussed and clarified prior to patient's discharge. Reinforced sheer importance of close follow up with patient's primary physician or primary care clinic. Instructed patient to return to ED immediately, if symptoms return/worsen. Patient showed understanding of above instructions. Further instructions and recommendations were detailed in discharge paperwork. Patient ambulated without difficulty out of ED at discharge. Diagnosis Primary Impression: Finger pain, right Referrals: Enrique Singh MD Patient Instructions: General Instructions Additional Instructions: Follow-up with your primary care physician and/or hand specialist next week for reevaluation. Use [id number] Tylenol and/or ibuprofen as needed for pain. Follow instructions on the packaging. Apply ice to affected area 20 or as needed for pain. Return to the emergency department if symptoms get worse. Disposition: 01 DISCHARGE HOME Condition: Stable Patrice Conner Dec 27, 2016 22:30
--- NOTE | 2016-12-27 22:53 | RADRPT ---
EXAM DATE/TIME: 12/27/2016 22:29 [place] COMPARISON: FINGER RIGHT 3RD DIGIT ([id number]), December 01, 2016, 22:21. INDICATIONS : Pain right hand 3rd finger MEDICAL HISTORY : Coronary artery disease SURGICAL HISTORY : Appendectomy. Cholecystectomy.CABGHeart transplant as child. ENCOUNTER: [facility] ACUITY: 2 weeks PAIN SCORE: 6/10 LOCATION: Right Hand 3rd finger FINDINGS: Examination of the third digit of the right hand demonstrates no evidence of fracture or dislocation. No radiopaque foreign bodies are seen. There is mild soft tissue swelling over the proximal interph alangeal joint. CONCLUSION: Soft tissue swelling over the proximal third digit no radiopaque foreign body or unde rlying bony abnormality. Rogerio Steiner MD on December 27, 2016 at 22:50 Board Certified Radiologist. This report was verified electronically.
[2017-01-02] MEDS ORDERED: CEPH500T PO (20:07)
[2017-01-02] MEDS ORDERED: OXYC1TAB63 PO ×2 (20:15→22:13)
== END 2016-12-27 23:00 | disposition home or self-care (01) ==
LOC: NEPD 21:37
DX: S61.252D Open bite of right middle finger without damage to nail, subsequent encounter (principal); X58.XXXD Exposure to other specified factors, subsequent encounter
CPT/HCPCS: 73140; 99283

== ENCOUNTER 2016-12-30 22:33 | Emergency (ER) | payer OTHER ==
[~2016-12-30] VITALS: Ht 182.9 cm; Wt 90.5 kg
[2016-12-30 22:34] VITALS: BP 155/80; PULSE 88; RESP 16; TEMP 98.5; O2SAT 98
[2016-12-30] MEDS ORDERED: AMBI10TA PO (23:15)
[2016-12-30] MEDS ORDERED: AUGM875T3 PO (23:15)
[2016-12-30] MEDS ORDERED: NEXI40CA PO (23:15)
[2016-12-30] MEDS ORDERED: IBUP1TAB7 PO (23:15)
--- NOTE | 2016-12-30 23:52 | PD ---
HPI Chief Complaint: Skin Problem Time Seen by Provider: 22:56 Travel History International Travel<30 days: No Contact w/Intl Traveler<30days: No Traveled to known affect area: No History of Present Illness HPI The patient is 21 year old male who presents to the [facility] emergency department with a history of right third digit pain that he reports began again on Saturday, 6 days ago. The patient was seen in the emergency department regarding this this past week. An x-ray was done which shows soft tissue swelling. The patient then followed up with his hand surgeon, in the office on Saturday. The patient was started back on antibiotic of Augmentin. The patient reports that he injured his right third digit when he was bitten in that finger by a friend's dog. He did come to the emergency department and had sutures loosely applied to the laceration. The patient reports that he was started on antibiotic. The patient reports that he has had surgery on the right third metacarpal in the past related to a fracture. The patient reports that he has a follow-up appointment scheduled with the hand surgeon for Saturday. The patient reports that he has been taking Tylenol 3 without relief of pain. He also has been taking ibuprofen 800 mg 3 times daily. He last took ibuprofen at 8 PM. He reports that he last took Tylenol at approximately 3 PM today. He did not take it again this evening as he reports it has not been helping. The patient reports that he has had some nausea that began yesterday. He denies having any vomiting. He reports that over the last 2 days he has had diarrhea approximately 2-3 times per day. He reports that the stool is green to brown in color. He denies having any blood or mucus in his stool. On review of systems otherwise, the patient denies having any known fevers, cough, congestion, neck pain, chest pain, shortness of breath, abdominal pain, urinary symptoms, or neurologic symptoms. [facility] Past Medical History Narrative Medical The patient's past medical history is significant for hypertrophic cardiomyopathy status post surgical excision of muscle in 2011, hypothyroid disorder, atopic allergies. Hx Anticoagulant Therapy: No Autoimmune Disease: No Heart Rhythm Problems: Yes Cancer: No Cardiomyopathy: Yes Cardiovascular Problems: Yes (HYPERTROPIC CARDIOMYOPATHY) Chemotherapy: No Cerebrovascular Accident: No Coronary Artery Disease: Yes Diabetes: No Diminished Hearing: No Endocrine: Yes Gastrointestinal Disorders: Yes Genitourinary: No Immune Disorder: No Implanted Vascular Access Dvce: No Musculoskeletal: Yes (Receives steroid injections for back ) Neurologic: No Psychiatric: No Respiratory: No Immunizations Current: Yes Thyroid Disease: Yes (Hypothyroidism) Past Surgical History Narrative Surgical The patient's past surgical history is significant for heart surgery to remove extra muscle related to hypertrophic cardiomyopathy, done in 2011, appendectomy , cholecystectomy, right hand surgery. Appendectomy: Yes (05/09/06) Cardiac Surgery: Yes (Removal of extra muscle out of mitral wall ) Cholecystectomy: Yes (2016) Hysterectomy: No Thoracic Surgery: Yes (Heart transplant age 6) Valve Replacement: Yes (removal of extra muscle out of mitrial wall 2011) Other Surgery: Yes (Subaortic resection 2011, appendectomy, cholecystectomy ) Social History Alcohol Use: Yes (OCCASSIONALLY) Tobacco Use: No Substance Use: No Allergies-Medications (Allergen,Severity, Reaction): Coded Allergies: tramadol (Verified Allergy, Severe, 12/27/16) Sulfa (Sulfonamide Antibiotics) (Verified Allergy, Intermediate, Rash, 12/27/16) penicillin G (Verified Allergy, Intermediate, Rash, 12/27/16) sumatriptan (Verified Adverse Reaction, Severe, SVT, 12/27/16) Reported Meds & Prescriptions Reported Meds & Active Scripts Active Reported Ambien (Zolpidem Tartrate) 10 Mg Tab 10 Mg PO HS PRN Augmentin (Amoxicillin-Clavulanate) 875-125 Mg Tab 1 Tab PO BID Nexium (Esomeprazole DR) 40 Mg Capdr 40 Mg PO DAILY Ibuprofen 800 Mg Tab 800 Mg PO Q8H PRN Singulair (Montelukast Sodium) 10 Mg Tab 10 Mg PO HS Metoprolol Succinate ER 24 HR (Metoprolol Succinate) 100 Mg Tab 100 Mg PO BID Synthroid (Levothyroxine Sodium) 100 Mcg Tab 100 Mcg PO DAILY Review of Systems Except as stated in HPI: all other systems reviewed are Neg General / Constitutional: No: Fever Eyes: No: Visual changes HENT: No: Headaches Cardiovascular: No: Chest Pain or Discomfort Respiratory: No: Shortness of Breath Gastrointestinal: No: Abdominal Pain Genitourinary: No: Dysuria Musculoskeletal: Positive: Myalgias, Arthralgias, Limited ROM, Edema, Pain Skin: No Rash Neurologic: No: Weakness Psychiatric: No: Depression Endocrine: No: Polydipsia Hematologic/Lymphatic: No: Easy Bruising Physical Exam Narrative General: The patient is a well-developed well-nourished male in no acute distress. Head and Neck exam: Head is normocephalic atraumatic. Eyes: EOMI, pupils are equal round and reactive to light. Nose: Midline septum with pink mucous membranes Mouth: Dentition unremarkable. Moist mucus membranes. Posterior oropharynx is not erythematous. No tonsillar hypertrophy. Uvula midline. Airway patent. Neck: No palpable lymphadenopathy. No nuchal rigidity. No thyromegaly. Cardiovascular: Regular rate and rhythm without murmurs, gallops, or rubs. Lungs: Clear to auscultation bilaterally. No wheezes, rhonchi, or rales. Abdomen: Soft, without tenderness to palpation in all 4 quadrants of the abdomen. No guarding, rebound, or rigidity. Normal bowel sounds are audible. No tenderness on palpation of McBurney's point. Extremities: No clubbing, cyanosis, or edema. 2+ pulses in all 4 extremities. The area of interest is the right hand. The patient has a scar present over the distal third metacarpal. The patient is also noted in the area of interest, overlying the PIP joint to have swelling, no significant erythema. The patient has what appears to be an area of scab/crust formation along the ulnar side of the PIP joint third digit. The patient also along the volar aspect of the third digit closer to the radial side of the DIP an area of healed wound from the dog bite. Over the sites are tender to palpation. The patient has no sausage digit. The patient has full range of motion of the PIP in flexion and extension. The patient reports pain with attempts at flexion of the PIP joint. Patient has intact sensation over the fingertip. The patient has less than 3 second capillary refill. No pointing or abscess formation is noted. Back: No costovertebral angle tenderness to palpation. Neurologic Exam: Grossly nonfocal. Skin Exam: Skin is warm and dry. Data Data Last Documented VS Vital Signs Date Time Temp Pulse Resp B/P (MAP) Pulse Ox O2 Delivery O2 Flow Rate FiO2 12/31/16 00:00 85 16 135/68 (90) 97 Room Air 12/30/16 22:34 98.5 Orders Orders Complete Blood Count With Diff (11/5/17 23:36) Comprehensive Metabolic Panel (12/30/16 23:36) C-Reactive Protein (Crp) (12/30/16 23:36) W[place]gren Sedimentation Rate (12/30/16 23:36) Iv Access Insert/Monitor (12/30/16 23:36) Ecg Monitoring (12/30/16 23:36) Oximetry (12/30/16 23:36) Oxycodone-Acetamin 5-325 Mg (Percocet (12/31/16 00:30) Labs Laboratory Tests Test 12/31/16 00:07 White Blood Count 6.3 TH/MM3 Red Blood Count 4.93 MIL/MM3 Hemoglobin 11.8 GM/DL Hematocrit 38.0 % Mean Corpuscular Volume 77.2 FL Mean Corpuscular Hemoglobin 23.9 PG Mean Corpuscular Hemoglobin Concent 31.0 % Red Cell Distribution Width 18.2 % Platelet Count 290 TH/MM3 Mean Platelet Volume 7.7 FL Neutrophils (%) (Auto) 54.3 % Lymphocytes (%) (Auto) 32.1 % Monocytes (%) (Auto) 9.0 % Eosinophils (%) (Auto) 3.9 % Basophils (%) (Auto) 0.7 % Neutrophils # (Auto) 3.4 TH/MM3 Lymphocytes # (Auto) 2.0 TH/MM3 Monocytes # (Auto) 0.6 TH/MM3 Eosinophils # (Auto) 0.2 TH/MM3 Basophils # (Auto) 0.0 TH/MM3 CBC Comment DIFF FINAL Differential Comment Erythrocyte Sedimentation Rate 3 mm/hr Blood Urea Nitrogen 15 MG/DL Creatinine 1.79 MG/DL Random Glucose 85 MG/DL Total Protein 7.9 GM/DL Albumin 4.0 GM/DL Calcium Level 8.9 MG/DL Alkaline Phosphatase 91 U/L Aspartate Amino Transf (AST/SGOT) 46 U/L Alanine Aminotransferase (ALT/SGPT) 39 U/L Total Bilirubin 0.3 MG/DL Sodium Level 139 MEQ/L Potassium Level 4.8 MEQ/L Chloride Level 104 MEQ/L Carbon Dioxide Level 26.4 MEQ/L Anion Gap 9 MEQ/L Estimat Glomerular Filtration Rate 48 ML/MIN C-Reactive Protein LESS THAN 0.29 MG/DL MDM Medical Decision Making Medical Screen Exam Complete: Yes Emergency Medical Condition: Yes Medical Record Reviewed: Yes Differential Diagnosis Infected dog bite, versus tendon injury, versus septic joint Narrative Course During the course of the patients emergency department visit, the patients history, examination, and differential diagnosis were reviewed with the patient. The patient was placed on a telephone answerer with oximetry and frequent blood pressure monitoring. The patient had IV access obtained and blood work sent for analysis. The patient was initially provided Percocet 5 mg by mouth 1 for pain. The patient reported that his pain level improved down to a 6 out of 10. The patient was given an additional Percocet 5 mg by mouth 1. The patient reports that he does have a ride home available. The patients laboratory studies were reviewed and remarkable for a white count of 6.3, hemoglobin 11.8, platelets 290 with monocytes 9, sedimentation rate 3, CMP is remarkable for creatinine 1.79, AST 46, C-reactive protein less than 0.29. The patient's creatinine is increased compared to previously. He reports that he has been taking ibuprofen 800 mg every 8 hours and also today took 2 doses of Aleve. The patient was instructed to 2 different anti- inflammatory medications at the same time as this can cause worsening renal function. The patient is instructed to follow-up with his hand surgeon in the morning for an appointment and follow-up. The patient is instructed to continue on Augmentin. The patient is instructed regarding the importance of pushing fluids and getting plenty of rest. The patient is instructed to avoid anti- inflammatory pain medications until renal function is retested and improved. The patient is resting comfortably and feels better, is alert and in no distress. The patients results and examination findings were discussed with the patient. The repeat examination is unremarkable and benign. The history, exam, diagnostic testing, and current condition do not suggest any significant pathology to warrant further testing, continued ED treatment, admission, or surgical evaluation at this point. The vital signs have been stable. The patient does not have uncontrollable pain, intractable vomiting, or other significant symptoms. The patient's condition is stable and appropriate for discharge. The patient will pursue further outpatient evaluation with a primary care physician or other designated or consulting physician as indicated in the discharge instructions. The patient expressed understanding and was agreeable with this plan. Diagnosis Primary Impression: Pain in finger of right hand Referrals: Enrique Singh MD 1 day Additional Instructions: The patient is instructed to follow-up with his hand surgeon in the morning for an appointment and follow-up. The patient is instructed to continue on Augmentin. The patient is instructed regarding the importance of pushing fluids and getting plenty of rest. The patient is instructed to avoid anti- inflammatory pain medications until renal function is retested and improved. Med/Other Pt SpecificInfo: Prescription(s) given Scripts Oxycodone-Acetaminophen (Percocet) 5-325 mg Tab 1 TAB PO Q6H Y for PAIN, #8 TAB 0 Refills Prov: Yasmeen Oakley MD 12/31/16 Disposition: 01 DISCHARGE HOME Condition: Stable Yasmeen Oakley MD Dec 30, 2016 23:52
[2016-12-31] VITALS: BP 135/68; PULSE 85; RESP 16; O2SAT 97
[2016-12-31 00:24] LABS: AUTOMATED NEUTROPHIL # 3.4 TH/MM3 (1.8-7.7); BASOPHIL % 0.7 % (0.0-2.0); EOSINOPHIL # 0.2 TH/MM3 (0-0.4); EOSINOPHIL % 3.9 % (0.0-4.0); HEMO FLAGS DIFF FINAL; LYMPH % 32.1 % (9.0-44.0); MEAN CELL VOLUME 77.2 FL (80.0-100.0); MEAN CORPUSCULAR HEMOGLOBIN 23.9 PG (27.0-34.0); NEUT % 54.3 % (16.0-70.0); PLATELET COUNT 290 TH/MM3 (150-450); RED BLOOD COUNT 4.93 MIL/MM3 (4.50-5.90); RED CELL DISTRIBUTION WIDTH 18.2 % (11.6-17.2); WHITE BLOOD COUNT 6.3 TH/MM3 (4.0-11.0)
[2016-12-31] MEDS ORDERED: oxyCODONE/ACETAMINOPHEN 5 MG/325 MG TAB PO ONE ×2 (00:30→02:00)
[2016-12-31 01:35] LABS: ALT (GPT) 39 U/L (12-78); ANION GAP 9 MEQ/L (5-15); AST (GOT) 46 U/L (15-37); BICARBONATE 26.4 MEQ/L (21.0-32.0); BLOOD UREA NITROGEN 15 MG/DL (7-18); CHLORIDE 104 MEQ/L (98-107); GLOMERULAR FILTRATION RATE 48 ML/MIN (>89); POTASSIUM 4.8 MEQ/L (3.5-5.1); SODIUM (NA) 139 MEQ/L (136-145)
[2016-12-31 01:36] LABS: ALKALINE PHOSPHATASE 91 U/L (45-117); TOTAL BILIRUBIN ADULT 0.3 MG/DL (0.2-1.0)
[2016-12-31] MEDS ORDERED: PERC5TAB12 PO (01:53)
[2016-12-31 01:58] VITALS: BP 130/64
[2017-01-02] MEDS ORDERED: CEPH500T PO (20:07)
[2017-01-02] MEDS ORDERED: OXYC1TAB63 PO ×2 (20:15→22:13)
== END 2016-12-31 02:12 | disposition home or self-care (01) ==
LOC: NEPE 22:33
DX: M79.644 Pain in right finger(s) (principal); R11.0 Nausea; R19.7 Diarrhea, unspecified; I25.10 Atherosclerotic heart disease of native coronary artery without angina pectoris; E03.9 Hypothyroidism, unspecified; Z88.2 Allergy status to sulfonamides; Z88.0 Allergy status to penicillin; Z88.8 Allergy status to other drugs, medicaments and biological substances; Z79.899 Other long term (current) drug therapy
CPT/HCPCS: 80053; 85025; 85652; 86140; 99283

== ENCOUNTER 2017-04-02 23:06 | Emergency (ER) | payer OTHER ==
[~2017-04-02] VITALS: Ht 182.9 cm; Wt 88.5 kg
[~2017-04-02 23:06] MED LIST changes: +AMBI10TA PO; +CEPH500T PO; +IBUP1TAB7 PO; +NEXI40CA PO; +OXYC1TAB63 PO; -PERC5TAB12 PO
[2017-04-02 23:08] VITALS: BP 142/84; PULSE 75; RESP 18; TEMP 98.7; O2SAT 98
[2017-04-03] MEDS ORDERED: SODIUM CHLOR 0.9% 1000 ML INJ 1,000 ML IV SCH (01:36)
--- NOTE | 2017-04-03 01:44 | PD ---
HPI Chief Complaint: Abdominal Pain Time Seen by Provider: 01:32 Travel History International Travel<30 days: No Contact w/Intl Traveler<30days: No Traveled to known affect area: No History of Present Illness HPI 31-year-old male complains of abdominal pain with nausea vomiting and hematemesis. Patient states the symptoms started the evening. Patient noticed some blood in the vomitus this evening. Patient denies any headache. Patient denies any coughing congestion. Patient denies any dysuria or frequency. Patient states the pain in cramping pain is sharp pain was severe on upper abdomen. Patient denies any pain radiation. Patient has history of hypertrophic cardiomyopathy, echo thyroidism. Patient status post appendectomy , mitral valve surgery, cholecystectomy. PFSH Past Medical History Hx Anticoagulant Therapy: No Cardiomyopathy: Yes Cardiovascular Problems: Yes Diminished Hearing: No Endocrine: Yes Musculoskeletal: Yes (Receives steroid injections for back ) Immunizations Current: Yes Thyroid Disease: Yes (Hypothyroidism) Past Surgical History Abdominal Surgery: Yes Appendectomy: Yes (05/09/06) Cardiac Surgery: Yes Cholecystectomy: Yes (2016) Hysterectomy: No Thoracic Surgery: Yes (Heart transplant age 6) Valve Replacement: Yes (MITRAL WALL [id number]) Other Surgery: Yes Social History Alcohol Use: Yes (OCCASSIONALLY) Tobacco Use: No Substance Use: No Allergies-Medications (Allergen,Severity, Reaction): Coded Allergies: tramadol (Verified Allergy, Severe, 04/02/17) Sulfa (Sulfonamide Antibiotics) (Verified Allergy, Intermediate, Rash, 04/02) penicillin G (Verified Allergy, Intermediate, Rash, 04/02/17) sumatriptan (Verified Adverse Reaction, Severe, SVT, 04/02/17) Reported Meds & Prescriptions Reported Meds & Active Scripts Active Reported Ambien (Zolpidem Tartrate) 10 Mg Tab 10 Mg PO HS PRN Nexium (Esomeprazole DR) 40 Mg Capdr 40 Mg PO DAILY Ibuprofen 800 Mg Tab 800 Mg PO Q8H PRN Singulair (Montelukast Sodium) 10 Mg Tab 10 Mg PO HS Metoprolol Succinate ER 24 HR (Metoprolol Succinate) 100 Mg Tab 100 Mg PO BID Synthroid (Levothyroxine Sodium) 100 Mcg Tab 100 Mcg PO DAILY Review of Systems General / Constitutional: No: Fever Eyes: No: Visual changes HENT: No: Headaches Cardiovascular: No: Chest Pain or Discomfort Respiratory: No: Shortness of Breath Gastrointestinal: Positive: Nausea, Vomiting, Abdominal Pain, Hematemesis Genitourinary: No: Dysuria Musculoskeletal: No: Pain Skin: No Rash Neurologic: No: Weakness Psychiatric: No: Depression Endocrine: No: Polydipsia Hematologic/Lymphatic: No: Easy Bruising Physical Exam Narrative GENERAL: Well-nourished, well-developed patient. SKIN: Focused skin assessment warm/dry. HEAD: Normocephalic. EYES: No scleral icterus. No injection or drainage. NECK: Supple, trachea midline. No JVD or lymphadenopathy. CARDIOVASCULAR: Regular rate and rhythm without murmurs, gallops, or rubs. RESPIRATORY: Breath sounds equal bilaterally. No accessory muscle use. GASTROINTESTINAL: Abdomen soft, nondistended. Patient has moderate tenderness on palpation epigastric area. No rebound tenderness. No mass. MUSCULOSKELETAL: No cyanosis, or edema. BACK: Nontender without obvious deformity. No CVA tenderness. Neurologic exam normal. Data Data Last Documented VS Vital Signs Date Time Temp Pulse Resp B/P (MAP) Pulse Ox O2 Delivery O2 Flow Rate FiO2 04/02/17 23:08 98.7 75 18 142/84 (103) 98 Room Air Orders Orders Complete Blood Count With Diff (04/03/17 01:36) Comprehensive Metabolic Panel (04/03/17 01:36) Lipase (04/03/17 01:36) Urinalysis - C+S If Indicated (04/03/17 01:36) Iv Access Insert/Monitor (04/03/17 01:36) Ecg Monitoring (04/03/17 01:36) Oximetry (04/03/17 01:36) Ondansetron Inj (Zofran Inj) (04/03/17 01:45) Sodium Chlor 0.9% 1000 Ml Inj (Ns 1000 M (04/03/17 01:36) Sodium Chloride 0.9% Flush (Ns Flush) (04/03/17 01:45) Famotidine Inj (Pepcid Inj) (04/03/17 01:45) Morphine Inj (Morphine Inj) (04/03/17 01:45) Morphine Inj (Morphine Inj) (04/03/17 03:45) Ct Abd/Pel W Iv Contrast(Rout) (04/03/17 03:36) Iohexol 350 Inj (Omnipaque 350 Inj) (04/03/17 03:51) Labs Laboratory Tests Test 04/03/17 01:47 04/03/17 03:19 White Blood Count 6.9 TH/MM3 Red Blood Count 4.51 MIL/MM3 Hemoglobin 10.6 GM/DL Hematocrit 34.2 % Mean Corpuscular Volume 75.8 FL Mean Corpuscular Hemoglobin 23.4 PG Mean Corpuscular Hemoglobin Concent 30.9 % Red Cell Distribution Width 17.5 % Platelet Count 300 TH/MM3 Mean Platelet Volume 7.7 FL Neutrophils (%) (Auto) 47.0 % Lymphocytes (%) (Auto) 37.5 % Monocytes (%) (Auto) 9.2 % Eosinophils (%) (Auto) 5.6 % Basophils (%) (Auto) 0.7 % Neutrophils # (Auto) 3.2 TH/MM3 Lymphocytes # (Auto) 2.6 TH/MM3 Monocytes # (Auto) 0.6 TH/MM3 Eosinophils # (Auto) 0.4 TH/MM3 Basophils # (Auto) 0.0 TH/MM3 CBC Comment DIFF FINAL Differential Comment Blood Urea Nitrogen 20 MG/DL Creatinine 1.04 MG/DL Random Glucose 60 MG/DL Total Protein 7.6 GM/DL Albumin 3.9 GM/DL Calcium Level 8.4 MG/DL Alkaline Phosphatase 82 U/L Aspartate Amino Transf (AST/SGOT) 60 U/L Alanine Aminotransferase (ALT/SGPT) 30 U/L Total Bilirubin 0.4 MG/DL Sodium Level 137 MEQ/L Potassium Level 4.7 MEQ/L Chloride Level 105 MEQ/L Carbon Dioxide Level 23.8 MEQ/L Anion Gap 8 MEQ/L Estimat Glomerular Filtration Rate 90 ML/MIN Lipase 182 U/L Urine Color YELLOW Urine Turbidity CLEAR Urine pH 5.5 Urine Specific [place] 1.013 Urine Protein NEG mg/dL Urine Glucose (UA) NEG mg/dL Urine Ketones NEG mg/dL Urine Occult Blood NEG Urine Nitrite NEG Urine Bilirubin NEG Urine Urobilinogen LESS THAN 2.0 MG/DL Urine Leukocyte Esterase NEG Urine RBC 1 /hpf Urine WBC LESS THAN 1 /hpf Urine Mucus FEW /lpf Microscopic Urinalysis Comment CULT NOT INDICATED MDM Medical Decision Making Medical Screen Exam Complete: Yes Emergency Medical Condition: Yes Interpretation(s) Last Impressions Abdomen/Pelvis CT 04/03/17 [id number] Signed Impressions: Service Date/Time: Monday, April 03, 2017 03:47 - CONCLUSION: No abnormality is identified to explain the abdominal pain. No acute finding is identified. Zak Ellsworth MD CBC WBC 6.9. Hemoglobin 10.6 hematocrit 34.2. MCV 75.8. BUN 20. Glucose 60. AST 60. UA negative. Differential Diagnosis Differential diagnosis including gastritis, PUD, pancreatitis, colitis, UTI, pyelonephritis, nephrolithiasis. Narrative Course 21-year-old male with abdominal pain, nausea vomiting. Patient also has hematemesis. Normal saline solution 1 L IV bolus. Pepcid 20 mg IV. Zofran 4 mg IV. Morphine 2 mg IV. Diagnosis Primary Impression: Gastritis Qualified Codes: K29.00 - Acute gastritis without bleeding Patient Instructions: General Instructions Additional Instructions: Take medications as directed. Avoid NSAIDs. Follow-up with personal physician gastrologist. Return if persistent problem or worse. Med/Other Pt SpecificInfo: Prescription(s) given Scripts Dicyclomine (Bentyl) 10 Mg Cap 10 MG PO TID Y for Bowel Management, #21 CAP 0 Refills Prov: Armand Smith MD 04/03/17 Sucralfate (Carafate) 1 Gram Tab 1 GM PO QID for Ulcer Prevention, #120 TAB 0 Refills On empty stomach Prov: Armand Smith MD 04/03/17 Pantoprazole (Protonix) 40 Mg Tab 40 MG PO DAILY for Reflux, #30 TAB 0 Refills Prov: Armand Smith MD 04/03/17 Disposition: 01 DISCHARGE HOME Condition: Stable Armand Smith MD Apr 03, 2017 01:44
[2017-04-03] MEDS ORDERED: ONDANSETRON HCL 4 MG/2 ML VIAL IVP ONE (01:45)
[2017-04-03] MEDS ORDERED: SODIUM CHLORIDE 0.9% FLUSH 10 ML FLUSH IV FLUSH PRN (01:45)
[2017-04-03] MEDS ORDERED: MORPHINE SULFATE 2 MG/ML INJ IV PUSH ONE ×2 (01:45→03:45)
[2017-04-03] MEDS ORDERED: FAMOTIDINE 20 MG/2 ML VIAL IV PUSH ONE (01:45)
[2017-04-03 02:12] LABS: AUTOMATED NEUTROPHIL # 3.2 TH/MM3 (1.8-7.7); BASOPHIL % 0.7 % (0.0-2.0); EOSINOPHIL # 0.4 TH/MM3 (0-0.4); EOSINOPHIL % 5.6 % (0.0-4.0); HEMATOCRIT 34.2 % (39.0-51.0); HEMOGLOBIN 10.6 GM/DL (13.0-17.0); LYMPH % 37.5 % (9.0-44.0); LYMPHOCYTE # 2.6 TH/MM3 (1.0-4.8); MEAN CELL VOLUME 75.8 FL (80.0-100.0); MEAN CORPUSCULAR HEMOGLOBIN 23.4 PG (27.0-34.0); MEAN CORPUSCULAR HGB CONC 30.9 % (32.0-36.0); MEAN PLATELET VOLUME 7.7 FL (7.0-11.0); MONO % 9.2 % (0.0-8.0); MONOCYTE # 0.6 TH/MM3 (0-0.9); PLATELET COUNT 300 TH/MM3 (150-450); RED BLOOD COUNT 4.51 MIL/MM3 (4.50-5.90); RED CELL DISTRIBUTION WIDTH 17.5 % (11.6-17.2); WHITE BLOOD COUNT 6.9 TH/MM3 (4.0-11.0)
[2017-04-03 02:29] LABS: ALBUMIN 3.9 GM/DL (3.4-5.0); ALKALINE PHOSPHATASE 82 U/L (45-117); ALT (GPT) 30 U/L (12-78); AST (GOT) 60 U/L (15-37); BICARBONATE 23.8 MEQ/L (21.0-32.0); BLOOD UREA NITROGEN 20 MG/DL (7-18); CALCIUM 8.4 MG/DL (8.5-10.1); CHLORIDE 105 MEQ/L (98-107); CREATININE 1.04 MG/DL (0.60-1.30); GLOMERULAR FILTRATION RATE 90 ML/MIN (>89); GLUCOSE,RANDOM 60 MG/DL (74-106); SODIUM (NA) 137 MEQ/L (136-145); TOTAL BILIRUBIN ADULT 0.4 MG/DL (0.2-1.0); TOTAL PROTEIN 7.6 GM/DL (6.4-8.2)
[2017-04-03 03:51] LABS: BILIRUBIN, URINE NEG (NEG); BLOOD, URINE NEG (NEG); GLUCOSE,URINE NEG (NEG); KETONE, URINE NEG (NEG); MUCUS URINE FEW /lpf (OCC); NITRITE,URINE NEG (NEG); PH, URINE 5.5 (5.0-8.5); URINE COLOR YELLOW (YELLW/STRAW); URINE LEUKOCYTE ESTERASE NEG (NEG)
[2017-04-03] MEDS ORDERED: IOHEXOL 350 MG/ML 10 ML VIAL (for RAD DIAG) IVCONTRAST ONE (03:51)
--- NOTE | 2017-04-03 04:07 | RADRPT ---
EXAM DATE/TIME: 04/03/2017 03:47 [facility] COMPARISON: CT ABDOMEN & PELVIS W CONTRAST, November 21, 2016, 23:55. INDICATIONS : Abdomen pain. IV CONTRAST: 75 cc Omnipaque 350 (iohexol) IV ORAL CONTRAST: No oral contrast ingested. RADIATION DOSE: 9.15 CTDIvol (mGy) MEDICAL HISTORY : None SURGICAL HISTORY : Cholecystectomy. Appendectomy.heart transplant. ENCOUNTER: Initial ACUITY: 1 day PAIN SCALE: 5/10 LOCATION: Bilateral abdomen TECHNIQUE: Volumetric scanning of the abdomen and pelvis was performed. Using automated exposure control and ad justment of the mA and/or kV according to patient size, radiation dose was kept as low as reasonably achievable to obtain optimal diagnostic quality images. DICOM format image data is available electro nically for review and comparison. FINDINGS: LOWER LUNGS: The visualized lower lungs are clear. LIVER: Homogeneous density without lesion. There is no dilation of the biliary tree. No calcified gallston es. SPLEEN: Spleen measures 13.5 cm. No lesion is seen. PANCREAS: Within normal limits. KIDNEYS: Normal in size and shape. There is no mass, stone or hydronephrosis. ADRENAL GLANDS: Within normal limits. VASCULAR: There is no aortic aneurysm. BOWEL/MESENTERY: The stomach, small bowel, and colon demonstrate no acute abnormality. There is no free intraperitone al air or fluid. ABDOMINAL WALL: Within normal limits. RETROPERITONEUM: There is no lymphadenopathy. BLADDER: No wall thickening or mass. REPRODUCTIVE: Within normal limits. INGUINAL: There is no lymphadenopathy or hernia. MUSCULOSKELETAL: No acute abnormality. There is mild levoscoliosis of the lumbar spine. CONCLUSION: No abnormality is identified to explain the abdominal pain. No acute finding is identified. Zak Ellsworth MD on April 03, 2017 at 4:03 Board Certified Radiologist. This report was verified electronically.
[2017-04-03] MEDS ORDERED: DICY10 PO (04:31)
[2017-04-03] MEDS ORDERED: CARA1TAB6 PO (04:31)
[2017-04-03] MEDS ORDERED: PROT40TA PO (04:31)
== END 2017-04-03 04:51 | disposition home or self-care (01) ==
LOC: NEPC 23:06
DX: K29.00 Acute gastritis without bleeding (principal); E03.9 Hypothyroidism, unspecified
CPT/HCPCS: 74177; 80053; 81001; 83690; 85025; 96361; 96374; 96375; 96376; 99285; J2270; J2405; J7030; Q9967

== ENCOUNTER 2017-05-02 00:02 | Emergency (ER) | payer OTHER ==
[~2017-05-02 00:02] MED LIST changes: +CARA1TAB6 PO; -CEPH500T PO; +DICY10 PO; -OXYC1TAB63 PO; +PROT40TA PO
[2017-05-02 00:06] VITALS: BP 136/91; PULSE 78; RESP 14; TEMP 98.4; O2SAT 100
[2017-05-02 00:45] VITALS: BP 138/84; TEMP 98.4; O2SAT 98
[2017-05-02 00:51] LABS: AUTOMATED NEUTROPHIL # 2.7 TH/MM3 (1.8-7.7); BASOPHIL % 0.7 % (0.0-2.0); EOSINOPHIL # 0.3 TH/MM3 (0-0.4); EOSINOPHIL % 4.6 % (0.0-4.0); HEMATOCRIT 35.9 % (39.0-51.0); LYMPH % 39.9 % (9.0-44.0); LYMPHOCYTE # 2.4 TH/MM3 (1.0-4.8); MEAN CELL VOLUME 73.8 FL (80.0-100.0); MEAN CORPUSCULAR HEMOGLOBIN 22.6 PG (27.0-34.0); MEAN CORPUSCULAR HGB CONC 30.6 % (32.0-36.0); MEAN PLATELET VOLUME 7.4 FL (7.0-11.0); MONO % 7.8 % (0.0-8.0); MONOCYTE # 0.5 TH/MM3 (0-0.9); PLATELET COUNT 326 TH/MM3 (150-450); RED BLOOD COUNT 4.87 MIL/MM3 (4.50-5.90); RED CELL DISTRIBUTION WIDTH 16.5 % (11.6-17.2); WHITE BLOOD COUNT 5.9 TH/MM3 (4.0-11.0)
[2017-05-02 00:59] LABS: CHLORIDE 106 MEQ/L (98-107); SODIUM (NA) 138 MEQ/L (136-145)
[2017-05-02 01:02] LABS: BICARBONATE 25.5 MEQ/L (21.0-32.0); BLOOD UREA NITROGEN 25 MG/DL (7-18); CALCIUM 8.5 MG/DL (8.5-10.1); GLUCOSE,RANDOM 91 MG/DL (74-106)
[2017-05-02 01:05] LABS: GLOMERULAR FILTRATION RATE 64 ML/MIN (>89)
[2017-05-02] MEDS ORDERED: SODIUM CHLOR 0.9% 1000 ML INJ 1,000 ML IV SCH (01:38)
[2017-05-02] MEDS ORDERED: ONDANSETRON HCL 4 MG/2 ML VIAL IVP ONE (01:45)
[2017-05-02] MEDS ORDERED: SODIUM CHLORIDE 0.9% FLUSH 10 ML FLUSH IV FLUSH PRN (01:45)
[2017-05-02] MEDS ORDERED: MORPHINE SULFATE 4 MG/ML INJ IV PUSH ONE (01:45)
[2017-05-02 02:00] VITALS: BP 145/84; PULSE 85; RESP 16; TEMP 98.2; O2SAT 98
[2017-05-02] MEDS ORDERED: IOHEXOL 350 MG/ML 10 ML VIAL (for RAD DIAG) IVCONTRAST ONE (02:05)
[2017-05-02 02:07] LABS: ALBUMIN 3.9 GM/DL (3.4-5.0)
[2017-05-02 02:11] LABS: ALT (GPT) 32 U/L (12-78); AST (GOT) 16 U/L (15-37)
[2017-05-02 02:13] LABS: TOTAL BILIRUBIN ADULT 0.3 MG/DL (0.2-1.0); TOTAL PROTEIN 7.4 GM/DL (6.4-8.2)
[2017-05-02 02:14] LABS: ALKALINE PHOSPHATASE 87 U/L (45-117)
[2017-05-02 02:18] LABS: BILIRUBIN, URINE NEG (NEG); BLOOD, URINE NEG (NEG); GLUCOSE,URINE NEG (NEG); KETONE, URINE NEG (NEG); NITRITE,URINE NEG (NEG); PH, URINE 6.5 (5.0-8.5); URINE COLOR YELLOW (YELLW/STRAW); URINE LEUKOCYTE ESTERASE NEG (NEG)
--- NOTE | 2017-05-02 02:20 | RADRPT ---
EXAM DATE/TIME: 05/02/2017 01:59 [facility] COMPARISON: CT ABDOMEN & PELVIS W CONTRAST, April 03, 2017, 3:47. INDICATIONS : Left upper abdominal pain. IV CONTRAST: 100 cc Omnipaque 350 (iohexol) IV ORAL CONTRAST: No oral contrast ingested. RADIATION DOSE: 20.96 CTDIvol (mGy) MEDICAL HISTORY : Hypertrophic cardiomyopathy. SURGICAL HISTORY : CABG Appendectomy.Cholecystectomy. ENCOUNTER: Initial ACUITY: 1 day PAIN SCALE: 8/10 LOCATION: Left upper quadrant abdomen TECHNIQUE: Volumetric scanning of the abdomen and pelvis was performed. Using automated exposure control and ad justment of the mA and/or kV according to patient size, radiation dose was kept as low as reasonably achievable to obtain optimal diagnostic quality images. DICOM format image data is available electro nically for review and comparison. FINDINGS: LOWER LUNGS: The visualized lower lungs are clear. LIVER: Homogeneous density without lesion. There is no dilation of the biliary tree. Cholecystectomy clips are present. SPLEEN: Mildly enlarged measuring 13.5 cm in length. PANCREAS: Within normal limits. KIDNEYS: Normal in size and shape. There is no mass, stone or hydronephrosis. ADRENAL GLANDS: Within normal limits. VASCULAR: There is no aortic aneurysm. BOWEL/MESENTERY: The stomach, small bowel, and colon demonstrate no acute abnormality. There is no free intraperitone al air or fluid. ABDOMINAL WALL: Within normal limits. RETROPERITONEUM: There is no lymphadenopathy. BLADDER: No wall thickening or mass. REPRODUCTIVE: Within normal limits. INGUINAL: There is no lymphadenopathy or hernia. MUSCULOSKELETAL: There is levoscoliosis. No acute osseous abnormality is seen. CONCLUSION: Stable examination of the abdomen and pelvis. No acute finding is identified. Zak Ellsworth MD on May 02, 2017 at 2:14 Board Certified Radiologist. This report was verified electronically.
[2017-05-02 02:38] LABS: RBC, URINE 0-2 /hpf (0-3); SQUAMOUS EPITHELIAL CELL URINE 0-5 /hpf (0-5); WBC, URINE 0-2 /hpf (0-5)
--- NOTE | 2017-05-02 02:50 | PD ---
HPI Chief Complaint: GI Complaint Time Seen by Provider: 01:38 Travel History International Travel<30 days: No Contact w/Intl Traveler<30days: No Traveled to known affect area: No History of Present Illness HPI The patient is a 21-year-old male that has had nausea and diarrhea since Saturday , 4 days. He does have some left upper quadrant abdominal pain as well. He states his pain is a 7/10. The patient admits to drinking large amounts of alcohol on Saturday night, before he got the pain on Saturday. The patient does have a past history of drug-seeking behavior. PFSH Past Medical History Hx Anticoagulant Therapy: No Autoimmune Disease: No Cardiomyopathy: Yes Cardiovascular Problems: Yes (OPEN HEART FOR CARDIOMYOPATHY 2011) Diminished Hearing: No Endocrine: Yes (HYPOTHYROIDISM) Gastrointestinal Disorders: Yes (NAUSEA) Musculoskeletal: Yes (Receives steroid injections for back ) Immunizations Current: Yes Thyroid Disease: Yes (Hypothyroidism) ?: Not Past Surgical History Abdominal Surgery: Yes Appendectomy: Yes (05/09/06) Cardiac Surgery: Yes Cholecystectomy: Yes (2016) Hysterectomy: No Thoracic Surgery: Yes (Heart transplant age 6) Valve Replacement: Yes (MITRAL WALL [id number]) Other Surgery: Yes Social History Alcohol Use: Yes (BINGE DRINKER) Tobacco Use: No Substance Use: No Allergies-Medications (Allergen,Severity, Reaction): Coded Allergies: tramadol (Verified Allergy, Severe, 04/02/17) Sulfa (Sulfonamide Antibiotics) (Verified Allergy, Intermediate, Rash, 04/02) penicillin G (Verified Allergy, Intermediate, Rash, 04/02/17) sumatriptan (Verified Adverse Reaction, Severe, SVT, 04/02/17) Reported Meds & Prescriptions Reported Meds & Active Scripts Active Bentyl (Dicyclomine HCl) 10 Mg Cap 10 Mg PO TID PRN Carafate (Sucralfate) 1 Gram Tab 1 Gm PO QID On empty stomach Protonix (Pantoprazole Sodium) 40 Mg Tab 40 Mg PO DAILY Reported Ambien (Zolpidem Tartrate) 10 Mg Tab 10 Mg PO HS PRN Nexium (Esomeprazole DR) 40 Mg Capdr 40 Mg PO DAILY Ibuprofen 800 Mg Tab 800 Mg PO Q8H PRN Singulair (Montelukast Sodium) 10 Mg Tab 10 Mg PO HS Metoprolol Succinate ER 24 HR (Metoprolol Succinate) 100 Mg Tab 100 Mg PO BID Synthroid (Levothyroxine Sodium) 100 Mcg Tab 100 Mcg PO DAILY Review of Systems Except as stated in HPI: all other systems reviewed are Neg Physical Exam Narrative GENERAL: The patient is alert, oriented 3 in slight apparent distress with his abdominal discomfort. His vital signs show blood pressure 136/91 but are otherwise normal. SKIN: Focused skin assessment warm/dry. HEAD: Atraumatic. Normocephalic. EYES: Pupils equal and round. No scleral icterus. No injection or drainage. ENT: No nasal bleeding or discharge. Mucous membranes pink and moist. NECK: Trachea midline. No JVD. CARDIOVASCULAR: Regular rate and rhythm. No murmur appreciated. RESPIRATORY: No accessory muscle use. Clear to auscultation. Breath sounds equal bilaterally. GASTROINTESTINAL: Abdomen soft, with tenderness in the left upper quadrant to direct palpation, nondistended. Hepatic and splenic margins not palpable. No guarding or rebound is present. MUSCULOSKELETAL: No obvious deformities. No clubbing. No cyanosis. No edema. NEUROLOGICAL: Awake and alert. No obvious cranial nerve deficits. Motor grossly within normal limits. Normal speech. PSYCHIATRIC: Appropriate mood and affect; insight and judgment normal. Data Data Last Documented VS Vital Signs Date Time Temp Pulse Resp B/P (MAP) Pulse Ox O2 Delivery O2 Flow Rate FiO2 05/02/17 00:06 98.4 78 14 136/91 (106) 100 Orders Orders Complete Blood Count With Diff (05/02/17 00:38) Lipase (05/02/17 00:38) Urinalysis - C+S If Indicated (05/02/17 00:38) Ct Abd/Pel W Iv Contrast(Rout) (05/02/17 01:38) Iv Access Insert/Monitor (05/02/17 01:38) Ecg Monitoring (05/02/17 01:38) Oximetry (05/02/17:38) Morphine Inj (Morphine Inj) (05/02/17 01:45) Ondansetron Inj (Zofran Inj) (05/02/17 01:45) Sodium Chlor 0.9% 1000 Ml Inj (Ns 1000 M (05/02/17 01:38) Sodium Chloride 0.9% Flush (Ns Flush) (05/02/17 01:45) Comprehensive Metabolic Panel (05/02/17 00:41) Iohexol 350 Inj (Omnipaque 350 Inj) (05/02/17 02:05) Labs Laboratory Tests Test 05/02/17 00:41 05/02/17 02:12 White Blood Count 5.9 TH/MM3 Red Blood Count 4.87 MIL/MM3 Hemoglobin 11.0 GM/DL Hematocrit 35.9 % Mean Corpuscular Volume 73.8 FL Mean Corpuscular Hemoglobin 22.6 PG Mean Corpuscular Hemoglobin Concent 30.6 % Red Cell Distribution Width 16.5 % Platelet Count 326 TH/MM3 Mean Platelet Volume 7.4 FL Neutrophils (%) (Auto) 47.0 % Lymphocytes (%) (Auto) 39.9 % Monocytes (%) (Auto) 7.8 % Eosinophils (%) (Auto) 4.6 % Basophils (%) (Auto) 0.7 % Neutrophils # (Auto) 2.7 TH/MM3 Lymphocytes # (Auto) 2.4 TH/MM3 Monocytes # (Auto) 0.5 TH/MM3 Eosinophils # (Auto) 0.3 TH/MM3 Basophils # (Auto) 0.0 TH/MM3 CBC Comment DIFF FINAL Differential Comment Blood Urea Nitrogen 25 MG/DL Creatinine 1.40 MG/DL Random Glucose 91 MG/DL Total Protein 7.4 GM/DL Albumin 3.9 GM/DL Calcium Level 8.5 MG/DL Alkaline Phosphatase 87 U/L Aspartate Amino Transf (AST/SGOT) 16 U/L Alanine Aminotransferase (ALT/SGPT) 32 U/L Total Bilirubin 0.3 MG/DL Sodium Level 138 MEQ/L Potassium Level 4.1 MEQ/L Chloride Level 106 MEQ/L Carbon Dioxide Level 25.5 MEQ/L Anion Gap 7 MEQ/L Estimat Glomerular Filtration Rate 64 ML/MIN Lipase 177 U/L Urine Color YELLOW Urine Turbidity CLEAR Urine pH 6.5 Urine Specific [place] 1.010 Urine Protein NEG mg/dL Urine Glucose (UA) NEG mg/dL Urine Ketones NEG mg/dL Urine Occult Blood NEG Urine Nitrite NEG Urine Bilirubin NEG Urine Urobilinogen 0.2 MG/DL Urine Leukocyte Esterase NEG Urine RBC 0-2 /hpf Urine WBC 0-2 /hpf Urine Squamous Epithelial Cells 0-5 /hpf Urine Bacteria NONE /hpf Microscopic Urinalysis Comment CULT NOT INDICATED MDM Medical Decision Making Medical Screen Exam Complete: Yes Emergency Medical Condition: Yes Medical Record Reviewed: Yes Interpretation(s) The CBC is normal except for hemoglobin of 11 and hematocrit of 35.9. The complete metabolic profile shows a BUN of 25, creatinine 1.4 with GFR of 64 but is otherwise unremarkable. The lipase is normal. The urinalysis is normal and cultures not indicated. The CT abdomen/pelvis with IV contrast shows stable examination of the abdomen/pelvis and no acute finding is noted. Differential Diagnosis Reflux esophagitis,, pancreatitis, ulcer pain, urinary stone, electrolyte disorder, alcohol gastritis Narrative Course The patient may have alcohol gastritis versus ulcer. These may not show up on a CAT scan and he did drink heavily before he got the symptoms on Saturday. Plan : The patient is to continue to take his Nexium And is given Mobic 15 mg daily and Zofran 8 mg #15. Diagnosis Primary Impression: Abdominal pain of unknown etiology Additional Instructions: The Mobic is 1 tablet daily and the Zofran is 1 tablet 3 times daily. Zofran is 8 mg, twice the strength of the usual Zofran to prevent nausea. Follow-up with your primary care physician next week. Discontinue alcohol completely. Med/Other Pt SpecificInfo: Prescription(s) given Scripts Ondansetron (Zofran) 8 Mg Tab 8 MG PO TID for Nausea/Vomiting, #15 TAB 0 Refills Prov: Jacques Gallo MD 05/02/17 Meloxicam (Mobic) 15 Mg Tab 15 MG PO DAILY, #15 TAB 0 Refills Prov: Jacques Gallo MD 05/02/17 Disposition: 01 DISCHARGE HOME Condition: Stable Jacques Gallo MD May 02, 2017 02:50
[2017-05-02] MEDS ORDERED: MOBI15TA PO (02:54)
[2017-05-02] MEDS ORDERED: ZOFR8TAB PO (02:54)
[2017-05-02] MEDS ORDERED: ONDANSETRON HCL 4 MG/2 ML VIAL IV ONE (03:00)
[2017-05-02] MEDS ORDERED: KETOROLAC TROMETHAMINE 60 MG/2 ML (IM) VIAL IVP ONE (03:00)
[2017-05-02 03:30] VITALS: BP 138/84; TEMP 98.4
== END 2017-05-02 03:33 | disposition home or self-care (01) ==
LOC: PHED 00:02
DX: R10.12 Left upper quadrant pain (principal); I42.9 Cardiomyopathy, unspecified; E03.9 Hypothyroidism, unspecified; Z72.89 Other problems related to lifestyle; Z88.2 Allergy status to sulfonamides; Z88.0 Allergy status to penicillin; Z88.8 Allergy status to other drugs, medicaments and biological substances; Z79.899 Other long term (current) drug therapy; Z95.1 Presence of aortocoronary bypass graft
CPT/HCPCS: 74177; 80053; 81001; 83690; 85025; 96361; 96374; 96375; 96376; 99284; J1885; J2270; J2405; J7030; Q9967

== ENCOUNTER 2017-09-21 14:25 | Observation (INO) ==
[2017-09-21] MEDS ORDERED: Sod Chloride 0.9% Inj 1,000 ML IV.SIG ONE (14:53)
--- NOTE | 2017-09-21 15:02 | ED ---
HPI General Chief complaint: Dental/Oral Stated complaint: tooth extraction/fever Time Seen by Provider: 09/21/17 14:46 Source: patient Mode of arrival: ambulatory Limitations: no limitations History of Present Illness HPI narrative: 22-year-old male patient with history of hypertrophic cardiomyopathy, status post mitral valve resection, had a dental procedure done 2 days ago, and has been having fevers of 102. He was sent in by his dentist for concerns of possible endocarditis. He denies any chest pains, shortness of breath, or other symptoms. He has not had any cough, cold symptoms, vomiting, abdominal pains, or other issues. He had been on clindamycin prior to procedure. Related Data Home Medications Medication Instructions Recorded Confirmed clindamycin HCl 300 mg PO TID 09/21/17 09/21/17 levothyroxine [Synthroid] 100 mcg PO DAILY 09/21/17 09/21/17 metoprolol succinate 100 mg PO BID 09/21/17 09/21/17 montelukast [Singulair] 10 mg PO QPM 09/21/17 09/21/17 oxycodone-acetaminophen [Percocet] 1 tab PO Q4-6H PRN 09/21/17 09/21/17 Allergies Allergy/AdvReac Type Severity Reaction Status Date / Time tramadol Allergy Severe Verified 04/02/17 23:32 penicillin G Allergy Intermediate Rash Verified 04/02/17 23:32 Sulfa (Sulfonamide Allergy Intermediate Rash Verified 04/02/17 23:32 Antibiotics) sumatriptan AdvReac Severe SVT Verified 04/02/17 23:32 Review of Systems Except as stated in HPI: all other systems reviewed are negative PMFSH History History Provided By: Patient Medical History Medical History H/O tooth extraction (Acute) Hypothyroid (Acute) Cardiomyopathy (Acute) Surgical History Surgical History History of appendectomy (Acute) History of cholecystectomy (Acute) History of heart surgery (Acute) Social History Social History Substance History: No History of Abuse Smoking Status: Former smoker Tobacco Type: Cigars How Often Do You Have a Drink Containing Alcohol: Monthly or less Recent Travel in [facility] within the Last 8 Weeks: No Recent Out of Country Travel within the Last 8 Weeks: No Exam Narrative Exam Narrative: GENERAL: Well-developed young white male patient currently and mild distress. Awake and oriented 3. SKIN: Focused skin assessment warm/dry. HEAD: Atraumatic. Normocephalic. EYES: Pupils equal and round. No scleral icterus. No injection or drainage. ENT: No nasal bleeding or discharge. Mucous membranes pink and moist. NECK: Trachea midline. No JVD. CARDIOVASCULAR: Regular rate and rhythm. Loud notable systolic murmur. RESPIRATORY: No accessory muscle use. Clear to auscultation. Breath sounds equal bilaterally. GASTROINTESTINAL: Abdomen soft, non-tender, nondistended. Hepatic and splenic margins not palpable. MUSCULOSKELETAL: No obvious deformities. No clubbing. No cyanosis. No edema. NEUROLOGICAL: Awake and alert. No obvious cranial nerve deficits. Motor grossly within normal limits. Normal speech. PSYCHIATRIC: Appropriate mood and affect; insight and judgment normal. Course Hospital Course: EKG, chest x-ray, and lab work was fairly unremarkable. Patient is afebrile in the ER. IV antibiotics were initiated after blood cultures are drawn. However , considering his history and fevers and recent oral surgery, there is a higher index of suspicion for endocarditis. At this point, patient would need follow- up blood cultures as well as ultrasound of the heart for further evaluation. My plan would be to admit him for further evaluation and case was discussed with family practice resident service for admission. Initial Documented Vital Signs Temperature 98.5 F 09/21/17 14:35 Pulse Rate 72 09/21/17 14:35 Respiratory Rate 16 09/21/17 14:35 Blood Pressure 152/84 H 09/21/17 14:35 Pulse Oximetry 99 09/21/17 14:35 Last Documented Vital Signs Temperature 98.5 F 09/21/17 14:35 Pulse Rate 82 09/21/17 14:37 Respiratory Rate 20 09/21/17 14:37 Blood Pressure 138/82 09/21/17 14:37 Pulse Oximetry 97 09/21/17 14:37 Medical Decision Making Differential Diagnosis Differential Diagnosis: Sepsis versus endocarditis versus viral Lab Data Result diagrams: 09/21/17 15:35 09/21/17 15:35 Lab Results 09/21/17 09/21/17 09/21/17 Range/Units 15:35 15:35 15:35 WBC 5.7 (4.0-11.0) th/mm3 RBC 4.92 (4.50-5.90) mil/mm3 Hgb 14.0 (13.0-17.0) gm/dL Hct 43.1 (39.0-51.0) % MCV 87.6 (80.0-100.0) fL MCH 28.4 (27.0-34.0) pg MCHC 32.4 (32.0-36.0) % RDW 15.9 (11.6-17.2) % Plt Count 252 (150-450) th/mm3 MPV 8.0 (7.0-11.0) fL Neut % (Auto) 46.0 (16.0-70.0) % Lymph % (Auto) 39.6 (9.0-44.0) % Traill % (Auto) 9.0 H (0.0-8.0) % Eos % (Auto) 4.6 H (0.0-4.0) % Baso % (Auto) 0.8 (0.0-2.0) % Neut # (Auto) 2.6 (1.8-7.7) th/mm3 Lymph # (Auto) 2.2 (1.0-4.8) th/mm3 Traill # (Auto) 0.5 (0.0-0.9) th/mm3 Eos # (Auto) 0.3 (0.0-0.4) th/mm3 Baso # (Auto) 0.0 (0.0-0.2) th/mm3 WBC Differential . Differential Comment Auto diff final Sodium 141 (136-145) meq/L Potassium 4.1 (3.5-5.1) meq/L Chloride 109 H (98-107) meq/L Carbon Dioxide 23.3 (21.0-32.0) meq/L Anion Gap 9 (5-15) meq/L BUN 15 (7-18) mg/dL Creatinine 1.09 (0.60-1.30) mg/dL Estimated GFR 85 L (>89) mL/min Random Glucose 76 (74-106) mg/dL Lactic Acid 1.7 (0.4-2.0) mmol/L Calcium 8.8 (8.5-10.1) mg/dL Total Bilirubin 0.3 (0.2-1.0) mg/dL AST 10 L (15-37) U/L ALT 23 (12-78) U/L Alkaline Phosphatase 82 (45-117) U/L Troponin I Less than 0.02 L (0.02-0.05) ng/mL Total Protein 7.3 (6.4-8.2) g/dL Albumin 3.6 (3.4-5.0) g/dL Imaging Data Radiologist's impression: Chest X-Ray 09/21/17 14:45 CONCLUSION: No acute cardiopulmonary disease. Discharge Plan Discharge Disposition Patient Disposition: 30 Still Patient Discharge Condition Condition: Stable Discharge Details Anticipated Discharge Date: 09/21/17 Diagnosis: Fever Physicians Team ED Provider: Carmencita Arredondo Primary Care Provider: Cecilia Lebron Rxs /Orders / Referrals /Forms Prescriptions: No Action clindamycin HCl 300 mg Capsule 300 mg PO TID RF: 0 metoprolol succinate 100 mg Tablet Extended Release 24 Hr 100 mg PO BID RF: 0 levothyroxine [Synthroid] 100 mcg Tablet 100 mcg PO DAILY RF: 0 oxycodone-acetaminophen [Percocet] 5-325 mg Tablet 1 tab PO Q4-6H PRN (Reason: Pain) RF: 0 montelukast [Singulair] 10 mg Tablet 10 mg PO QPM RF: 0 Discharge Interventions Interventions: Vital Signs Last Done: 09/21/17 14:37 Status ED Status: With Doctor
--- NOTE | 2017-09-21 15:20 | XR ---
EXAM DATE: 09/21/2017 3:09 PM EDT AGE/SEX: 22 years / Male INDICATIONS: Fever post tooth extraction. CLINICAL DATA: This is the patient's initial encounter. Patient reports that signs and symptoms have been present for 1 day and indicates a pain score of 0/10. MEDICAL/SURGICAL HISTORY: . Hypertrophic cardiomyopathy. . Subaortic resection. Septal myectom y open heart surgery. [place] [facility] [place] . FINDINGS: The lungs are clear without infiltrate, nodule, or mass. There is no appreciable pleural effusion for technique. Heart and mediastinum are unremarkable. There is evidence for prior median sternotomy. CONCLUSION: No acute cardiopulmonary disease. Electronically signed by: Karen Olivera MD 09/21/2017 3:19 PM EDT
[2017-09-21 16:12] LABS: Baso % (Auto) 0.8 % (0.0-2.0); Eos # (Auto) 0.3 th/mm3 (0.0-0.4); Eos % (Auto) 4.6 % (0.0-4.0); Hematocrit 43.1 % (39.0-51.0); Lymph # (Auto) 2.2 th/mm3 (1.0-4.8); Lymph % (Auto) 39.6 % (9.0-44.0); Mean Corpuscular HGB Conc 32.4 % (32.0-36.0); Mean Corpuscular Hemoglobin 28.4 pg (27.0-34.0); Mean Corpuscular Volume 87.6 fL (80.0-100.0); Mono # (Auto) 0.5 th/mm3 (0.0-0.9); Neut # (Auto) 2.6 th/mm3 (1.8-7.7); Platelet Count 252 th/mm3 (150-450); Red Blood Count 4.92 mil/mm3 (4.50-5.90); Red Cell Distribution Width 15.9 % (11.6-17.2); White Blood Count 5.7 th/mm3 (4.0-11.0)
[2017-09-21] MEDS ORDERED: Ibuprofen 600 MG Tablet PO ONE (16:19)
[2017-09-21 16:31] LABS: Albumin 3.6 g/dL (3.4-5.0); Anion Gap 9 meq/L (5-15); Aspartate Aminotransferase 10 U/L (15-37); Blood Urea Nitrogen 15 mg/dL (7-18); Calcium 8.8 mg/dL (8.5-10.1); Carbon Dioxide 23.3 meq/L (21.0-32.0); Chloride 109 meq/L (98-107); Glomerular Filtration Rate 85 mL/min (>89); Glucose,Random 76 mg/dL (74-106); Potassium 4.1 meq/L (3.5-5.1); Sodium 141 meq/L (136-145)
[2017-09-21 16:36] LABS: Alanine Aminotransferase 23 U/L (12-78); Alkaline Phosphatase 82 U/L (45-117); Total Protein 7.3 g/dL (6.4-8.2)
[2017-09-21] MEDS ORDERED: Vancomycin Inj 1 GM/200 ML PIGGYBACK IV.SIG ONE (16:45)
[2017-09-21] MEDS ORDERED: Vancomycin Inj 1,000 MG in Sodium Chlor 0.9% Inj 250 ML IV.SIG ONE (17:00)
--- NOTE | 2017-09-21 17:25 | P.HPFP ---
History of Present Illness Primary Care Physician: Cecilia Lebron <Kulwinder Hall 09/22/17 09:48> Cecilia Lebron <Nino Samuel 09/21/17 17:25> Chief Complaint: Fever s/p dental procedure with history of cardia surgery < Nino Samuel 09/21/17 18:24> History of Present Illness: Mr. Mayorga is a 22-year-old male with a past medical history significant for hypertrophic cardiomyopathy status post subaortic and septal myomectomy at 12 years of age. He Presents to the emergency room with fever and chills five days after dental extraction with bone graft. He awoke this morning at 3 AM with subjective fever and chills. His measured temperature shortly thereafter was 103F. He continued to be febrile and called his oral surgeon who recommended he present to the ED. He also reports an increase in pain today. He had 5/10 pain at the site of his extraction for most of this week which increased to 7-8 out of 10 this morning. He has been taking Percocet 10/325 every 4-6 hours and clindamycin 300 mg 3 times daily since the procedure. He has a history in the past of a heart murmur, he is unsure of its type or severity. He reports that this murmur is intermittent. He denies lightheadedness and dizziness, chest pain, shortness of breath, and palpitations. He does have mild nausea without vomiting or diaphoresis. He denies any skin lesions or rashes. <Nino Samuel 09/21/17 20:46> - Diagnosis (1) Fever (2) Hypertrophic cardiomyopathy (3) Hypothyroidism <Nino Samuel 09/21/17 21:52> (1) Dental infection (2) Hypertrophic cardiomyopathy (3) Hypothyroidism <Kulwinder Hall 09/22/17 09:48> Review of Systems Past medical: Hypertrophic cardiomyopathy Hypothyroidism controlled on brand name Synthroid 100 mcg per day. Past Surgical: Subaortic resection and septal myomectomy Cholecystectomy Appendectomy Knee arthroscopically Social history: smoking: None EtOH: None currently Drugs: Denies drug use Family history: No significant medical problems in parents or siblings <Nino Samuel 09/21/17 19:09> Constitutional: Reports chills, Reports fatigue, Reports fever(s), Reports headache(s) <Nino Samuel 09/21/17 19:09> Eyes: Denies blurry vision <Nino Samuel 09/21/17 19:09> Ears, Nose, Mouth, and Throat: Reports dental pain, Denies hearing loss, Denies neck pain, Denies sinus pain, Denies sinus pressure, Denies sore throat < Nino Samuel 09/21/17 19:53> Cardiovascular: Denies chest pain, Denies lightheadedness <Nino Samuel 09/21/17 19:53> Comments: Denies palpitations <Nino Samuel 09/21/17 19:53> Respiratory: Denies chest congestion, Denies cough, Denies shortness of breath <Nino Samuel 09/21/17 19:09> Gastrointestinal: Reports nausea, Denies abdominal pain, Denies change in bowel habits, Denies change in stools, Denies constipation, Denies vomiting < Nino Samuel 09/21/17 20:46> Comments: No dysuria <Nino Samuel 09/21/17 19:09> Skin/Breast: Denies new lesions, Denies rash <Nino Samuel 09/21/17 19:09> PMFSH - History History Provided By: Patient <Nino Samuel 09/21/17 17:25> - Medical History Medical History: Medical History (Last Updated 09/21/17 @ 15:02 by Susie Ferguson RN) H/O tooth extraction Hypothyroid Cardiomyopathy <Kulwinder Hall 09/22/17 09:48> Medical History (Last Updated 09/21/17 @ 15:02 by Susie Ferguson, JOSÉ ANTONIO) H/O tooth extraction Hypothyroid Cardiomyopathy <Nino Samuel 09/21/17 17:25> - Surgical History Surgical History: Surgical History (Last Updated 09/21/17 @ 15:02 by Susie Ferguson, RN) History of appendectomy History of cholecystectomy History of heart surgery <Kulwinder Hall 09/22/17 09:48> Surgical History (Last Updated 09/21/17 @ 15:02 by Susie Ferguson RN) History of appendectomy History of cholecystectomy History of heart surgery <Nino Samuel 09/21/17 17:25> - Tobacco History Smoking Status: Former smoker <Nino Samuel 09/21/17 17:25> Tobacco Type: Cigars <Nnio Samuel 09/21/17 17:25> - Alcohol History How Often Do You Have a Drink Containing Alcohol: Monthly or less <Nino Samuel 09/21/17 17:25> - Substance Use History Substance History: No History of Abuse <Nino Samuel 09/21/17 17:25> - Travel History Recent Travel in the [facility] Within the Last 8 Weeks: No <Nino Samuel 09/21/17 17:25> Recent Travel Out of the Country Within the Last 8 Weeks: No <Nino Samuel 09/21/17 17:25> - Immunization History Tetanus Immunization: <5 Years <Nino Samuel 09/21/17 17:25> Medications and Allergies Allergies Allergy/AdvReac Type Severity Reaction Status Date / Time tramadol Allergy Severe Verified 04/02/17 23:32 penicillin G Allergy Intermediate Rash Verified 04/02/17 23:32 Sulfa (Sulfonamide Allergy Intermediate Rash Verified 04/02/17 23:32 Antibiotics) sumatriptan AdvReac Severe SVT Verified 04/02/17 23:32 <Kulwinder Hall 09/22/17 09:48> Home Medications Medication Instructions Recorded Confirmed Type clindamycin HCl 300 mg PO TID 09/21/17 09/21/17 History levothyroxine [Synthroid] 100 mcg PO DAILY 09/21/17 09/21/17 History metoprolol succinate 100 mg PO BID 09/21/17 09/21/17 History montelukast [Singulair] 10 mg PO QPM 09/21/17 09/21/17 History oxycodone-acetaminophen [Percocet] 1 tab PO Q4-6H PRN 09/21/17 09/21/17 History <Kulwinder Hall 09/22/17 09:48> Active Medications: Active Medications Acetaminophen (Tylenol) 650 mg PO Q4H PRN PRN Reason: Temp > 100.4 Last Admin: 09/22/17 01:26 Dose: 650 mg Hydrocodone Bitart/Acetaminophen ([place] 10/325) 1 tab PO Q4H PRN PRN Reason: PAIN SCALE 6 TO 10 Last Admin: 09/22/17 05:42 Dose: 1 tab Hydrocodone Bitart/Acetaminophen ([place] 5/325) 1 tab PO Q4H PRN PRN Reason: PAIN SCALE 3 TO 5 Al Hydroxide/Mg Hydroxide (Milk Of [place] Liq) 30 ml PO Q12H PRN PRN Reason: Mild Constipation Ceftriaxone Sodium 2,000 mg/ (Sodium Chloride) 100 mls @ 200 mls/hr IV.SIG Q24H [facility] Last Infusion: 09/22/17 02:53 Dose: Infused Vancomycin HCl 1,500 mg/ (Sodium Chloride) 515 mls @ 250 mls/hr IV.SIG Q8H [facility] Last Admin: 09/22/17 06:05 Dose: 250 mls/hr Ibuprofen (Motrin) 400 mg PO Q6HR PRN PRN Reason: PAIN SCALE 1 TO 2 Last Admin: 09/21/17 21:30 Dose: 400 mg Levothyroxine Sodium (Synthroid) 100 mcg PO DAILY@0600 [facility] Last Admin: 09/22/17 05:42 Dose: 100 mcg Metoprolol Succinate (Toprol Xl) 100 mg PO BID [facility] Last Admin: 09/22/17 09:18 Dose: 100 mg Montelukast Sodium (Singulair) 10 mg PO DAILY@1800 [facility] Morphine Sulfate (Morphine Inj) 2 mg IV.PUSH Q1H PRN PRN Reason: Pain Scale 7-10 (Intractable) Last Admin: 09/22/17 08:33 Dose: 2 mg Naloxone HCl (Narcan Inj) 0.4 mg IV.PUSH UNSCH PRN PRN Reason: SEE LABEL COMMENTS Senna/Docusate Sodium (Francisca-Colace) 1 tab PO BID [facility] Last Admin: 09/22/17 09:19 Dose: 1 tab Sennosides (Senokot) 17.2 mg PO Q12H PRN PRN Reason: Moderate Constipation <Kulwinder Hall - 09/22/17 09:48> Active Medications Vancomycin HCl 1,000 mg/ (Sodium Chloride) 250 mls @ 250 mls/hr IV.SIG ONCE ONE Stop: 09/21/17 17:59 <Nino Samuel - 09/21/17 17:25> Exam Vital signs: Vital Signs 09/21/17 14:35 09/21/17 14:37 09/21/17 19:13 Temperature 98.5 F Pulse Rate 72 82 67 Respiratory Rate 16 20 16 Blood Pressure 152/84 H 138/82 137/73 Pulse Oximetry 99 97 97 09/21/17 20:00 09/21/17 23:11 09/22/17 04:00 Temperature 98.7 F 97.7 F 97.8 F Pulse Rate 70 77 54 L Respiratory Rate 18 19 18 Blood Pressure 133/76 104/53 L 99/49 L Pulse Oximetry 99 97 96 09/22/17 07:48 09/22/17 08:53 09/22/17 09:34 Temperature 97.7 F 97.7 F Pulse Rate 65 65 Respiratory Rate 16 16 0 L Blood Pressure 109/54 L 109/54 L Pulse Oximetry 97 97 Intake & Output 09/21/17 09/22/17 09/22/17 18:59 06:59 18:59 Intake Total 3727 / 3727 Balance 3727 / 3727 Weight 88.451 kg Intake: IV 1864 / 5 Vancomycin Inj 1,000 MG In NS 250 / 250 Inj 250 ML @ 250 mls/hr IV.SIG ONCE ONE Rx#:[id number] Vancomycin Inj 1,500 MG In NS 515 / 515 Inj 500 ML @ 250 mls/hr IV.SIG Q8H [facility] Rx#:[id number] Rocephin Inj 2,000 MG In NS Inj 100 / 100 100 ML @ 200 mls/hr IV.SIG Q24H [facility] Rx#:[id number] Oral 1861 / 1861 <Kulwinder Hall - 09/22/17 09:48> Vital Signs 09/21/17 14:35 09/21/17 14:37 Temperature 98.5 F Pulse Rate 72 82 Respiratory Rate 16 20 Blood Pressure 152/84 H 138/82 Pulse Oximetry 99 97 Intake & Output 09/20/17 09/21/17 09/21/17 18:59 06:59 18:59 Weight 88.451 kg <Emerson Samuelolayojana Morillo - 09/21/17 19:53> Narrative: General: Well-developed, alert, and in no acute distress. Appears stated age. Neurologic: Cranial nerves II through XII intact. 5 out of 5 strength in all extremities. HEENT: Atraumatic, PERRL, nonicteric sclera and no conjunctival injection, moist mucous membranes. Open wound to right lateral incisor after extraction. Significant tenderness to that area and the surrounding areas. No sinus tenderness. Neck: Supple, nontender without masses or lymphadenopathy, trachea midline. Cardiac: Regular rate and rhythm with 3/6 holosystolic murmur loudest over the tricuspid area. Pulmonary: Nonlabored breathing. Lungs clear to auscultation bilaterally with good air movement Abdomen: Normal bowel sounds, soft and nontender without rebound or guarding Extremities: No edema, 2+ pedal pulses, capillary refill less than 2 seconds. No skin lesions to the distal extremities. <LizzieEmersonNino J - 09/21/17 19:53> Results - Labs Result diagrams: 09/22/17 05:30 09/22/17 05:30 <Kulwinder Hall - 09/22/17 09:48> Abnormal lab results 09/21/17 09/21/17 09/22/17 Range/Units 15:35 15:35 05:30 Lymph % (Auto) 48.4 H (9.0-44.0) % Martin % (Auto) 9.0 H 9.0 H (0.0-8.0) % Eos % (Auto) 4.6 H 4.8 H (0.0-4.0) % Chloride 109 H (98-107) meq/L Estimated GFR 85 L (>89) mL/min Calcium (8.5-10.1) mg/dL AST 10 L (15-37) U/L Troponin I Less than 0.02 L (0.02-0.05) ng/mL 09/22/17 Range/Units 05:30 Lymph % (Auto) (9.0-44.0) % Martin % (Auto) (0.0-8.0) % Eos % (Auto) (0.0-4.0) % Chloride 109 H (98-107) meq/L Estimated GFR (>89) mL/min Calcium 8.0 L D (8.5-10.1) mg/dL AST (15-37) U/L Troponin I (0.02-0.05) ng/mL Short CBC 09/21/17 09/22/17 Range/Units 15:35 05:30 WBC 5.7 5.3 (4.0-11.0) th/mm3 Hgb 14.0 13.2 (13.0-17.0) gm/dL Hct 43.1 40.7 (39.0-51.0) % Plt Count 252 198 (150-450) th/mm3 [facility] 09/21/17 09/22/17 15:35 05:30 Sodium 141 141 Potassium 4.1 3.8 Chloride 109 H 109 H Carbon Dioxide 23.3 25.0 BUN 15 11 Creatinine 1.09 0.98 Calcium 8.8 8.0 L D Cardiac Enzymes 09/21/17 Range/Units 15:35 Troponin I Less than 0.02 L (0.02-0.05) ng/mL Liver Function 09/21/17 Range/Units 15:35 Total Bilirubin 0.3 (0.2-1.0) mg/dL AST 10 L (15-37) U/L ALT 23 (12-78) U/L Alkaline Phosphatase 82 (45-117) U/L Albumin 3.6 (3.4-5.0) g/dL <Kulwinder Hall - 09/22/17 09:48> Abnormal lab results 09/21/17 09/21/17 Range/Units 15:35 15:35 Martin % (Auto) 9.0 H (0.0-8.0) % Eos % (Auto) 4.6 H (0.0-4.0) % Chloride 109 H (98-107) meq/L Estimated GFR 85 L (>89) mL/min AST 10 L (15-37) U/L Troponin I Less than 0.02 L (0.02-0.05) ng/mL Short CBC 09/21/17 Range/Units 15:35 WBC 5.7 (4.0-11.0) th/mm3 Hgb 14.0 (13.0-17.0) gm/dL Hct 43.1 (39.0-51.0) % Plt Count 252 (150-450) th/mm3 [facility] 09/21/17 15:35 Sodium 141 Potassium 4.1 Chloride 109 H Carbon Dioxide 23.3 BUN 15 Creatinine 1.09 Calcium 8.8 Cardiac Enzymes 09/21/17 Range/Units 15:35 Troponin I Less than 0.02 L (0.02-0.05) ng/mL Liver Function 09/21/17 Range/Units 15:35 Total Bilirubin 0.3 (0.2-1.0) mg/dL AST 10 L (15-37) U/L ALT 23 (12-78) U/L Alkaline Phosphatase 82 (45-117) U/L Albumin 3.6 (3.4-5.0) g/dL <Nino Samuel - 09/21/17 17:25> - Imaging Impressions Head CT 09/21/17 00:00 CONCLUSION: 1. Negative for acute process . Chest X-Ray 09/21/17 14:45 CONCLUSION: No acute cardiopulmonary disease. Face CT 09/22/17 00:00 CONCLUSION: 1. Postsurgical changes in the region of the left upper incisor teeth without definite abscess or signs of osteomyelitis. <IsabelKulwinder - 09/22/17 09:48> Impressions Chest X-Ray 09/21/17 14:45 CONCLUSION: No acute cardiopulmonary disease. <Nino Samuel 09/21/17 17:25> - EKG Conduction & morphology: LBBB (Unchanged from previous EKG) <Nino Samuel 09/21/17 19:53> Caprini VTE Risk Assessment Caprini VTE Risk Assessment: No/Low Risk (score <= 1) (DVT prophylaxis not indicated) <Nino Samuel 09/21/17 19:53> Caprini Risk Assessment Model: Point Value = 1 Point Value = 2 Point Value = 3 Point Value = 5 Age 41-60 Minor surgery BMI > 25 kg/m2 Swollen legs Varicose veins or History of unexplained or recurrent spontaneous Oral contraceptives or hormone replacement Sepsis (< 1 month) Serious lung disease, including pneumonia (< 1 month) Abnormal pulmonary function Acute myocardial infarction Congestive heart failure (< 1 month) History of inflammatory bowel disease Medical patient at bed rest Age 61-74 Arthroscopic surgery Major open surgery (> 45 min) Laparoscopic surgery (> 45 min) Malignancy Confined to bed (> 72 hours) Immobilizing plaster cast Central venous access Age >= 75 History of VTE Family history of VTE Factor V Leiden Prothrombin [id number] Lupus anticoagulant Anticardiolipin antibodies Elevated serum homocysteine Heparin-induced thrombocytopenia Other congenital or acquired thrombophilia Stroke (< 1 month) Elective arthroplasty Hip, pelvis, or leg fracture Acute spinal cord injury (< 1 month) <Kulwinder Hall - 09/22/17 09:48> Point Value = 1 Point Value = 2 Point Value = 3 Point Value = 5 Age 41-60 Minor surgery BMI > 25 kg/m2 Swollen legs Varicose veins or History of unexplained or recurrent spontaneous Oral contraceptives or hormone replacement Sepsis (< 1 month) Serious lung disease, including pneumonia (< 1 month) Abnormal pulmonary function Acute myocardial infarction Congestive heart failure (< 1 month) History of inflammatory bowel disease Medical patient at bed rest Age 61-74 Arthroscopic surgery Major open surgery (> 45 min) Laparoscopic surgery (> 45 min) Malignancy Confined to bed (> 72 hours) Immobilizing plaster cast Central venous access Age >= 75 History of VTE Family history of VTE Factor V Leiden Prothrombin [id number] Lupus anticoagulant Anticardiolipin antibodies Elevated serum homocysteine Heparin-induced thrombocytopenia Other congenital or acquired thrombophilia Stroke (< 1 month) Elective arthroplasty Hip, pelvis, or leg fracture Acute spinal cord injury (< 1 month) <Nino Samuel - 09/21/17 19:53> Prophylaxis Regimen: Total Risk Factor Score Risk Level Prophylaxis Regimen 0-1 Low Early ambulation 2 Moderate Order ONE of the following: *Sequential Compression Device (SCD) *Heparin 5000 units SQ BID 3-4 Higher Order ONE of the following medications: *Heparin 5000 units SQ TID *Enoxaparin/Lovenox 40 mg SQ daily (WT < 150 kg, CrCl > 30 mL/min) *Enoxaparin/Lovenox 30 mg SQ daily (WT < 150 kg, CrCl > 10-29 mL/min) *Enoxaparin/Lovenox 30 mg SQ BID (WT < 150 kg, CrCl > 30 mL/min) AND/OR *Sequential Compression Device (SCD) 5 or more Highest Order ONE of the following medications: *Heparin 5000 units SQ TID (Preferred with Epidurals) *Enoxaparin/Lovenox 40 mg SQ daily (WT < 150 kg, CrCl > 30 mL/min) *Enoxaparin/Lovenox 30 mg SQ daily (WT < 150 kg, CrCl > 10-29 mL/min) *Enoxaparin/Lovenox 30 mg SQ BID (WT < 150 kg, CrCl > 30 mL/min) AND *Sequential Compression Device (SCD) <Kulwinder Hall - 09/22/17 09:48> Total Risk Factor Score Risk Level Prophylaxis Regimen 0-1 Low Early ambulation 2 Moderate Order ONE of the following: *Sequential Compression Device (SCD) *Heparin 5000 units SQ BID 3-4 Higher Order ONE of the following medications: *Heparin 5000 units SQ TID *Enoxaparin/Lovenox 40 mg SQ daily (WT < 150 kg, CrCl > 30 mL/min) *Enoxaparin/Lovenox 30 mg SQ daily (WT < 150 kg, CrCl > 10-29 mL/min) *Enoxaparin/Lovenox 30 mg SQ BID (WT < 150 kg, CrCl > 30 mL/min) AND/OR *Sequential Compression Device (SCD) 5 or more Highest Order ONE of the following medications: *Heparin 5000 units SQ TID (Preferred with Epidurals) *Enoxaparin/Lovenox 40 mg SQ daily (WT < 150 kg, CrCl > 30 mL/min) *Enoxaparin/Lovenox 30 mg SQ daily (WT < 150 kg, CrCl > 10-29 mL/min) *Enoxaparin/Lovenox 30 mg SQ BID (WT < 150 kg, CrCl > 30 mL/min) AND *Sequential Compression Device (SCD) <Nino Samuel - 09/21/17 19:53> Assessment and Plan - Assessment (1) Fever Code(s): R50.9 - Fever, unspecified Status: Acute (2) Hypertrophic cardiomyopathy Code(s): I42.2 - Other hypertrophic cardiomyopathy Status: Chronic (3) Hypothyroidism Code(s): E03.9 - Hypothyroidism, unspecified Status: Chronic <Nino Samuel 09/21/17 21:52> (1) Dental infection Code(s): K04.7 - Periapical abscess without sinus Status: Acute (2) Hypertrophic cardiomyopathy Code(s): I42.2 - Other hypertrophic cardiomyopathy Status: Chronic (3) Hypothyroidism Code(s): E03.9 - Hypothyroidism, unspecified Status: Chronic <IsabelKulwinder - 09/22/17 09:48> - Assessment and Plan 1. Fever and chills in a patient with history of cardiac surgery Assessment: Patient is 5 days status post dental procedure. His fever is likely related to this. Due to his history of cardiac surgery we are concerned for endocarditis, however he currently only has 2 minor of Olivera's criteria (fever and cardiac surgical history). We will evaluate for vegetation and bacteremia. He has had stable vitals and does not have leukocytosis. His fever may be related to local infection/abscess. He does have increasing pain in the area of the procedure. -Blood cultures 2 -Stat echocardiogram -Vancomycin and Rocephin (penicillin allergy rash therefore we cannot use Zosyn ) for possible endocarditis -CT head to evaluate for local abscess -Telemetry -CBC daily to follow blood counts -Pain control per pain scale Fluids: Able to tolerate p.o. Electrolytes: monitor and replete as needed Nutrition: Regular diet GI prophylaxis: VTE prophylaxis: Early ambulation 2. Hypertrophic cardiomyopathy status post surgery -Metoprolol extended release 100 mg twice daily 3. Hypothyroidism -Synthroid (brand name) 100 mcg daily <Nino Samuel - 09/21/17 21:55> - Attending Attestation The exam, history, and the medical decision-making described in the above note were completed with the assistance of the resident physician. I reviewed and agree with the findings presented. I attest that I had a [id number] encounter with the patient on the same day, and personally performed and documented my assessment and findings in the medical record. <Kulwinder Hall - 09/22/17 09:48>
[2017-09-21] MEDS ORDERED: Acetaminophen 325 MG Tablet PO PRN (18:13)
[2017-09-21] MEDS ORDERED: Ibuprofen 400 MG Tablet PO PRN (18:29)
[2017-09-21] MEDS ORDERED: Naloxone Inj 0.4 MG/ML Vial IV.PUSH PRN (18:29)
[2017-09-21] MEDS: Morphine Inj 4 MG/ML Vial IV.PUSH PRN ×3 (19:11→22:05)
--- NOTE | 2017-09-21 20:28 | CT ---
EXAM DATE: 09/21/2017 8:14 PM EDT AGE/SEX: 22 years / Male INDICATIONS: Fever with chills. Post tooth extraction with bone graft. Evaluate for abscess. CLINICAL DATA: This is the patient's initial encounter. Patient reports that signs and symptoms have been present for 1 day and indicates a pain score of 1/10. MEDICAL/SURGICAL HISTORY: Cardiovascular disease. Hypothyroidism. Appendectomy. Cholecystectomy. Subaortic resection Tooth extraction with bone graft RADIATION DOSE: 40.87 CTDI (mGy) COMPARISON: [facility] [place] BRAIN [place]/O [place]AST, 10/09/2015. . TECHNIQUE: CT of the head without contrast. Using automated exposure control and adjustment of the mA and/or kV according to patient size, radiation dose was kept as low as reasonably achievable to ob tain optimal diagnostic quality images. DICOM format image data is available electronically for revi ew and comparison. FINDINGS: Cerebrum: The ventricles are normal for age. No evidence of midline shift, mass lesion, hemorrhage or acute infarction. No extraaxial fluid collections are seen. Posterior Fossa: The cerebellum and brainstem are intact. The 4th ventricle is midline. The cerebe llopontine angle is unremarkable. Extracranial: The visualized portion of the orbits is intact. Skull: The calvaria is intact. No evidence of skull fracture. CONCLUSION: 1. Negative for acute process . Electronically signed by: Orville Mendoza MD 09/21/2017 8:26 PM EDT
[2017-09-21] MEDS ORDERED: Non-Formulary Drug (Metoprolol Succinate [Metoprolol Succinate] 100 MG) PO SCH (21:00)
[2017-09-21] MEDS: Senna/Docusate Sodium 8.6/50 MG Tablet PO SCH (21:25)
[2017-09-22] MEDS: Vancomycin Inj 1,500 MG in Sodium Chlor 0.9% Inj 500 ML IV.SIG SCH ×4 (00:10→22:35)
[2017-09-22] MEDS: Morphine Inj 4 MG/ML Vial IV.PUSH PRN ×8 (01:27→22:36)
[2017-09-22] MEDS: Levothyroxine 100 MCG Tablet PO SCH (05:42)
[2017-09-22 06:22] LABS: Baso % (Auto) 0.7 % (0.0-2.0); Eos # (Auto) 0.3 th/mm3 (0.0-0.4); Eos % (Auto) 4.8 % (0.0-4.0); Hematocrit 40.7 % (39.0-51.0); Hemoglobin 13.2 gm/dL (13.0-17.0); Lymph # (Auto) 2.6 th/mm3 (1.0-4.8); Lymph % (Auto) 48.4 % (9.0-44.0); Mean Corpuscular HGB Conc 32.4 % (32.0-36.0); Mean Corpuscular Hemoglobin 28.5 pg (27.0-34.0); Mean Corpuscular Volume 87.8 fL (80.0-100.0); Mean Platelet Volume 8.1 fL (7.0-11.0); Mono # (Auto) 0.5 th/mm3 (0.0-0.9); Neut % (Auto) 37.1 % (16.0-70.0); Platelet Count 198 th/mm3 (150-450); Red Blood Count 4.64 mil/mm3 (4.50-5.90); Red Cell Distribution Width 15.3 % (11.6-17.2); White Blood Count 5.3 th/mm3 (4.0-11.0)
[2017-09-22 06:56] LABS: Anion Gap 7 meq/L (5-15); Blood Urea Nitrogen 11 mg/dL (7-18); Chloride 109 meq/L (98-107); Glomerular Filtration Rate Greater Than 89 mL/min (>89); Glucose,Random 95 mg/dL (74-106); Potassium 3.8 meq/L (3.5-5.1); Sodium 141 meq/L (136-145)
[2017-09-22] MEDS: Senna/Docusate Sodium 8.6/50 MG Tablet PO SCH ×2 (09:19→21:11)
--- NOTE | 2017-09-22 09:44 | CT ---
EXAM DATE: 09/22/2017 9:37 AM EDT AGE/SEX: 22 years / Male INDICATIONS: Right upper dental surgery 6 days ago, evaluate for abscess CLINICAL DATA: This is the patient's initial encounter. Patient reports that signs and symptoms have been present for 4 - 6 days and indicates a pain score of 8/10. MEDICAL/SURGICAL HISTORY: Cardiovascular disease. Hypothyroidism. Appendectomy. Cholecystecto my. Heart surgery RADIATION DOSE: 57.59 CTDI (mGy) COMPARISON: [facility] – [place], [place] FACIAL BONES W/O CONTRAST, 10/09/2015. . TECHNIQUE: Contiguous images in the axial and coronal planes were obtained using helical multirow de tector technique. Using automated exposure control and adjustment of the mA and/or kV according to p atient size, radiation dose was kept as low as reasonably achievable to obtain optimal diagnostic polo lity images. DICOM format image data is available electronically for review and comparison. FINDINGS: There are gas bubbles in the region of the patient's left maxillary bone in the expected location of the patient's incisors to which has been removed surgically. No definite destructive lesions of the a djacent bone is identified to suggest osteomyelitis and no definite focal pocket of abscess is identi fied. There is induration of the soft tissues at the site probably postsurgical change. No significan t pathological adenopathy is seen. CONCLUSION: 1. Postsurgical changes in the region of the left upper incisor teeth without definite abscess or si gns of osteomyelitis. Electronically signed by: Karen Olivera MD 09/22/2017 9:43 AM EDT
--- NOTE | 2017-09-22 09:48 | P.PNFP ---
Subjective Interval history: No acute events overnight and patient states that his pain has slightly improved. Continues to have pain in the right upper maxillary region where he had his recent surgery. This morning he denies any fevers or chills, he denies any nausea or vomiting, he denies any chest pain or palpitations, he denies any shortness of breath. He was able to eat dinner last night without issue. He did have his echocardiogram done this morning with the results pending. In summary, this is a 22-year-old male with past medical history significant for hypertrophic cardiomyopathy status post subaortic resection and septal myomectomy at age 12. He recently had a dental extraction with bone grafting 5 days ago, for which she was on clindamycin as a cardiac infection prophylaxis. On the day prior to arrival, he developed fevers and chills with a T-max of 103 F. He continued to be febrile called his oral surgeon who recommended present to the emergency department to evaluate for infectious endocarditis. Results - Labs Result diagrams: 09/22/17 05:30 09/22/17 05:30 Abnormal lab results 09/21/17 09/21/17 09/22/17 Range/Units 15:35 15:35 05:30 Lymph % (Auto) 48.4 H (9.0-44.0) % [place] % (Auto) 9.0 H 9.0 H (0.0-8.0) % Eos % (Auto) 4.6 H 4.8 H (0.0-4.0) % Chloride 109 H (98-107) meq/L Estimated GFR 85 L (>89) mL/min Calcium (8.5-10.1) mg/dL AST 10 L (15-37) U/L Troponin I Less than 0.02 L (0.02-0.05) ng/mL 09/22/17 Range/Units 05:30 Lymph % (Auto) (9.0-44.0) % Ector % (Auto) (0.0-8.0) % Eos % (Auto) (0.0-4.0) % Chloride 109 H (98-107) meq/L Estimated GFR (>89) mL/min Calcium 8.0 L D (8.5-10.1) mg/dL AST (15-37) U/L Troponin I (0.02-0.05) ng/mL Short CBC 09/21/17 09/22/17 Range/Units 15:35 05:30 WBC 5.7 5.3 (4.0-11.0) th/mm3 Hgb 14.0 13.2 (13.0-17.0) gm/dL Hct 43.1 40.7 (39.0-51.0) % Plt Count 252 198 (150-450) th/mm3 BMP 09/21/17 09/22/17 15:35 05:30 Sodium 141 141 Potassium 4.1 3.8 Chloride 109 H 109 H Carbon Dioxide 23.3 25.0 BUN 15 11 Creatinine 1.09 0.98 Calcium 8.8 8.0 L D Cardiac Enzymes 09/21/17 Range/Units 15:35 Troponin I Less than 0.02 L (0.02-0.05) ng/mL Liver Function 09/21/17 Range/Units 15:35 Total Bilirubin 0.3 (0.2-1.0) mg/dL AST 10 L (15-37) U/L ALT 23 (12-78) U/L Alkaline Phosphatase 82 (45-117) U/L Albumin 3.6 (3.4-5.0) g/dL - Imaging Impressions Head CT 09/21/17 00:00 CONCLUSION: 1. Negative for acute process . Chest X-Ray 09/21/17 14:45 CONCLUSION: No acute cardiopulmonary disease. Physical Exam Vital signs: Vital Signs 09/21/17 14:35 09/21/17 14:37 09/21/17 19:13 Temperature 98.5 F Pulse Rate 72 82 67 Respiratory Rate 16 20 16 Blood Pressure 152/84 H 138/82 137/73 Pulse Oximetry 99 97 97 09/21/17 20:00 09/21/17 23:11 09/22/17 04:00 Temperature 98.7 F 97.7 F 97.8 F Pulse Rate 70 77 54 L Respiratory Rate 18 19 18 Blood Pressure 133/76 104/53 L 99/49 L Pulse Oximetry 99 97 96 09/22/17 07:48 09/22/17 08:53 Temperature 97.7 F 97.7 F Pulse Rate 65 65 Respiratory Rate 16 16 Blood Pressure 109/54 L 109/54 L Pulse Oximetry 97 97 Intake & Output 09/21/17 09/22/17 09/22/17 18:59 06:59 18:59 Intake Total 3727 / 3727 Balance 3727 / 3727 Weight 88.451 kg Intake: IV 1864 Vancomycin Inj 1,000 MG In NS 250 / 250 Inj 250 ML @ 250 mls/hr IV.SIG ONCE ONE Rx#:[id number] Vancomycin Inj 1,500 MG In NS 515 / 515 Inj 500 ML @ 250 mls/hr IV.SIG Q8H JULIETA Rx#:[id number] Rocephin Inj 2,000 MG In NS Inj 100 / 100 100 ML @ 200 mls/hr IV.SIG Q24H JULIETA Rx#:[id number] Oral 1861 Narrative: General: Well-developed, well-appearing young male in no obvious distress. Sitting up in bed Neurologic: Cranial nerves II through XII intact HEENT: Mucous membranes moist. Upper partial plate removed and mouth was examined. He does have poor dentition. Significant erythema around the surgical site on the upper right lateral incisor with a small amount of purulence draining from the area. There is soft tissue swelling in the area significantly tender to palpation. Neck: Supple, nontender without masses or lymphadenopathy, trachea midline. Cardiac: Regular rate and rhythm with 2/6 holosystolic murmur loudest over the tricuspid area. Pulmonary: Nonlabored breathing. Lungs clear to auscultation bilaterally with good air movement Abdomen: Normal bowel sounds, soft and nontender without rebound or guarding Extremities: No edema, 2+ pedal pulses, capillary refill less than 2 seconds. No obvious findings such as Janeway lesions or splinter hemorrhages Assessment and Plan - Assessment (1) Dental infection Code(s): K04.7 - Periapical abscess without sinus Status: Acute Plan: Obvious dental infection at site of recent tooth extraction and bone grafting - CT of the head with no acute process or findings - CT of facial bones has been ordered and is pending - OMFS consult will be placed IV antibiotics: Vancomycin Rocephin Pain control: Marion 06/27/24 to 11/27/24 based on pain scale Today we will start Toradol Concern is for infective endocarditis given structural heart abnormalities from congenital heart disease status post surgical intervention -Concern is low as patient only has one minor criteria based on [place] ( structural heart disease), he does not have any systemic findings of infective endocarditis -Blood cultures 2 ordered and pending -Status echocardiogram ordered, has been performed with results pending -Monitor on telemetry (2) Hypertrophic cardiomyopathy Code(s): I42.2 - Other hypertrophic cardiomyopathy Status: Chronic Plan: Stable, evaluate with echocardiogram today and 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 He states that he had a recent echocardiogram done 2-3 months ago that we can use to compare (3) Hypothyroidism Code(s): E03.9 - Hypothyroidism, unspecified Status: Chronic Plan: Continue home levothyroxine - Assessment and Plan Fluids: Able to tolerate p.o. Electrolytes: monitor and replete as needed Nutrition: Regular diet GI prophylaxis: VTE prophylaxis: Early ambulation
[2017-09-22] MEDS ORDERED: Naloxone Inj 0.4 MG/ML Vial IV.PUSH PRN (10:52)
[2017-09-22] MEDS ORDERED: Ketorolac Inj 30 MG/ML (IVP) Vial IV.PUSH PRN (12:30)
--- NOTE | 2017-09-22 13:34 | ECHRPT ---
Indication: R/O ENDOCARDITIS, S/P SURGERY X12 YRS HOCM CONCLUSIONS Normal left ventricular size. Mild concentric left ventricular hypertrophy. The left ventricular systolic function is hyperdynamic with an estimated ejection fraction in the ra nge of 65- 70%. Mild mitral valve regurgitation. There is mild tricuspid valve regurgitation. The estimated pulmonary arterial pressure is 37.2 mmHg. Trivial pulmonary valve regurgitation. BP: / HR: Rhythm: Sinus MEASUREMENTS (Male / Female) Normal Values Technical Quality:Fair 2D ECHO LV Diastolic Diameter PLAX 4.2 cm 4.2 - 5.9 / 3.9 - 5.3 cm LV Systolic Diameter PLAX 2.8 cm IVS Diastolic Thickness 1.3 cm 0.6 - 1.0 / 0.6 - 0.9 cm LVPW Diastolic Thickness 1.3 cm 0.6 - 1.0 / 0.6 - 0.9 cm LV Relative Wall Thickness 0.6 RV Internal Dim ED PLAX 2.5 cm LVOT Diameter 2.2 cm Aortic Root Diameter 2.9 cm LA Systolic Diameter LX 3.7 cm 3.0 - 4.0 / 2.7 - 3.8 cm M-MODE AV Cusp Separation MM 2.1 cm DOPPLER AV Peak Velocity 178.0 cm/s AV Peak Gradient 12.7 mmHg AV Mean Gradient 7.0 mmHg AV Velocity Time Integral 36.6 cm LVOT Peak Velocity 133.0 cm/s LVOT Peak Gradient 7.1 mmHg LVOT Velocity Time Integral 24.6 cm AV Area Cont Eq vti 2.6 cm AV Area Cont Eq pk 2.8 cm Mitral E Point Velocity 144.0 cm/s Mitral A Point Velocity 48.4 cm/s Mitral E to A Ratio 3.0 LV E' Lateral Velocity 10.7 cm/s Mitral E to LV E' Lateral Ratio 13.5 LV E' Septal Velocity 6.6 cm/s Mitral E to LV E' Septal Ratio 21.7 TR Peak Velocity 261.0 cm/s TR Peak Gradient 27.2 mmHg Right Atrial Pressure 10.0 mmHg Pulmonary Artery Systolic Pressu 37.2 mmHg Right Ventricular Systolic Press 37.2 mmHg PV Peak Velocity 64.7 cm/s PV Peak Gradient 1.7 mmHg FINDINGS LEFT VENTRICLE Normal left ventricular size. Mild concentric left ventricular hypertrophy. The left ventricular systolic function is hyperdynamic with an estimated ejection fraction in the ra nge of 65- 70%. RIGHT VENTRICLE Normal right ventricular size and systolic function. LEFT ATRIUM The left atrial size is normal. RIGHT ATRIUM The right atrial size is normal. ATRIAL SEPTUM The interatrial septum not well visualized. AORTA The aortic root and proximal ascending aorta are normal in size on limited imaging. MITRAL VALVE Mild mitral valve regurgitation. AORTIC VALVE Trileaflet aortic valve. No aortic valve stenosis or regurgitation. TRICUSPID VALVE There is mild tricuspid valve regurgitation. The estimated pulmonary arterial pressure is 37.2 mmHg. PULMONARY VALVE Trivial pulmonary valve regurgitation. VESSELS The inferior vena cava was not well visualized. PERICARDIUM No pericardial effusion. Catalino Johnson MD, FACC, [facility] [place] (Electronically Signed) Final Date:22 September 2017 13:33
--- NOTE | 2017-09-22 14:47 | ECG ---
Date Performed: 09/21/2017 Time Performed: 16:36:20 PTAGE: 22 years EKG: Sinus rhythm LEFT BUNDLE BRANCH BLOCK ABNORMAL ECG Since PREVIOUS TRACING , no significant change noted PREVIOUS TRACIN10/01/2016 21.58 DOCTOR: Catalino Johnson Interpretating Date/Time 09/22/2017 14:45:32
[2017-09-22] MEDS ORDERED: Montelukast 10 MG Tablet PO SCH (18:00)
[2017-09-22] MEDS ORDERED: Zolpidem Tartrate 5 MG Tablet PO PRN (21:00)
[2017-09-22 23:32] VITALS: RESP 16
[2017-09-22] MEDS: Ketorolac Inj 30 MG/ML (IVP) Vial IV.PUSH PRN (23:33)
[2017-09-23] MEDS: Morphine Inj 4 MG/ML Vial IV.PUSH PRN ×3 (01:03→05:57)
[2017-09-23] MEDS: Vancomycin Inj 1,500 MG in Sodium Chlor 0.9% Inj 500 ML IV.SIG SCH ×2 (05:56→12:46)
[2017-09-23] MEDS: Levothyroxine 100 MCG Tablet PO SCH (05:57)
[2017-09-23 06:27] LABS: Hematocrit 39.8 % (39.0-51.0); Hemoglobin 12.9 gm/dL (13.0-17.0); Mean Corpuscular HGB Conc 32.4 % (32.0-36.0); Mean Corpuscular Hemoglobin 28.3 pg (27.0-34.0); Mean Corpuscular Volume 87.3 fL (80.0-100.0); Platelet Count 191 th/mm3 (150-450); Red Blood Count 4.55 mil/mm3 (4.50-5.90); Red Cell Distribution Width 15.2 % (11.6-17.2); White Blood Count 5.9 th/mm3 (4.0-11.0)
[2017-09-23 06:38] LABS: Anion Gap 6 meq/L (5-15); Blood Urea Nitrogen 10 mg/dL (7-18); Calcium 8.5 mg/dL (8.5-10.1); Carbon Dioxide 26.6 meq/L (21.0-32.0); Chloride 107 meq/L (98-107); Glomerular Filtration Rate Greater Than 89 mL/min (>89); Glucose,Random 88 mg/dL (74-106); Potassium 4.1 meq/L (3.5-5.1); Sodium 140 meq/L (136-145)
[2017-09-23 07:18] LABS: Eosinophils 5 % (0-4); Lymphocytes 38 % (9-44); Monocytes 5 % (0-8); Myelocytes 1 % (0-0)
[2017-09-23 07:21] LABS: Platelet Estimate Normal (Normal); Platelet Morphology Normal (Normal)
[2017-09-23] MEDS: Senna/Docusate Sodium 8.6/50 MG Tablet PO SCH ×2 (08:36→08:56)
[2017-09-23] MEDS: Ketorolac Inj 30 MG/ML (IVP) Vial IV.PUSH PRN ×2 (08:37→08:56)
--- NOTE | 2017-09-23 09:55 | P.PNFP ---
Subjective Interval history: Patient seen and examined today. Endorses continued pain at surgical site. Better today than before. Denies nausea, vomiting, fever, chills, abdominal pain, chest pain, shortness of breath, new rash. No other complaints at this time. Spoke with Dr. Cody, patient's oral surgeon, and updated her on his current status. She reports that his surgical site was inflamed however did not appear infected when she last saw him 3 days ago. She notes that if a white area is observed it is likely the bone graft. In regards to antibiotics she stated clindamycin can be continued or changed, she would leave that up to the primary team at this time. She wishes to see him 1-2 days after discharge. <Rogerio Valdovinos - 09/23/17 09:55> Results - Labs Result diagrams: 09/23/17 05:25 09/23/17 05:25 <Kulwinder Hall - 09/23/17 15:49> Abnormal lab results 09/23/17 Range/Units 05:25 Hgb 12.9 L (13.0-17.0) gm/dL Eosinophils % (Manual) 5 H (0-4) % Myelocytes % (Man) 1 H (0-0) % Short CBC 09/23/17 Range/Units 05:25 WBC 5.9 (4.0-11.0) th/mm3 Hgb 12.9 L (13.0-17.0) gm/dL Hct 39.8 (39.0-51.0) % Plt Count 191 (150-450) th/mm3 [facility] 09/23/17 05:25 Sodium 140 Potassium 4.1 Chloride 107 Carbon Dioxide 26.6 BUN 10 Creatinine 0.91 Calcium 8.5 <Kulwinder Hall - 09/23/17 15:49> Abnormal lab results 09/23/17 Range/Units 05:25 Hgb 12.9 L (13.0-17.0) gm/dL Eosinophils % (Manual) 5 H (0-4) % Myelocytes % (Man) 1 H (0-0) % Short CBC 09/23/17 Range/Units 05:25 WBC 5.9 (4.0-11.0) th/mm3 Hgb 12.9 L (13.0-17.0) gm/dL Hct 39.8 (39.0-51.0) % Plt Count 191 (150-450) th/mm3 [facility] 09/23/17 05:25 Sodium 140 Potassium 4.1 Chloride 107 Carbon Dioxide 26.6 BUN 10 Creatinine 0.91 Calcium 8.5 <Rogerio Valdovinos - 09/23/17 09:55> - Imaging Impressions Face CT 09/22/17 00:00 CONCLUSION: 1. Postsurgical changes in the region of the left upper incisor teeth without definite abscess or signs of osteomyelitis. <Rogerio Valdovinos - 09/23/17 09:55> Physical Exam Vital signs: Vital Signs 09/22/17 16:00 09/22/17 17:53 09/22/17 19:56 Temperature 98.1 F 98.2 F Pulse Rate 76 63 Respiratory Rate 16 20 17 Blood Pressure 101/55 L 127/71 Pulse Oximetry 96 96 09/22/17 23:30 09/23/17 04:00 09/23/17 08:00 Temperature 98.7 F 98.0 F 98.2 F Pulse Rate 61 66 57 L Respiratory Rate 16 16 16 Blood Pressure 128/71 122/61 132/61 Pulse Oximetry 96 96 96 09/23/17 10:16 09/23/17 12:00 Temperature 98.4 F Pulse Rate 56 L 54 L Respiratory Rate 16 Blood Pressure 136/73 Pulse Oximetry 98 Intake & Output 09/22/17 09/23/17 09/23/17 18:59 06:59 18:59 Intake Total 1315 / 1315 1130 / 1130 515 / 515 Output Total 5 / 5 Balance 1310 / 1310 1130 / 1130 515 / 515 Intake: IV 515 / 515 1130 / 1130 515 / 515 Vancomycin Inj 1,500 MG In NS 515 / 515 1030 / 1030 515 / 515 Inj 500 ML @ 250 mls/hr IV.SIG Q8H JULIETA Rx#:[id number] Rocephin Inj 2,000 MG In NS Inj 100 / 100 100 ML @ 200 mls/hr IV.SIG Q24H JULIETA Rx#:[id number] Oral 800 / 800 Output: Urine 5 / 5 Other: Date of Last Bowel Movement 09/21/17 <Kulwinder Hall 09/23/17 15:49> Vital Signs 09/22/17 12:00 09/22/17 14:55 09/22/17 16:00 Temperature 97.5 F L 98.1 F Pulse Rate 58 L 76 Respiratory Rate 16 6 L 16 Blood Pressure 115/56 L 101/55 L Pulse Oximetry 96 96 09/22/17 17:53 09/22/17 19:56 09/22/17 23:30 Temperature 98.2 F 98.7 F Pulse Rate 63 61 Respiratory Rate 20 17 16 Blood Pressure 127/71 128/71 Pulse Oximetry 96 96 09/23/17 04:00 09/23/17 08:00 Temperature 98.0 F 98.2 F Pulse Rate 66 57 L Respiratory Rate 16 16 Blood Pressure 122/61 132/61 Pulse Oximetry 96 96 Intake & Output 09/22/17 09/23/17 09/23/17 18:59 06:59 18:59 Intake Total 1315 / 1315 1130 / 1130 Output Total 5 / 5 Balance 1310 / 1310 1130 / 1130 Intake: IV 515 / 515 1130 / 1130 Vancomycin Inj 1,500 MG In NS 515 / 515 1030 / 1030 Inj 500 ML @ 250 mls/hr IV.SIG Q8H JULIETA Rx#:[id number] Rocephin Inj 2,000 MG In NS Inj 100 / 100 100 ML @ 200 mls/hr IV.SIG Q24H JULIETA Rx#:[id number] Oral 800 / 800 Output: Urine 5 / 5 Other: Date of Last Bowel Movement 09/21/17 <Rogerio Valdovinos - 09/23/17 09:55> Narrative: General: Well-developed, well-appearing young male in no obvious distress. Sitting up in bed HEENT: Mucous membranes moist. Upper partial plate removed and mouth was examined. He does have poor dentition. Significant erythema around the surgical site on the upper right lateral incisor with a small amount of purulence draining from the area. There is soft tissue swelling in the area significantly tender to palpation. Neck: Supple, nontender without masses or lymphadenopathy, trachea midline. Cardiac: Regular rate and rhythm with 2/6 holosystolic murmur loudest over the tricuspid area. Pulmonary: Nonlabored breathing. Lungs clear to auscultation bilaterally with good air movement Abdomen: Normal bowel sounds, soft and nontender without rebound or guarding Extremities: No edema, 2+ pedal pulses, capillary refill less than 2 seconds. No obvious findings such as Janeway lesions or splinter hemorrhages <Rogerio Valdovinos - 09/23/17 09:55> Assessment and Plan - Assessment (1) Dental infection Code(s): K04.7 - Periapical abscess without sinus Status: Acute (2) Hypertrophic cardiomyopathy Code(s): I42.2 - Other hypertrophic cardiomyopathy Status: Chronic (3) Hypothyroidism Code(s): E03.9 - Hypothyroidism, unspecified Status: Chronic <Kulwinder Hall - 09/23/17 15:49> (1) Dental infection Code(s): K04.7 - Periapical abscess without sinus Status: Acute Plan: Obvious dental infection at site of recent tooth extraction and bone grafting - CT of the head with no acute process or findings - CT of facial bones without abscess IV antibiotics: Vancomycin Rocephin -failed outpatient clindamycin, will consider options for home p.o. medications Pain control: Toradol with morphine for breakthrough Concern is for infective endocarditis given structural heart abnormalities from congenital heart disease status post surgical intervention -Concern is low as patient only has one minor criteria based on [place] ( structural heart disease), he does not have any systemic findings of infective endocarditis -Blood cultures 2 with no growth to date -Echocardiogram shows mild concentric left ventricular hypertrophy, EF 65-70%, mild mitral and tricuspid regurg, trivial pulmonary valve regurg, no notes of vegetations -Monitor on telemetry (2) Hypertrophic cardiomyopathy Code(s): I42.2 - Other hypertrophic cardiomyopathy Status: Chronic Plan: No emergent pathological findings on echocardiogram. (3) Hypothyroidism Code(s): E03.9 - Hypothyroidism, unspecified Status: Chronic Plan: Continue home levothyroxine <Rogerio Valdovinos - 09/23/17 09:35> - Assessment and Plan Fluids: Able to tolerate p.o. Electrolytes: monitor and replete as needed Nutrition: Regular diet GI prophylaxis: VTE prophylaxis: Early ambulation <Rogerio Valdovinos 09/23/17 09:55> - Attending Attestation Patient examined independently from resident physicians and and case discussed with resident physicians I have read the above note and agree with the assessment/plan as discussed with me I was involved in all medical decision making for this patient Kulwinder Hall MD <Kulwinder Hall - 09/23/17 15:49>
[2017-09-23] MEDS ORDERED: Morphine Inj 4 MG/ML Vial IV.PUSH PRN (10:00)
[2017-09-23 12:05] VITALS: BP 136/73; PULSE 54; TEMP 98.4; O2SAT 98
--- NOTE | 2017-09-23 15:04 | P.DS ---
Date of admission: 09/21/17 17:22 Primary care physician: Cecilia Lebron Brief History from admission: Mr. Mayorga is a 22-year-old male with a past medical history significant for hypertrophic cardiomyopathy status post subaortic and septal myomectomy at 12 years of age. He Presents to the emergency room with fever and chills five days after dental extraction with bone graft. He awoke this morning at 3 AM with subjective fever and chills. His measured temperature shortly thereafter was 103F. He continued to be febrile and called his oral surgeon who recommended he present to the ED. He also reports an increase in pain today. He had 5/10 pain at the site of his extraction for most of this week which increased to 7-8 out of 10 this morning. He has been taking Percocet 10/325 every 4-6 hours and clindamycin 300 mg 3 times daily since the procedure. He has a history in the past of a heart murmur, he is unsure of its type or severity. He reports that this murmur is intermittent. He denies lightheadedness and dizziness, chest pain, shortness of breath, and palpitations. He does have mild nausea without vomiting or diaphoresis. He denies any skin lesions or rashes. DS: Diagnosis - Discharge Diagnosis (1) Dental infection Status: Acute (2) Hypertrophic cardiomyopathy Status: Chronic (3) Hypothyroidism Status: Chronic DS: Medications - Discharge Medications Prescriptions: clindamycin HCl [Cleocin HCl] 450 mg PO TID 7 Days #63 cap ketorolac 10 mg PO Q4-6H PRN 3 Days #18 tab PRN Reason: Pain DS: Summary Hospital Course: Patient admitted 09/21/17 for evaluation of possible endocarditis. Patient had had his upper right lateral incisor removed with a bone graft placed approximately 5 days prior and had spiked a fever the night before. Patient was afebrile while inpatient. Head and face CT without signs of abscess formation. Echocardiogram without findings significant for endocarditis. Bacterial cultures no growth to date. Spoke with patient's oral surgeon who requested he schedule appointment for the next day or 2 following discharge. Patient's clindamycin was increased to 450 3 times daily from 300 3 times daily , prescribed Toradol and discharged home. - Time Spent with Patient Total time spent providing and/or coordinating discharge services: - Quality: VTE Deep Vein Thrombosis/Pulmonary Embolism Present on Admission: No Exam Vital signs: Vital Signs 09/22/17 16:00 09/22/17 17:53 09/22/17 19:56 Temperature 98.1 F 98.2 F Pulse Rate 76 63 Respiratory Rate 16 20 17 Blood Pressure 101/55 L 127/71 Pulse Oximetry 96 96 09/22/17 23:30 09/23/17 04:00 09/23/17 08:00 Temperature 98.7 F 98.0 F 98.2 F Pulse Rate 61 66 57 L Respiratory Rate 16 16 16 Blood Pressure 128/71 122/61 132/61 Pulse Oximetry 96 96 96 09/23/17 10:16 09/23/17 12:00 Temperature 98.4 F Pulse Rate 56 L 54 L Respiratory Rate 16 Blood Pressure 136/73 Pulse Oximetry 98 Intake & Output 09/22/17 09/23/17 09/23/17 18:59 06:59 18:59 Intake Total 1315 / 1315 1130 / 1130 515 / 515 Output Total 5 / 5 Balance 1310 / 1310 1130 / 1130 515 / 515 Intake: IV 515 / 515 1130 / 1130 515 / 515 Vancomycin Inj 1,500 MG In NS 515 / 515 1030 / 1030 515 / 515 Inj 500 ML @ 250 mls/hr IV.SIG Q8H JULIETA Rx#:[id number] Rocephin Inj 2,000 MG In NS Inj 100 / 100 100 ML @ 200 mls/hr IV.SIG Q24H JULIETA Rx#:[id number] Oral 800 / 800 Output: Urine 5 / 5 Other: Date of Last Bowel Movement 09/21/17 Results Procedures completed during hospitalization: Echocardiogram Labs on day of discharge: Labs from last 24 hours 09/23/17 09/23/17 05:25 05:25 WBC 5.9 RBC 4.55 Hgb 12.9 L Hct 39.8 MCV 87.3 MCH 28.3 MCHC 32.4 RDW 15.2 Plt Count 191 MPV 8.0 Prelim Diff (Auto) Manual diff required WBC Differential Manual diff final Seg Neuts % (Manual) 50 Band Neuts % (Manual) 1 Lymphocytes % (Manual) 38 Monocytes % (Manual) 5 Eosinophils % (Manual) 5 H Myelocytes % (Man) 1 H Abs Neuts (Manual) 3.1 Differential Comment . Platelet Estimate Normal Platelet Morphology Normal Sodium 140 Potassium 4.1 Chloride 107 Carbon Dioxide 26.6 Anion Gap 6 BUN 10 Creatinine 0.91 Estimated GFR Greater than 89 Random Glucose 88 Calcium 8.5 Preliminary micro results at discharge 09/21/17 15:35 Aerobic Blood Culture - Preliminary Blood - Peripheral No growth in 2 days Anaerobic Blood Culture - Preliminary No growth in 2 days 09/21/17 15:35 Aerobic Blood Culture - Preliminary Blood - Peripheral No growth in 2 days Anaerobic Blood Culture - Preliminary No growth in 2 days - Impressions ITS Impressions Head CT 09/21/17 00:00 CONCLUSION: 1. Negative for acute process . Chest X-Ray 09/21/17 14:45 CONCLUSION: No acute cardiopulmonary disease. Face CT 09/22/17 00:00 CONCLUSION: 1. Postsurgical changes in the region of the left upper incisor teeth without definite abscess or signs of osteomyelitis. Discharge Plan - Discharge Disposition Patient Disposition: 01 Discharge Home - Discharge Condition Condition: Stable - Discharge Order Discharge Orders: Discharge Order (Routine); Ordered 09/23/17 Ordered By: Rogerio Valdovinos - Discharge Details Anticipated Discharge Date: 09/21/17 - Physicians Team Primary Care Provider: Cecilia Lebron Attending Provider: Kulwinder Hall
== END 2017-09-23 15:41 | disposition home or self-care (01) ==
LOC: NEPGCP 14:25 → NEPC 14:25 → INTOOBSV 17:22 → NEDA 17:22 → NEPGCP 20:14
PROVIDERS: ADMIT Family Medicine; ATTEND Family Medicine
DX: Z90.49 Acquired absence of other specified parts of digestive tract; R94.31 Abnormal electrocardiogram [ECG] [EKG]; Z88.5 Allergy status to narcotic agent; Z88.2 Allergy status to sulfonamides; R50.9 Fever, unspecified; I42.2 Other hypertrophic cardiomyopathy; Z88.0 Allergy status to penicillin; Z87.891 Personal history of nicotine dependence; K04.7 Periapical abscess without sinus; E03.9 Hypothyroidism, unspecified; I08.1 Rheumatic disorders of both mitral and tricuspid valves